=== PATIENT | female | born 1945 | race Caucasian/White ===

== ENCOUNTER → 2016-09-26 | Day surgery (SDC) | payer MEDICARE, OTHER ==
[~2016-09-26] VITALS: Ht 157.5 cm; Wt 80.7 kg
[~2016-09-26] MED LIST: AMIO200T2 PO; APIX5TAB PO; ATOR10TA66 PO; DILT180C54 PO; DILT180C67 PO; ENAL20TA PO; FLU TRIvalent (5 YOA+) 2016-17 (AFLURIA) 0.5 ML IM ONE; LEVO175T5 PO; LIDOCAINE 2% VISCOUS 15 ML UDC ONE; METO-270 PO; METO-272 PO; MIDAZOLAM 2 MG/2 ML (VERSED) VIAL ONE; NS IV 1000 ML 1,000 ML IV SCH; NS IV 1000 ML 1,000 ML ONE; OXYB5TAB PO; OXYB5TAB9 PO; SIMV40TA4 PO; VITA400C60 PO; proPOfol 200 MG/20 ML (DIPRIVAN) VIAL IV ONE
--- OUTSIDE RECORDS SUMMARY | 2016-09-26 08:05 | XMS REPORT | Continuity of Care Document ---
Author Author [facility] Organization [facility] Address Unknown Phone Unavailable Care Team Providers Care Research Coordinator Name Role Phone PCP Unavailable Source Comments Some departments are not documenting in the electronic medical record. If you do not see the information that you expected, contact Release of Information in the Health Information Management department at [phone] for further assistance in locating additional records.[facility] Active Allergies and Adverse Reactions Not on File Current Medications Not on file Active Problems Not on file Social History Tobacco Use Types Packs/Day Years Used Date Never Assessed Plan of Care Health Maintenance Due Date Last Done Comments Physical (Comprehensive) 1952 Exam Pertussis Vaccine 1956 Tetanus Vaccine 1962 Breast Cancer Screening 1985 Colorectal Cancer 1995 Screening Shingles Vaccine 2005 Osteoporosis Screening 2010 Prevnar/Pneumovax (#1) 2010 Influenza Vaccine 05/17/2016 Results from Last 3 Months Not on file
--- OUTSIDE RECORDS SUMMARY | 2016-09-26 08:05 | XMS REPORT | Continuity of Care Document ---
Author Author [facility] Organization [facility] Address Unknown Phone Unavailable Care Team Providers Care Package Dye Stand Loader Name Role Phone PCP Unavailable Source Comments Some departments are not documenting in the electronic medical record. If you do not see the information that you expected, contact Release of Information in the Health Information Management department at [phone] for further assistance in locating additional records.[facility] Active Allergies and Adverse Reactions Not on [...]
[2016-09-26 10:10] VITALS: BP 136/96
[2016-09-26 10:21] LABS: MEAN PLATELET VOLUME 10.2 FL (7.4-10.4); RED BLOOD COUNT 5.31 10^6/uL (4.35-5.85); RED CELL DISTRIBUTION WIDTH 15.4 % (10.0-14.5); WHITE BLOOD COUNT 11.9 10^3/uL (4.3-11.0)
[2016-09-26 10:27] LABS: INR 1.2 (0.8-1.4); PROTHROMBIN TIME PATIENT 15.1 SEC (12.2-14.7)
[2016-09-26 10:34] LABS: ALANINE AMINOTRANSFERASE 21 U/L (0-55); ALBUMIN 4.3 G/DL (3.2-4.5); ANION GAP 8 MMOL/L (5-14); ASPARTATE AMINO TRANSFERASE 26 U/L (5-34); BILIRUBIN,TOTAL 1.4 MG/DL (0.1-1.0); BLOOD UREA NITROGEN 12 MG/DL (7-18); BUN/CREATININE RATIO 14; CALCIUM 9.4 MG/DL (8.5-10.1); CARBON DIOXIDE 28 MMOL/L (21-32); CHLORIDE 102 MMOL/L (98-107); CHOLESTEROL 142 MG/DL (< 200); CREATININE SERUM 0.86 MG/DL (0.60-1.30); DIRECT LDL 78 MG/DL (1-129); GFR ESTIMATED > 60; GLUCOSE 107 MG/DL (70-105); POTASSIUM 4.4 MMOL/L (3.6-5.0); SODIUM 138 MMOL/L (135-145); TOTAL PROTEIN 7.9 G/DL (6.4-8.2); TRIGLYCERIDES 100 MG/DL (<150); VLDL CHOLESTEROL 20 MG/DL (5-40)
--- NOTE | 2016-09-26 10:46 | Diagnostic Imaging Report ---
EXAMINATION: Portable upright radiograph of the chest. INDICATION: Preoperative evaluation for cardioversion. FINDINGS: The heart is mildly enlarged. There is a ring like structure projecting over the lower right lung probably extrinsic. There are also cardioversion pads seen over the left chest. There is no significant consolidation. No effusion or pneumothorax. The mediastinum and melo appear unremarkable. IMPRESSION: Cardiomegaly. Dictated by: Dictated on workstation # [id number]
--- NOTE | 2016-09-26 10:47 | Cardiac Procedure Note-CS/ASA ---
Pre-Procedure Note Pre-Op Procedure Note H&P Reviewed The H&P was reviewed, patient examined and no changes noted. Date H&P Reviewed: Sep 26, 2016 Time H&P Reviewed: 10:47 Conscious Sedation Pre-Proced Time Reviewed: 10:47 ASA Class: 3 Airway Mallampati Classification: (kalisp[place] appropriate class) I. II. III, IV Lungs Heart ASA score ASA 1: a normal healthy patient ASA 2: a patient with a mild systemic disease (mid diabetes, controlled hypertension, obesity x ASA 3: a patient with a severe systemic disease that limits activity (angina , COPD, prior Myocardial infarction) ASA 4: a patient with an incapacitating disease that is a constant threat to life (CHF, renal failure) ASA 5: a moribund patient not expected to survive 24 hrs. (ruptured aneurysm) ASA 6: a declared brain patient whose organs are being harvested. For emergent operations, add the letter E after the classification Grade 3 Sedation Plan: Analgesia, Amnesia, Plan communicated to team members, Discussed options with patient/fam, Discussed risks with patient/fam Note The patient is an appropriate candidate to undergo the planned procedure, sedation, and anesthesia. The patient immediately re-assessed prior to indication. CARLOS FORBES MD Sep 26, 2016 10:47
[2016-09-26 10:55] VITALS: BP 121/69
[2016-09-26 10:55] LABS: THYROID STIMULATING HORMONE 0.16 UIU/ML (0.35-4.94)
--- NOTE | 2016-09-26 10:57 | Progress Note-Standard ---
Standard Progress Note Progress Notes/Assess & Plan Progress/Assessment & Plan Anesthesia Note (1616-1816) Called for sedation (MAC) for FAREED poss. cardioversion. Pt S/E. O2 via N.C. Versed 2 mg IV and Propofol 60 mg IV in divided doses for procedural sedation. Spontaneous ventilation and VSS throughout. Pt tolerated procedure well. Will be available if needed. SOLA FUENTES DO Sep 26, 2016 10:57
--- NOTE | 2016-09-26 11:29 | DISCHARGE SUMMARY ---
[facility] REPORT DATE OF PROCEDURE: 09/26/2016 REFERRING PHYSICIAN: Dr. Diaz. BRIEF HISTORY: Mrs. Miller is a 70-year-old lady with history of atrial fibrillation, left atrial thrombus was suggested by FAREED in July. She was treated with oral anticoagulation and scheduled for FAREED with electrical cardioversion. PROCEDURE NOTE: After explaining the procedure to the patient, all pros and cons were explained. All questions were answered. The patient signed a consent, then she was placed on the left lateral decubitus position. Oropharynx was anesthetized using lidocaine. Conscious sedation achieved with the assistance of anesthesia. Omniplane probe was introduced through the mouth to the esophagus and then into the stomach. Multiple views were obtained. At the end of the procedure Omniplane probe was removed. No complication noted. FINDINGS: 1. The left ventricle is normal in size with normal contractility. 2. The left atrium is dilated. Left atrial appendage is dilated with low velocity. Smoke in the left atrial appendage questionable thrombus was noted. 3. The right atrium is prominent. The right ventricle is normal in size. 4. Mitral valve is normal in morphology with mild mitral regurgitation. 5. Aortic valve is trileaflet with normal opening and closing pattern. 6. Tricuspid valve and pulmonic valve are normal. 7. No pericardial effusion. CONCLUSION: 1. Questionable thrombus in the left atrial appendage. Smoke in the left atrial appendage, dilated left atrium, dilated right atrium. 2. Normal left ventricular size and systolic function. Estimated ejection fraction 60%. 3. Mild mitral regurgitation. DISCUSSION AND RECOMMENDATION: Mrs. Miller will be treated with oral anticoagulation at this time. I will not proceed with electrical cardioversion. FINAL DIAGNOSES: 1. Paroxysmal atrial fibrillation. 2. Left atrial thrombus. 3. Hypertension. 4. Hyperlipidemia. Job ID: [id number] Dictated Date: 09/26/2016 10:48:43 Neon Sign Mechanic Date: 09/26/2016 11:26:29/timothy
[2016-09-26 11:38] VITALS: BP 155/88
== END ==
LOC: CATH 08:02
PROVIDERS: ATTEND Internal Medicine Cardiovascular Disease
DX: I48.0 Paroxysmal atrial fibrillation (principal); I51.3 Intracardiac thrombosis, not elsewhere classified; I10 Essential (primary) hypertension; E78.5 Hyperlipidemia, unspecified; Z79.01 Long term (current) use of anticoagulants; Z79.899 Other long term (current) drug therapy
CPT/HCPCS: 36415; 71010; 80053; 80061; 84443; 85027; 85610; 85730; 87081; 93005; 93312

== ENCOUNTER → 2016-11-20 | Outpatient (CLI) | payer MEDICARE, OTHER ==
[~2016-11-20] MED LIST changes: -FLU TRIvalent (5 YOA+) 2016-17 (AFLURIA) 0.5 ML IM ONE; -LIDOCAINE 2% VISCOUS 15 ML UDC ONE; -MIDAZOLAM 2 MG/2 ML (VERSED) VIAL ONE; -NS IV 1000 ML 1,000 ML IV SCH; -NS IV 1000 ML 1,000 ML ONE; -proPOfol 200 MG/20 ML (DIPRIVAN) VIAL IV ONE
--- OUTSIDE RECORDS SUMMARY | 2016-11-20 09:34 | XMS REPORT | Continuity of Care Document ---
Author Author [facility] Organization [facility] Address Unknown Phone Unavailable Care Team Providers Care Tamale Machine Feeder Name Role Phone PCP Unavailable Source Comments Some departments are not documenting in the electronic medical record. If you do not see the information that you expected, contact Release of Information in the Health Information Management department at [phone] for further assistance in locating additional records.[facility] Active Allergies and Adverse Reactions Not [...]
--- NOTE | 2016-11-20 19:53 | Diagnostic Imaging Report ---
EXAM: Digital mammogram, bilateral screening. The current study was also evaluated with a Computer Aided Detection (CAD) system. COMPARISON: 11/11/14, 10/09/13 and 08/01/12. At this time, there are no current complaints. FINDINGS: As noted on the previous study, the right breast is much smaller than the left breast. The coarse macrocalcifications scattered throughout the right breast seen previously are again evident and do not seem to have changed significantly. There are scattered fibroglandular densities in the left breast which could obscure a lesion. There are also a few benign-appearing calcifications scattered throughout the left breast. When compared to the previous study, there does not not appear to have been any significant change in either breast. There is no primary or secondary sign of malignancy noted. IMPRESSION: 1. There is no evidence of malignancy. 2. The patient should have her annual bilateral screening mammogram on schedule in October of 2017. ACR BI-RADS Category 1: Negative. Result letter will be mailed to the patient. Note: At least 10% of breast cancer is not imaged by mammography. Dictated by: Dictated on workstation # [id number]
== END ==
LOC: RAD 09:31
PROVIDERS: ATTEND Family Medicine
DX: Z12.31 Encounter for screening mammogram for malignant neoplasm of breast (principal)
CPT/HCPCS: 77067

== ENCOUNTER 2017-04-12 19:30 | Outpatient (CLI) | payer MEDICARE | END 2017-04-13 06:00 | disposition home or self-care (01) | LOC: SLEEP 19:30 | PROVIDERS: ATTEND Family Medicine | DX: G47.33 Obstructive sleep apnea (adult) (pediatric) (principal); R06.83 Snoring | CPT/HCPCS: 95811 ==

== ENCOUNTER → 2017-06-04 | Outpatient (CLI) | payer MEDICARE | LOC: CARD 11:52 | PROVIDERS: ATTEND Physician Assistant | DX: I48.2 Chronic atrial fibrillation (principal); I10 Essential (primary) hypertension; E78.2 Mixed hyperlipidemia; R06.02 Shortness of breath | CPT/HCPCS: 93306 ==

== ENCOUNTER → 2017-08-02 | Outpatient (CLI) | payer MEDICARE, OTHER ==
[~2017-08-02] MED LIST changes: -METO-270 PO; -METO-272 PO; +METO-370 PO; +METO-387 PO
--- NOTE | 2017-08-02 14:57 | Diagnostic Imaging Report ---
Two views of the right humerus. INDICATION: Fall. FINDINGS: No fracture or dislocation is seen. Surgical clips along the right breast are seen. Mild degenerative changes in the right acromioclavicular joint are noted. IMPRESSION: No acute process. Dictated by: Dictated on workstation # [id number]
== END ==
LOC: RAD 11:06
PROVIDERS: ATTEND Nurse Practitioner Family
DX: M79.621 Pain in right upper arm (principal)
CPT/HCPCS: 73060

== ENCOUNTER → 2017-12-24 | Outpatient (CLI) | payer MEDICARE ==
--- NOTE | 2017-12-24 13:10 | Diagnostic Imaging Report ---
INDICATION: Routine screening. COMPARISON: Comparison is made with prior studies from 11/20/2016 and 11/11/2014. The current study was also evaluated with a Computer Aided Detection (CAD) system. FINDINGS: Breast asymmetry, right breast being smaller, is again noted. Scattered fibroglandular densities in the left breast appear stable. Marked dystrophic calcifications through the right breast are again noted with scattered benign-appearing calcifications in the left breast. There is an emerging cluster of microcalcifications in the upper left breast anterior depth. Additional views including magnification and ML views are recommended. No spiculated mass is seen. The axillae are unremarkable. IMPRESSION: Left breast calcifications. Additional views are recommended, as described above. ACR BI-RADS Category 0: Incomplete. (Needs additional imaging evaluation). Result letter will be mailed to the patient. Note: At least 10% of breast cancer is not imaged by mammography. Dictated by: Dictated on workstation # [id number]
== END ==
LOC: RAD 08:55
PROVIDERS: ATTEND Family Medicine
DX: Z12.31 Encounter for screening mammogram for malignant neoplasm of breast (principal)
CPT/HCPCS: 77067

== ENCOUNTER → 2018-01-17 | Outpatient (CLI) | payer MEDICARE ==
--- NOTE | 2018-01-17 13:40 | Diagnostic Imaging Report ---
Indication: Left breast calcification. Patient presents for additional views. Correlation is made with the recent screening study from 12/24/2017. 2-D and 3-D unilateral left diagnostic mammography was performed. There are some calcifications in the superior left breast. These appear to be fairly benign. No associated soft tissue mass is seen. No significant pleomorphism is identified. Impression: BI-RADS 3 Probably benign calcification superior left breast anterior depth. Even so, followup left mammogram in 6 months is recommended to confirm stability. ACR BI-RADS Category 3: Probably benign findings. Result letter will be mailed to the patient. Note: At least 10% of breast cancer is not imaged by mammography. Dictated by: Dictated on workstation # [id number]
== END ==
LOC: RAD 12:39
PROVIDERS: ATTEND Nurse Practitioner Family
DX: R92.0 Mammographic microcalcification found on diagnostic imaging of breast (principal)

== ENCOUNTER → 2018-09-03 | Outpatient (CLI) | payer MEDICARE ==
[~2018-09-03] MED LIST changes: -AMIO200T2 PO; +AMIO200T4 PO
--- NOTE | 2018-09-03 10:06 | Diagnostic Imaging Report ---
Indication: Six-month followup left breast calcifications. Correlation is made with prior mammogram from 12/24/2017 and 01/17/2018. Unilateral left 2-D and 3-D diagnostic mammography was performed including CC, MLO and ML views. Calcifications in the upper and slightly outer left breast anterior depth appear to be stable. No soft tissue mass is seen. There are numerous benign calcifications throughout the left breast. Left axilla is unremarkable. Impression: BI-RADS 3 Stable left breast calcification. Followup mammogram in 6 months recommended to confirm stability. ACR BI-RADS Category 3: Probably benign findings. Result letter will be mailed to the patient. Note: At least 10% of breast cancer is not imaged by mammography. Dictated by: Dictated on workstation # [id number]
== END ==
LOC: RAD 08:08
PROVIDERS: ATTEND Family Medicine
DX: R92.0 Mammographic microcalcification found on diagnostic imaging of breast (principal); Z85.3 Personal history of malignant neoplasm of breast

== ENCOUNTER → 2018-09-17 | Outpatient (CLI) | payer MEDICARE | LOC: CARD 12:41 | PROVIDERS: ATTEND Internal Medicine Cardiovascular Disease | DX: I48.0 Paroxysmal atrial fibrillation (principal); R06.02 Shortness of breath; I10 Essential (primary) hypertension; E78.2 Mixed hyperlipidemia | CPT/HCPCS: 93306 ==

== ENCOUNTER → 2019-02-13 | Outpatient (CLI) | payer MEDICARE ==
--- NOTE | 2019-02-13 15:36 | Diagnostic Imaging Report ---
PROCEDURE: US Bilateral lower extremity arterial. TECHNIQUE: Multiple real-time grayscale images are obtained through both lower extremity arterial systems with color Doppler imaging and color Doppler spectral analysis. INDICATION: Bilateral cold feet. FINDINGS: There are primarily triphasic and biphasic waveforms throughout both lower extremity arterial systems. Velocities are symmetric bilaterally. No velocity elevation or stenosis is seen. No occlusion is identified. IMPRESSION: Unremarkable bilateral lower extremity arterial Doppler. Dictated by: Dictated on workstation # [id number]
== END ==
LOC: RAD 13:08
PROVIDERS: ATTEND Family Medicine
DX: R20.9 Unspecified disturbances of skin sensation (principal); E08.59 Diabetes mellitus due to underlying condition with other circulatory complications
CPT/HCPCS: 93925

== ENCOUNTER → 2019-05-21 | Outpatient (CLI) | payer MEDICARE ==
--- NOTE | 2019-05-21 13:44 | Diagnostic Imaging Report ---
Indication: Six-month followup of left breast calcifications. The patient also has right breast carcinoma. Correlation is made with prior mammograms from 09/03/2018 and 01/17/2018. 2-D and 3-D bilateral diagnostic mammography was performed with CAD. Scattered fibroglandular densities in the left breast are identified. There is marked dystrophic calcifications in the right breast, post therapeutic. Overall appearance is stable. Calcifications noted in the anterior aspect of the left breast upper aspect appear to be stable. Numerous benign calcifications throughout the left breast are also noted. No new mass is seen. Axillae are unremarkable. Impression: BI-RADS Category 3. Stable bilateral mammograms. Left breast calcifications now show 18 months of stability. One additional six-month followup is recommended to confirm stability. ACR BI-RADS Category 3: Probably benign findings. Result letter will be mailed to the patient. Note: At least 10% of breast cancer is not imaged by mammography. Dictated by: Dictated on workstation # [id number]
== END ==
LOC: RAD 08:13
PROVIDERS: ATTEND Family Medicine
DX: C50.911 Malignant neoplasm of unspecified site of right female breast (principal); R92.1 Mammographic calcification found on diagnostic imaging of breast
CPT/HCPCS: 77066

== ENCOUNTER → 2019-11-26 | Outpatient (CLI) | payer MEDICARE ==
[~2019-11-26] MED LIST changes: -METO-370 PO; -METO-387 PO; +METO50TA7 PO; +MTP25TSR PO; +OXYB-52 PO; -OXYB5TAB PO; +OXYB5TAB13 PO; -OXYB5TAB9 PO; +SIMV40TA25 PO; -SIMV40TA4 PO
--- NOTE | 2019-11-26 09:13 | Diagnostic Imaging Report ---
INDICATION: Six-month follow-up of left breast calcifications. Correlation is made with mammograms dating back to 2017. Unilateral left 2-D and 3-D diagnostic mammography was performed with CAD. Left breast calcifications are stable. In particular the calcifications in the retroareolar left breast appear to be stable. These now show 2 years of stability. No mass is seen. Left axilla are unremarkable. IMPRESSION: BI-RADS 2 No mammographic features suspicious for malignancy. In particular, left breast calcifications that have been followed now show 2 years of stability. Patient may return to routine annual screening mammography. ACR BI-RADS Category 2: Benign findings. Result letter will be mailed to the patient. Note: At least 10% of breast cancer is not imaged by mammography. Dictated by: Dictated on workstation # [id number]
== END ==
LOC: RAD 08:31
PROVIDERS: ATTEND Nurse Practitioner Family
DX: N63.20 Unspecified lump in the left breast, unspecified quadrant (principal); R92.1 Mammographic calcification found on diagnostic imaging of breast

== ENCOUNTER → 2020-07-11 | Outpatient (CLI) | payer MEDICARE ==
[~2020-07-11] MED LIST changes: -AMIO200T4 PO; +AMIO200T6 PO; -ENAL20TA PO; +ENAL20TA16 PO
== END ==
LOC: CARD 12:00
PROVIDERS: ATTEND Internal Medicine Cardiovascular Disease
DX: I48.91 Unspecified atrial fibrillation (principal); I11.9 Hypertensive heart disease without heart failure; E78.2 Mixed hyperlipidemia; R06.02 Shortness of breath; I08.3 Combined rheumatic disorders of mitral, aortic and tricuspid valves
CPT/HCPCS: 93306

== ENCOUNTER → 2020-12-13 | Outpatient (CLI) | payer MEDICARE ==
--- NOTE | 2020-12-14 07:34 | Diagnostic Imaging Report ---
EXAMINATION: Digital mammogram INDICATION: Bilateral screening This study was compared to the prior exams of 11/26/2019, 05/21/2019, 09/03/2018 and 12/24/2017. At this time there are no current complaints. By history the patient has had a prior lumpectomy on the right for carcinoma in 1997. As noted on the prior studies the right breast is considerably smaller than the left breast and there are diffuse dystrophic calcifications throughout the right breast. These findings are quite similar to the prior exam. However in the interval since this prior exam a small group of microcalcifications has developed in the inferomedial aspect of the right breast at middle depth. These calcifications lie approximately 5 cm from the nipple in the 5 o'clock position of the right breast. These calcifications are most likely benign. Even so, I would recommend that a compression/magnification of this area be obtained in the CC and ML projections to better characterize them. The previous study also noted a number of micro-calcifications scattered throughout the lateral aspect of the left breast. Those micro-calcifications are again evident and no different. The fibroglandular tissue in both breasts is heterogeneously dense. This does limit the sensitivity of this exam. There is no primary or secondary sign of malignancy noted. IMPRESSION: 1. Additional mammographic views of the microcalcifications in the right breast would be recommended for further study. 2. There is no evidence of malignancy involving the left breast. ACR BI-RADS Category 0: Incomplete. (Needs additional imaging evaluation). Result letter will be mailed to the patient. Note: At least 10% of breast cancer is not imaged by mammography. Dictated by: Dictated on workstation # [id number]
== END ==
LOC: RAD 13:16
PROVIDERS: ATTEND Nurse Practitioner
DX: Z12.31 Encounter for screening mammogram for malignant neoplasm of breast (principal)
CPT/HCPCS: 77063; 77067

== ENCOUNTER → 2020-12-30 | Outpatient (CLI) | payer MEDICARE ==
--- NOTE | 2020-12-30 15:06 | Diagnostic Imaging Report ---
INDICATION: Right breast calcifications. Patient presents for additional views. Correlation is made with screening study from 12/13/2020. Unilateral right 2-D and 3-D diagnostic mammography was performed with CAD. Included magnification CC and ML views as well as conventional 90 degree lateral views. Punctate cluster of microcalcifications in the lower inner right breast appear benign. No associated soft tissue mass is seen. There are numerous dystrophic calcifications throughout the right breast. IMPRESSION: BI-RADS Category 2. Benign-appearing calcifications in the lower inner right breast. The patient may return to routine annual screening mammography. Dictated by: Dictated on workstation # [id number]
== END ==
LOC: RAD 13:45
PROVIDERS: ATTEND Nurse Practitioner
DX: R92.1 Mammographic calcification found on diagnostic imaging of breast (principal); Z85.3 Personal history of malignant neoplasm of breast
CPT/HCPCS: 77065; G0279

== ENCOUNTER → 2021-11-20 | Outpatient (CLI) | payer MEDICARE ==
[~2021-11-20] VITALS: Ht 157 cm; Wt 87.0 kg
[~2021-11-20] MED LIST changes: -AMIO200T6 PO; +AMIO200T65 PO; +REGADENOSON 0.4 MG/5 ML SYR (LEXISCAN) IV ONE
[2021-11-20] MEDS: CATHETER FLUSH 10 ML SYR IVP PRN ×2 (08:28→09:58)
[2021-11-20 09:55] VITALS: BP 154/91
--- NOTE | 2021-11-20 12:37 | Cardiology Stress Test Report ---
Stress Test Report Date of Procedure/Referring: Date of Procedure: Nov 20, 2021 Emili Borges Admitting Physician No,Local Physician Indications: A Fib Baseline Heart Rate: 110 Baseline Blood Pressure: Blood Pressure Systolic: 154 Blood Pressure Diastolic: 91 Baseline Vitals Vital Signs Date Time Temp Pulse Resp B/P (MAP) Pulse Ox O2 Delivery O2 Flow Rate FiO2 11/20/21 09:55 110 20 154/91 (112) 98 Room Air Baseline EKG: Baseline EKG: atrial fibrillation Summary After explaining the procedure to the patient, she signed a consent and then brought to the stress nuclear laboratory. Patient received 0.4 mg Lexiscan for stress test, ECG, heart rate and blood pressure were monitored continuously. Resting and stress dose of radio tracer were injected, imaging was acquired and reviewed in short axis, horizontal long axis and vertical long axis views. TID: 0.82 SSS: 4 SDS: 3 EF: 79 1. Patient tolerated Lexiscan well 2. Baseline atrial fibrillation persisted during test 3. Vertical axis of the ventricle affecting the quality of the images with mild reversible ischemia involving the apex most probably due to to the vertical position of the left ventricle. Overall there is no significant ischemia or infarction on SPECT images 4. Normal left ventricular size, EF 79%, gated images are unreliable due to underlying atrial fibrillation CARLOS FORBES MD Nov 20, 2021 12:37
== END ==
LOC: CARD 08:30
PROVIDERS: ATTEND Physician Assistant
DX: I48.20 Chronic atrial fibrillation, unspecified (principal)
CPT/HCPCS: 78452; 93017; A9502

== ENCOUNTER → 2022-01-16 | Outpatient (CLI) | payer MEDICARE ==
[~2022-01-16] MED LIST changes: -REGADENOSON 0.4 MG/5 ML SYR (LEXISCAN) IV ONE
--- NOTE | 2022-01-16 14:45 | Diagnostic Imaging Report ---
INDICATION: Postmenopausal state. COMPARISON: 01/26/2003. FINDINGS: AP Spine L1-L4: [BMD (g/cm2): 1.243] [T-Score: 0.4] [Z-Score: 1.4] [BMD Previous: 1.440] [BMD % Change: -13.7] LT Hip Neck: [BMD (g/cm2): 0.922] [T-Score: -0.8] [Z-Score: 0.6] LT Hip Total: [BMD (g/cm2):0.945] [T-Score:-0.5] [Z-Score: 0.7] [BMD Previous: 1.027] [BMD % Change: -8.1] RT Hip Neck: [BMD (g/cm2):0.744] [T-Score:-2.1] [Z-Score:-0.6] RT Hip Total: [BMD (g/cm2):0.788] [T-score:-1.7] [Z-Score:-0.5] [BMD Previous:1.136] [BMD % Change:-30.6] *Indicates significant change from prior examination based on 95% confidence level. World Health Organization criteria for BMD interpretation classify patients as Normal (T-score at or above -1.0), Osteopenic (T-score between -1.0 and -2.5) or Osteoporotic (T-score at or below -2.5). LIMITATIONS AND MODIFICATION: None. FRACTURE RISK (FRAX SCORE): The ten year probability of (%): Major Osteoporotic Fracture: [13.3] Hip Fracture: [3.6] IMPRESSION: 1. Osteopenia (Low bone mass). 2. No significant change in bone mineral density since prior examination. 3. See below National Osteoporosis Foundation guidelines on when to potentially initiate pharmacologic therapy. Based on the National Osteoporosis Foundation Guidelines, pharmacologic treatment should be initiated in any of the following, unless clinical conditions suggest otherwise: * Any patient with prior fragility fracture of the hip or vertebrae. A spine fracture indicates 5X risk for subsequent spine fracture and 2X risk for subsequent hip fracture. * Osteoporosis (T-score <-2.5). * Postmenopausal women and men age 50 and older with low bone mass/osteopenia (T-score between -1.0 and -2.5) by DXA and 10-year major osteoporotic fracture greater than 20% or a 10-year probability of hip fracture greater than 3%. These fracture risks are supplied above in the FRAX score, if applicable. * Clinician judgement and/or patient preferences may indicate treatment for people with 10-year fracture probabilities above or below these levels. Dictated by: Dictated on workstation # [id number]
== END ==
LOC: RAD 14:00
PROVIDERS: ATTEND Nurse Practitioner
DX: M85.59 Aneurysmal bone cyst, multiple sites (principal); Z78.0 Asymptomatic menopausal state
CPT/HCPCS: 77080

== ENCOUNTER → 2022-03-02 | Outpatient (CLI) | payer MEDICARE ==
--- NOTE | 2022-03-02 16:13 | Diagnostic Imaging Report ---
INDICATION: Routine screening. Comparison is made with prior mammogram from 12/13/2020 and 05/21/2019. 2-D and 3-D bilateral screening mammography was performed with CAD. Posterior changes of the right breast are again noted. Right breast is considerably smaller than the left. There is significant dystrophic calcifications throughout the right breast. There are scattered benign calcification throughout the left breast. No mass is identified. No malignant-appearing microcalcifications are seen. Axillae are unremarkable. IMPRESSION: No mammographic features suspicious for malignancy are identified. ACR BI-RADS Category 2: Benign findings. Result letter will be mailed to the patient. Note: At least 10% of breast cancer is not imaged by mammography. BI-RADS Category 2 Dictated by: Dictated on workstation # [id number]
== END ==
LOC: RAD 11:30
PROVIDERS: ATTEND Nurse Practitioner
DX: Z12.31 Encounter for screening mammogram for malignant neoplasm of breast (principal)
CPT/HCPCS: 77063; 77067

== ENCOUNTER 2022-07-05 12:58 | Inpatient (IN) | payer MEDICARE ==
[~2022-07-05] VITALS: Ht 157.5 cm; Wt 84.5 kg
--- NOTE | 2022-07-05 13:07 | ED Fall/Injury ---
General Stated Complaint: RT KNEE PAIN Source: patient, EMS Exam Limitations: no limitations History of Present Illness Date Seen by Provider: Jul 05, 2022 Time Seen by Provider: 12:59 Initial Comments 76-year-old female with past medical history of persistent A. fib on blood thinners coming in via EMS from home after a fall. Around 12:00 she was walking outside, right foot got stuck, fell and landed on her right side. Has severe right hip pain which is constant, worse with movement, better with rest. EMS reports she was in A. fib with blood pressure in the 90s systolic. She denies hitting her head or passing out. She denies any headache, and states she remembers all events. Denies any other extremity pain other than her right hip. Also denies any neck or back pain. Allergies and Home Medications Allergies Coded Allergies: No Allergy Information Available (Unverified , 05/28/16) Patient Home Medication List Home Medication List Reviewed: Yes Amiodarone HCl (Amiodarone HCl) 200 Mg Tablet, 400 MG PO BID Prescribed by: RIVER MANLEY on 01/17/17 1418 Apixaban (Eliquis) 5 Mg Tablet, 5 MG PO BID, (Reported) Entered as Reported by: TIFFANY MUELLER on 07/18/16 1032 Atorvastatin Calcium (Atorvastatin Calcium) 10 Mg Tablet, 10 MG PO HS Prescribed by: RIVER MANLEY on 01/17/17 1431 Diltiazem HCl (Cartia Xt) 180 Mg Cap.er.24h, 180 MG PO DAILY, (Reported) Entered as Reported by: ITFFANY MUELLER on 09/26/16 1022 Enalapril Maleate (Enalapril Maleate) 20 Mg Tablet, 20 MG PO HS, (Reported) Entered as Reported by: TIFFANY MUELLER on 07/18/16 1032 Levothyroxine Sodium (Levothyroxine Sodium) 175 Mcg Tablet, 175 MCG PO DAILY, (Reported) Entered as Reported by: TIFFANY MUELLER on 07/18/16 1032 Metoprolol Succinate (Metoprolol Succinate) 50 Mg Tab.er.24h, 50 MG PO DAILY, (Reported) Entered as Reported by: TIFFANY MUELLER on 09/26/16 1023 Oxybutynin Chloride (Oxybutynin Chloride) 5 Mg Tablet, 5 MG PO HS, (Reported) Entered as Reported by: TIFFANY MUELLER on 07/18/16 1044 Vitamin E Acetate (Vitamin E) 400 Unit Capsule, 400 UNIT PO DAILY, (Reported) Entered as Reported by: TIFFANY MUELLER on 07/18/16 1032 Review of Systems Review of Systems Constitutional: No fever Eyes: No Symptoms Reported Ears, Nose, Mouth, Throat: no symptoms reported Respiratory: no symptoms reported Cardiovascular: no symptoms reported Gastrointestinal: no symptoms reported Genitourinary: no symptoms reported Musculoskeletal: see HPI Skin: no symptoms reported Psychiatric/Neurological: No Symptoms Reported All Other Systems Reviewed Negative Unless Noted: Yes Past Uzytevr-Djwvht-Jprfuz Hx Patient Social History Substance use?: No Alcohol Use?: No Past Medical History Surgeries: Yes (bladder sx) Breast Physical Exam Vital Signs Vital Signs - First Documented 07/05/22 12:59 Temp 36.3 Pulse 76 Resp 18 B/P (MAP) 100/53 (69) Pulse Ox 96 Capillary Refill : Height, Weight, BMI Height: 5'2.00" Weight: 189lbs. 8.5oz. [id number]; 35.29 BMI Method: General Appearance: WD/WN, no apparent distress HEENT: PERRL/EOMI, normal ENT inspection, pharynx normal Neck: non-tender, full range of motion, supple, normal inspection Cardiovascular: regular rate, rhythm, no edema, no murmur Respiratory: chest non-tender, lungs clear, normal breath sounds, no respiratory distress, no accessory muscle use Gastrointestinal: normal bowel sounds, non tender, soft; No distended, No guarding, No rebound Back: normal inspection, no CVA tenderness, no vertebral tenderness Extremities: no pedal edema, no calf tenderness, normal capillary refill, other (Right lower extremity externally rotated and shortened, neurovascularly intact distally, knee extension intact, tender along the proximal femur and hip) Neurologic/Psychiatric: no motor/sensory deficits, alert, normal mood/affect, oriented x 3 Skin: normal color, warm/dry Lymphatic: no adenopathy Malcolm Coma Score Best Eye Response: (4) Open Spontaneously Best Verbal Response: (5) Oriented Best Motor Response: (6) Obeys Commands Progress/Results/Core Measures Results/Orders Lab Results Laboratory Tests Test 07/05/22 13:15 Range/Units White Blood Count 11.4 H 4.3-11.0 10^3/uL Red Blood Count 4.53 3.80-5.11 10^6/uL Hemoglobin 14.2 11.5-16.0 g/dL Hematocrit 42 35-52 % Mean Corpuscular Volume 92 80-99 fL Mean Corpuscular Hemoglobin 31 25-34 pg Mean Corpuscular Hemoglobin Concent 34 32-36 g/dL Red Cell Distribution Width 15.9 H 10.0-14.5 % Platelet Count 270 130-400 10^3/uL Mean Platelet Volume 9.4 9.0-12.2 fL Immature Granulocyte % (Auto) 1 % Neutrophils (%) (Auto) 70 42-75 % Lymphocytes (%) (Auto) 21 12-44 % Monocytes (%) (Auto) 7 0-12 % Eosinophils (%) (Auto) 1 0-10 % Basophils (%) (Auto) 0 0-10 % Neutrophils # (Auto) 8.0 H 1.8-7.8 10^3/uL Lymphocytes # (Auto) 2.4 1.0-4.0 10^3/uL Monocytes # (Auto) 0.8 0.0-1.0 10^3/uL Eosinophils # (Auto) 0.1 0.0-0.3 10^3/uL Basophils # (Auto) 0.1 0.0-0.1 10^3/uL Immature Granulocyte # (Auto) 0.1 0.0-0.1 10^3/uL Prothrombin Time 23.3 H 12.2-14.7 SEC INR Comment 2.0 H 0.8-1.4 Activated Partial Thromboplast Time 44 H 24-35 SEC Sodium Level 126 L 135-145 MMOL/L Potassium Level 3.5 L 3.6-5.0 MMOL/L Chloride Level 90 L 98-107 MMOL/L Carbon Dioxide Level 25 21-32 MMOL/L Anion Gap 11 5-14 MMOL/L Blood Urea Nitrogen 15 7-18 MG/DL Creatinine 1.15 0.60-1.30 MG/DL Estimat Glomerular Filtration Rate 49 BUN/Creatinine Ratio 13 Glucose Level 163 H 70-105 MG/DL Calcium Level 8.9 8.5-10.1 MG/DL Corrected Calcium 9.1 8.5-10.1 MG/DL Total Bilirubin 1.7 H 0.1-1.0 MG/DL Aspartate Amino Transf (AST/SGOT) 29 5-34 U/L Alanine Aminotransferase (ALT/SGPT) 18 0-55 U/L Alkaline Phosphatase 58 40-136 U/L Total Protein 6.7 6.4-8.2 GM/DL Albumin 3.8 3.2-4.5 GM/DL My Orders Orders - CATALINA BOB MD Cbc With Automated Diff (07/05/22 13:04) Comprehensive Metabolic Panel (07/05/22 13:04) Protime With Inr (07/05/22 13:04) Partial Thromboplastin Time (07/05/22 13:04) Ct Head/Cervical Spine Wo (07/05/22 13:04) Femur, Right, 2 Views (07/05/22 13:04) Pelvis With Right Hip 2-3views (07/05/22 13:04) Fentanyl Inj (Sublimaze Injection) (07/05/22 13:15) Chest 1 View, Ap/Pa Only (07/05/22 13:50) Ed Admission (Communication) (07/05/22 14:42) Medications Given in ED Current Medications Medications Dose Ordered Sig/Donavon Route Start Time Stop Time Status Last Admin Dose Admin Fentanyl Citrate 50 mcg ONCE ONCE IVP 07/05/22 13:15 07/05/22 13:16 DC 07/05/22:22 50 MCG Vital Signs/I&O 07/05/22 12:59 Temp 36.3 Pulse 76 Resp 18 B/P (MAP) 100/53 (69) Pulse Ox 96 Progress Progress Note : Progress Note 76-year-old female with above history coming in after mechanical fall landing on her right side. ABCs were intact and vitals were stable on presentation with a GCS of 15. Physical exam with a externally rotated and shortened right hip. X- ray of the pelvis with a right-sided impacted mildly displaced intertrochanter fracture. I contacted Dr. MCCALL who recommends going to the OR tomorrow with her being n.p.o. at midnight. CT head and chest x-ray otherwise negative for any acute findings. Contacted Dr. Cazares who admit the patient for further evaluation and management. Also contacted Dr. Barr for consultation given her A. fib. Diagnostic Imaging Diagonstic Imaging: Xray (pelvis, right femur, chest), CT (head) Comments [facility], [place] NAME: CHAYO CALVERT [facility] REC#: [id number] PT STATUS: REG ER : 1945 PHYSICIAN: CATALINA BOB MD ADMIT DATE: 07/05/22/ER Draft Date of Exam:07/05/22 FEMUR, RIGHT, 2 VIEWS INDICATION: Post fall onto concrete, trauma, pain TECHNIQUE: Frontal and lateral views of the right femur CORRELATION STUDY: None FINDINGS: Comminuted, impacted and mildly angulated right intertrochanteric femur fracture. There is preservation of femoral head acetabular relationship. The remainder of the femur is otherwise intact. While limited assessment, there appears to be rather advanced degenerative changes at the right knee. IMPRESSION: 1. Comminuted, impacted right intertrochanteric proximal femur fracture. Dictated on workstation # [id number] Dict: 07/05/22 1416 Trans: 07/05/22 [facility] [id number] Interpreted by: TRENT BEAN DO Electronically signed by: Departure Impression Primary Impression: Intertrochanteric fracture Qualified Codes: S72.141A - Displaced intertrochanteric fracture of right femur, initial encounter for closed fracture Additional Impression: Afib Qualified Codes: I48.21 - Permanent atrial fibrillation Disposition: ADMITTED INPATIENT Condition: Stable Admissions Decision to Admit Reason: Admit from ER (General) Decision to Admit/Date: Jul 05, 2022 Time/Decision to Admit Time: 14:30 Departure-Patient Inst. Referrals: Kranthi POOL MD (PCP) Primary Care Physician CATALINA BOB MD Jul 05, 2022 13:07
[2022-07-05] MEDS ORDERED: fentaNYL INJ 100 MCG/2 ML AMP IVP ONE (13:15)
[2022-07-05 13:24] LABS: BASOPHILS # (AUTO) 0.1 10^3/uL (0.0-0.1); BASOPHILS % (AUTO) 0 % (0-10); EOSINOPHILS # (AUTO) 0.1 10^3/uL (0.0-0.3); EOSINOPHILS % (AUTO) 1 % (0-10); HEMATOCRIT 42 % (35-52); HEMOGLOBIN 14.2 g/dL (11.5-16.0); LYMPHOCYTES # (AUTO) 2.4 10^3/uL (1.0-4.0); LYMPHOCYTES % (AUTO) 21 % (12-44); MEAN CORPUSCULAR HEMOGLOBIN 31 pg (25-34); MEAN CORPUSCULAR HGB CONC 34 g/dL (32-36); MEAN CORPUSCULAR VOLUME 92 fL (80-99); MEAN PLATELET VOLUME 9.4 fL (9.0-12.2); MONOCYTES # (AUTO) 0.8 10^3/uL (0.0-1.0); MONOCYTES % (AUTO) 7 % (0-12); NEUTROPHILS % (AUTO) 70 % (42-75); PLATELET COUNT 270 10^3/uL (130-400); WHITE BLOOD COUNT 11.4 10^3/uL (4.3-11.0)
[2022-07-05 13:38] LABS: PROTHROMBIN TIME PATIENT 23.3 SEC (12.2-14.7)
[2022-07-05 13:40] LABS: ALBUMIN 3.8 GM/DL (3.2-4.5)
[2022-07-05 13:41] LABS: POTASSIUM 3.5 MMOL/L (3.6-5.0)
[2022-07-05 13:42] LABS: CALCIUM 8.9 MG/DL (8.5-10.1)
[2022-07-05 13:43] LABS: TOTAL PROTEIN 6.7 GM/DL (6.4-8.2)
[2022-07-05 13:45] LABS: BILIRUBIN,TOTAL 1.7 MG/DL (0.1-1.0)
[2022-07-05 13:47] LABS: CREATININE SERUM 1.15 MG/DL (0.60-1.30)
--- NOTE | 2022-07-05 14:07 | Diagnostic Imaging Report ---
PROCEDURE: CT head and CT cervical spine without contrast. TECHNIQUE: Multiple contiguous axial images were obtained through the brain and cervical spine without the use of intravenous contrast. Sagittal and coronal reformations through the cervical spine were then performed. Auto Exposure Controls were utilized during the CT exam to meet ALARA standards for radiation dose reduction. INDICATION: Fall and on blood thinners. Comparison is made with prior head CT from 05/28/2016. CT HEAD: Encephalomalacia in the right cerebellar hemisphere appears similar to prior exam. The ventricles and sulci appears stable. No sulcal effacement or midline shift is identified. No acute intra-axial or extra-axial hemorrhage is detected. Cisterns are patent. Visualized paranasal sinuses are clear. IMPRESSION: Stable chronic changes. No acute intracranial process is detected. CT CERVICAL SPINE: There is minimal anterolisthesis of C3 on C4 and C4 on C5. Multilevel degenerative disc disease is noted with variable disc space narrowing and marginal spurring. No fractures are seen. The prevertebral tissues are within normal limits. There is multilevel facet arthropathy. Odontoid is intact. IMPRESSION: Cervical spondylosis. No acute bony abnormality is detected. Dictated by: Dictated on workstation # [id number]
--- NOTE | 2022-07-05 14:12 | Diagnostic Imaging Report ---
EXAMINATION: Chest 1 view HISTORY: Chest pain after fall. COMPARISON: 01/16/2017. FINDINGS: Heart size and pulmonary vasculature are normal. The lungs are clear without consolidation, pleural effusion, or pneumothorax. Degenerative changes of the thoracic spine. Osseous structures are otherwise intact. IMPRESSION: 1. No acute radiographic abnormality in the chest. Dictated by: Dictated on workstation # [id number]
--- NOTE | 2022-07-05 14:19 | Diagnostic Imaging Report ---
INDICATION: Trauma, fall on concrete, pain. TECHNIQUE: AP pelvis along with 2 views right hip, 01:52 p.m. CORRELATION STUDY: None. FINDINGS: There is a markedly comminuted, impacted mildly angulated right intertrochanteric femur fracture. Mild coxa vara alignment. Large rounded calcification of the soft tissue superior and lateral to the hip, likely of no significance. The remainder of the pelvis is otherwise intact with the pectineal lines and obturator rings maintained. Left hip joint with moderate degenerative change but otherwise unremarkable. Findings compatible with prior right abdominal wall hernia repair. IMPRESSION: Comminuted, impacted mildly angulated right intertrochanteric femur fracture. Dictated by: Dictated on workstation # [id number]
--- NOTE | 2022-07-05 14:19 | Diagnostic Imaging Report ---
INDICATION: Post fall onto concrete, trauma, pain TECHNIQUE: Frontal and lateral views of the right femur CORRELATION STUDY: None FINDINGS: Comminuted, impacted and mildly angulated right intertrochanteric femur fracture. There is preservation of femoral head acetabular relationship. The remainder of the femur is otherwise intact. While limited assessment, there appears to be rather advanced degenerative changes at the right knee. IMPRESSION: 1. Comminuted, impacted right intertrochanteric proximal femur fracture. Dictated by: Dictated on workstation # [id number]
[2022-07-05] MEDS ORDERED: morphine INJ 10 MG/ML 1ML (SYR OR VIAL) IVP STA (16:00)
[2022-07-05] MEDS ORDERED: ONDANSETRON 4 MG/2 ML (SDV) Z0FRAN ONE (16:07)
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
[2022-07-05] MEDS ORDERED: diphenhydrAMINE 25 MG TAB (BENADRYL) PO PRN (17:00)
[2022-07-05] MEDS ORDERED: cloNIDine 0.1 MG (CATAPRES) TAB PO PRN (17:00)
[2022-07-05] MEDS ORDERED: LACTULOSE SYRUP 10GM/15ML (ENULOSE) 30ML UDC PO PRN (17:00)
[2022-07-05] MEDS ORDERED: polyethylene glycoL POWDER 17 GM (MIRALAX) PACK PO PRN (17:00)
[2022-07-05] MEDS ORDERED: ANTACID SUSP 30 ML UDC (MYLANTA) PO PRN (17:00)
[2022-07-05] MEDS ORDERED: ONDANSETRON 4 MG (ZOFRAN) ORAL DISSOLVE TAB PO PRN (17:00)
[2022-07-05] MEDS ORDERED: diphenhydrAMINE 50 MG/ML INJ (BENADRYL) IVP PRN (17:00)
[2022-07-05] MEDS ORDERED: MILK OF MAGNESIA 400 MG/5 ML 30 ML UDC PO PRN (17:00)
[2022-07-05] MEDS ORDERED: LORazepam 0.5 MG (ATIVAN) TABLET PO PRN (17:00)
[2022-07-05] MEDS ORDERED: morphine INJ 4 MG/ML 1 ML (VIAL/SYRINGE) IV PRN (17:00)
[2022-07-05] MEDS ORDERED: POTASSIUM CHLORIDE INJ 20 MEQ in NS IV 1000 ML 1,000 ML IV SCH (17:00)
[2022-07-05] MEDS ORDERED: BISACODYL 10 MG SUPP (DULCOLAX) PR PRN (17:00)
[2022-07-05] MEDS ORDERED: CALCIUM CARBONATE 500 MG (TUMS) TAB.CHEW PO PRN (17:00)
[2022-07-05] MEDS ORDERED: ONDANSETRON 4 MG/2 ML (SDV) Z0FRAN IV PRN (17:00)
[2022-07-05] MEDS ORDERED: MELATONIN 3 MG TABLET PO PRN (17:00)
[2022-07-05 17:18] VITALS: BP 146/70
--- NOTE | 2022-07-05 18:15 | CONSULTATION REPORT ---
DATE OF SERVICE: 07/05/2022 REASON FOR CONSULTATION: Right intertrochanteric femur fracture. HISTORY OF PRESENT ILLNESS: The patient is a 76-year-old female with a history of atrial fibrillation, who fell at home. She landed on her right side. She was found to have an intertrochanteric femur fracture for which I was consulted. She denies antecedent pain. She denies head injuries. The patient lives independently. ALLERGIES: NO KNOWN ALLERGIES. MEDICATIONS: Amiodarone, Eliquis, atorvastatin, diltiazem, enalapril, levothyroxine, metoprolol, oxybutynin, vitamin E. REVIEW OF SYSTEMS: No recent chest pain, shortness of breath, no dysuria. PAST SURGERY: Bladder and breast. PHYSICAL EXAMINATION: GENERAL: The patient is well-developed, well-nourished, in no acute distress. HEENT: Normocephalic, atraumatic. Pupils are equal, round, reactive to light. Oropharynx is clear. NECK: Supple, no lymphadenopathy. LUNGS: Clear to auscultation bilaterally. HEART: Regular rate and rhythm. ABDOMEN: Soft, nontender, nondistended. Her right lower extremity shortened and externally rotated. She has symmetric pulses. She has intact dorsiflexion and plantarflexion of toes. Radiographs reveal displaced right intertrochanteric femur fracture. IMPRESSION: Displaced right intertrochanteric femur fracture. PLAN: Right hip intramedullary nail. The risks, benefits, options, ramifications and recovery were discussed with the patient and her daughter. They understand and wished to proceed. Job ID: [id number] DocumentID: [id number] Dictated Date: 07/05/2022 15:30:45 Marketing Communications Manager Date: 07/05/2022 18:14:14 Dictated By: CALDERON MCCALL MD
[2022-07-05] MEDS: NS W/KCL 20 MEQ/L 1,000 ML IV SCH (18:52)
[2022-07-05 20:00] VITALS: BP 126/64
[2022-07-05 20:06] VITALS: BP 100/53
[2022-07-05] MEDS ORDERED: RT-ALBUTEROL SULF 2.5 MG/3 ML PRE-MIX VIAL INH PRN (20:30)
[2022-07-05] MEDS: DOCUSATE SODIUM 100 MG (COLACE) CAP PO SCH (21:00)
[2022-07-05] MEDS: SENNOSIDES 8.6 MG (SENOKOT) TAB PO SCH (23:43)
[2022-07-06] VITALS (11 sets, daily range): BP systolic 109–163; BP diastolic 58–97
[2022-07-06] MEDS: ACETAMINOPHEN 325 MG TABLET PO PRN ×2 (02:11→10:38)
[2022-07-06 06:25] LABS: BASOPHILS % (AUTO) 0 % (0-10); EOSINOPHILS # (AUTO) 0.1 10^3/uL (0.0-0.3); EOSINOPHILS % (AUTO) 1 % (0-10); HEMATOCRIT 38 % (35-52); HEMOGLOBIN 13.3 g/dL (11.5-16.0); LYMPHOCYTES # (AUTO) 2.3 10^3/uL (1.0-4.0); LYMPHOCYTES % (AUTO) 19 % (12-44); MEAN CORPUSCULAR HEMOGLOBIN 32 pg (25-34); MEAN CORPUSCULAR HGB CONC 35 g/dL (32-36); MEAN CORPUSCULAR VOLUME 92 fL (80-99); MEAN PLATELET VOLUME 9.6 fL (9.0-12.2); MONOCYTES # (AUTO) 1.3 10^3/uL (0.0-1.0); MONOCYTES % (AUTO) 11 % (0-12); NEUTROPHILS # (AUTO) 8.6 10^3/uL (1.8-7.8); NEUTROPHILS % (AUTO) 69 % (42-75); PLATELET COUNT 226 10^3/uL (130-400); WHITE BLOOD COUNT 12.4 10^3/uL (4.3-11.0)
[2022-07-06 06:44] LABS: ALBUMIN 3.4 GM/DL (3.2-4.5); POTASSIUM 3.5 MMOL/L (3.6-5.0)
[2022-07-06 06:45] LABS: CALCIUM 8.7 MG/DL (8.5-10.1)
[2022-07-06 06:48] LABS: BILIRUBIN,TOTAL 1.9 MG/DL (0.1-1.0)
[2022-07-06 06:50] LABS: CREATININE SERUM 0.74 MG/DL (0.60-1.30)
[2022-07-06] MEDS: NS W/KCL 20 MEQ/L 1,000 ML IV SCH ×2 (06:51→22:54)
[2022-07-06] MEDS: DOCUSATE SODIUM 100 MG (COLACE) CAP PO SCH ×2 (09:27→20:35)
[2022-07-06] MEDS: SENNOSIDES 8.6 MG (SENOKOT) TAB PO SCH ×2 (09:27→20:35)
--- NOTE | 2022-07-06 10:30 | Consultation-Cardiology ---
HPI-Cardiology Cardiology Consultation Date of Consultation 07/06/22 Date of Admission Time Seen by Provider: 10:27 Indication: Atrial fibrillation HPI 76-year-old lady with history of atrial fibrillation, valvular heart disease. Patient sustained a nonsyncopal fall resulted in hip fracture. She denied any syncope, no chest pain or shortness of breath. No palpitation, patient is maintained on Xarelto. I was called for preoperative cardiac evaluation Home Medications & Allergies Allergies: Coded Allergies: No Known Allergies (Verified Allergy, Unknown, 07/05/22) Home Medication List Reviewed: Yes BZY-Fozvns-Jurrtz Hx Patient Social History Marital Status: , Living Status: Lives at home by herself Employed/Student: retired Smoking Status: Former Smoker Have you traveled recently?: No Alcohol Use?: No Past Medical History Discussed below Family Medical History Significant Family History: Heart Disease (father, son ), Cancer (mother's side (colon, skin)), Other Conditions/Hx (degenerative disc - daughter) Review of Systems-General Review of Systems Constitutional: no symptoms reported EENTM: no symptoms reported Respiratory: no symptoms reported Cardiovascular: see HPI; No chest pain, No edema, No Hx of Intervention, No palpitations, No syncope, No vascular heart diseas, No other Gastrointestinal: no symptoms reported Genitourinary: no symptoms reported : No Musculoskeletal: joint pain (right hip pain) Skin: no symptoms reported Psychiatric/Neurological: No Symptoms Reported All Other Systems Reviewed Negative Unless Noted: Yes Reviewed Test Results Reviewed Test Results Lab Laboratory Tests Test 07/05/22 13:15 07/06/22 06:03 Range/Units White Blood Count 11.4 H 12.4 H 4.3-11.0 10^3/uL Red Blood Count 4.53 4.17 3.80-5.11 10^6/uL Hemoglobin 14.2 13.3 11.5-16.0 g/dL Hematocrit 42 38 35-52 % Mean Corpuscular Volume 92 92 80-99 fL Mean Corpuscular Hemoglobin 31 32 25-34 pg Mean Corpuscular Hemoglobin Concent 34 35 32-36 g/dL Red Cell Distribution Width 15.9 H 15.8 H 10.0-14.5 % Platelet Count 270 226 130-400 10^3/uL Mean Platelet Volume 9.4 9.6 9.0-12.2 fL Immature Granulocyte % (Auto) 1 0 % Neutrophils (%) (Auto) 70 69 42-75 % Lymphocytes (%) (Auto) 21 19 12-44 % Monocytes (%) (Auto) 7 11 0-12 % Eosinophils (%) (Auto) 1 1 0-10 % Basophils (%) (Auto) 0 0 0-10 % Neutrophils # (Auto) 8.0 H 8.6 H 1.8-7.8 10^3/uL Lymphocytes # (Auto) 2.4 2.3 1.0-4.0 10^3/uL Monocytes # (Auto) 0.8 1.3 H 0.0-1.0 10^3/uL Eosinophils # (Auto) 0.1 0.1 0.0-0.3 10^3/uL Basophils # (Auto) 0.1 0.0 0.0-0.1 10^3/uL Immature Granulocyte # (Auto) 0.1 0.0 0.0-0.1 10^3/uL Prothrombin Time 23.3 H 12.2-14.7 SEC INR Comment 2.0 H 0.8-1.4 Activated Partial Thromboplast Time 44 H 24-35 SEC Sodium Level 126 L 131 L 135-145 MMOL/L Potassium Level 3.5 L 3.5 L 3.6-5.0 MMOL/L Chloride Level 90 L 96 L 98-107 MMOL/L Carbon Dioxide Level 25 25 21-32 MMOL/L Anion Gap 11 10 5-14 MMOL/L Blood Urea Nitrogen 15 10 7-18 MG/DL Creatinine 1.15 0.74 0.60-1.30 MG/DL Estimat Glomerular Filtration Rate 49 84 BUN/Creatinine Ratio 13 14 Glucose Level 163 H 92 70-105 MG/DL Calcium Level 8.9 8.7 8.5-10.1 MG/DL Corrected Calcium 9.1 9.2 8.5-10.1 MG/DL Total Bilirubin 1.7 H 1.9 H 0.1-1.0 MG/DL Aspartate Amino Transf (AST/SGOT) 29 22 5-34 U/L Alanine Aminotransferase (ALT/SGPT) 18 15 0-55 U/L Alkaline Phosphatase 58 57 40-136 U/L Total Protein 6.7 6.0 L 6.4-8.2 GM/DL Albumin 3.8 3.4 3.2-4.5 GM/DL Physical Exam Physical Exam Vital Signs Vital Signs - First Documented 07/05/22 07/05/22 07/05/22 07/06/22 12:59 17:18 20:06 08:01 Temp 36.3 Pulse 76 Resp 18 B/P (MAP) 100/53 (69) Pulse Ox 96 O2 Delivery Room Air O2 Flow Rate 0.00 FiO2 21 Capillary Refill : Height, Weight, BMI Height: 5'2.00" Weight: 189lbs. 8.5oz. 85.537625zg; 34.02 BMI Method: General Appearance: No Apparent Distress, WD/WN, Obese HEENT: PERRL/EOMI, Normal ENT Inspection Neck: Full Range of Motion, Normal Inspection, Non Tender Respiratory: Chest Non Tender, Lungs Clear, Normal Breath Sounds, No Accessory Muscle Use, No Respiratory Distress Cardiovascular: No Edema, No Gallop, No JVD, Normal Peripheral Pulses, Systolic Murmur, Irregularly Irregular Gastrointestinal: Normal Bowel Sounds, No Organomegaly, No Pulsatile Mass, Non Tender, Soft Rectal: Deferred Extremity: Normal Capillary Refill, Normal Inspection, Non Tender, No Pedal Edema, Other (RLE range of motion limited by pain) Neurologic/Psychiatric: Alert, Oriented x3, No Motor/Sensory Deficits, Normal Mood/Affect Skin: Normal Color, Warm/Dry A/P-Cardiology Admission Diagnosis Hip fracture Permanent atrial fibrillation Severe mitral regurgitation Hypertension Hyperlipidemia Assessment/Plan Hip fracture, patient is scheduled for possible surgery today. Permanent atrial fibrillation Patient had multiple cardioversions in the past that has failed. She was seen by Dr. Burton, had multiple attempts to treat with antiarrhythmic medication without success. Decision was to accepted as a permanent atrial fibrillation maintained on oral anticoagulation. Patient has been stable and tolerating atrial fibrillation well [id number] score 3, maintained on Xarelto Severe mitral regurgitation with flow reversal in the pulmonic vein, moderate to severe tricuspid regurgitation, normal systolic function ejection fraction 60%. Had FAREED done in June 2020. Hypertension, controlled monitor blood pressure Hyperlipidemia, monitor lipids Mild bilateral carotid stenosis. Hypothyroidism, has history of thyroid nodule followed by Dr. Toledo History of breast cancer with lumpectomy 1997. Has been in remission Preoperative cardiac evaluation, patient is considered at intermediate risk for perioperative cardiovascular complications, decision regarding the surgery, risk versus benefit is deferred to the surgeon. Clinical Quality Measures DVT/VTE Risk/Contraindication: Contraindications-Pharm: Other *list below* Other: surgery CARLOS FORBES MD Jul 06, 2022 10:30
[2022-07-06] MEDS ORDERED: FURO40TA4 PO (12:04)
[2022-07-06] MEDS ORDERED: LEVO137T2 PO (12:04)
[2022-07-06] MEDS ORDERED: DILT240C91 PO (12:04)
[2022-07-06] MEDS ORDERED: POTA99TA18 PO (12:04)
[2022-07-06] MEDS ORDERED: FERR-84 PO (12:04)
[2022-07-06] MEDS ORDERED: HYDR25TA4 PO (12:04)
[2022-07-06] MEDS ORDERED: ATOR10TA66 PO (12:04)
[2022-07-06] MEDS ORDERED: VITA400C64 PO (12:04)
[2022-07-06] MEDS ORDERED: RIVA20TA PO (12:04)
[2022-07-06] MEDS ORDERED: LOSA50TA63 PO (12:04)
[2022-07-06] MEDS ORDERED: CHOL200059 PO (12:04)
[2022-07-06] MEDS ORDERED: BUPIVACAINE 0.25% 30 ML (SENSORCAINE) VIAL ONE (12:06)
--- NOTE | 2022-07-06 12:36 | Progress Note - Hospitalist ---
STEVIE STEWART 07/06/22 1236: Subjective HPI/CC On Admission Date Seen by Provider: Jul 06, 2022 Time Seen by Provider: 11:50 CC: mechanical fall at home onto right side/hip with severe pain immediately after HPI: The patient was walking out of her house today around noon, and noticed that her right leg locked up which caused her to trip and fall. She fell onto her right side on her hip and possibly on her shoulder. She denies hitting her head or losing consciousness. She states she had immediate right sided hip pain that is severe and worsened with any sort of movement. She states the pain gets better with rest. She denies any shoulder pain at this time. She states she takes blood thinners, Xarelto, which she last took last night (07/04). The patient is uncertain of the names of all her medications that she typically takes but told her daughter where she can find a list if she can run home. Additionally, the patient is worried about being mobile enough to use the bathroom and being limited by significant pain. She states her last bowel movement was this morning and that she last urinated around 11am. Otherwise she has no questions or concerns at this time. Subjective/Events-last exam Doing well Surgery planned for this afternoon Slept well No questions or concerns Review of Systems Musculoskeletal: leg pain (hip pain but controlled) Objective Exam Vital Signs Vital Signs Date Time Temp Pulse Resp B/P (MAP) Pulse Ox O2 Delivery O2 Flow Rate FiO2 07/06/22 12:07 37.1 83 18 137/88 (104) 93 Room Air 07/06/22 08:16 21 07/06/22 08:01 0.00 Capillary Refill : General Appearance: No Apparent Distress, WD/WN, Obese HEENT: PERRL/EOMI, Normal ENT Inspection Neck: Full Range of Motion, Normal Inspection, Non Tender, Supple Respiratory: Chest Non Tender, Lungs Clear, Normal Breath Sounds, No Accessory Muscle Use, No Respiratory Distress Cardiovascular: Regular Rate, Rhythm, No Edema, No Gallop, No JVD, No Murmur, Normal Peripheral Pulses Gastrointestinal: Normal Bowel Sounds, No Organomegaly, No Pulsatile Mass, Non Tender, Soft Rectal: Deferred Extremity: Normal Capillary Refill, Normal Inspection, No Pedal Edema Neurologic/Psychiatric: Alert, Oriented x3, No Motor/Sensory Deficits, Normal Mood/Affect Skin: Normal Color, Warm/Dry Results/Procedures Lab Laboratory Tests 07/05/22 13:15 07/06/22 06:03 Patient resulted labs reviewed. Imaging: Reviewed Imaging Films, Reviewed Imaging Report Assessment/Plan Assessment and Plan Assess & Plan/Chief Complaint Assessment: Ms. Eva Miller is a 76 y/o F with PMH of Afib on Xarelto, hypothyroidism, previous stroke in 2003, hx of breast cancer who presented to the ED on 07/05/22 after sustaining a mechanical fall at home on her right hip and found to have a R comminuted, impacted intertrochanteric proximal femur fracture. Plan: 1. R femur fracture - Hip Xray Prelim read: R comminuted, impacted intertrochanteric proximal femur fracture - Last took Xarelto on 07/04/22 PM - WBC 12.4, likely due to stress > General Surgery consulted and plan to take to the OR this afternoon, planning for cefazolin lance-operatively > NPO currently > Cont pain control > Cont mitchell placement due to immobility > Holding Xarelto 2. Afib on Xarelto - last took Xarelto 07/04/22 PM - uncertain home meds, but pt believes she takes Metoprolol but uncertain of dose - follow up with Dr. Barr. > Cardiology consulted > Hold Xarelto until post-op > Can plan to restart home meds post-op 3. Hyponatremia - Na on presentation at 126, now 131 - pt reports limited salt intake > Consider NaCl tablets 4. Hypochloremia - Cl on presentation at 90, now 96 > Consider NaCl tablets 5. Hypokalemia - K on presentation at 3.5, now 3.5 > Consider KCl 10mEq replacement 6. Hypothryoidism - pt follows with outside provider > Cont Levothyroxine Dispo: inpatient with plans for OR today Diet: NPO for surgery Code: Full code Clinical Quality Measures DVT/VTE Risk/Contraindication: Contraindications-Pharm: Other *list below* Other: surgery SORAYA CASTRO DO 07/07/22 0501: Assessment/Plan Assessment and Plan Assess & Plan/Chief Complaint Set for repair of hip fracture today Supervisory-Addendum Brief Verification & Attestation Participated in pt care: history, MDM, physical Personally performed: exam, history, MDM, supervision of care Care discussed with: Medical Student Procedures: n/a Results interpretation: Verified all documentation Verification and Attestation of Medical Student E/M Service A medical student performed and documented this service in my presence. I reviewed and verified all information documented by the medical student and made modifications to such information, when appropriate. I personally performed the physical exam and medical decision making. Soraya Castro, Jul 07, 2022,05:01 STEVIE STEWART Jul 06, 2022 12:36 SORAYA CASTRO DO Jul 07, 2022 05:01
[2022-07-06] MEDS ORDERED: LIDOCAINE PF 2% 5 ML (XYLOCAINE) VIAL ONE (13:29)
[2022-07-06] MEDS ORDERED: proPOfol 200 MG/20 ML (DIPRIVAN) VIAL IV ONE (13:29)
[2022-07-06] MEDS ORDERED: fentaNYL INJ 100 MCG/2 ML AMP ONE (13:29)
[2022-07-06] MEDS ORDERED: ONDANSETRON 4 MG/2 ML (SDV) Z0FRAN ONE (13:29)
[2022-07-06] MEDS: LACTATED RINGERS 1,000 ML IV ONE ×2 (13:40→14:44)
[2022-07-06] MEDS ORDERED: ONDANSETRON 4 MG/2 ML (SDV) Z0FRAN IVP PRN ×3 (13:45→15:30)
[2022-07-06] MEDS ORDERED: NS (IVPB) 100 ML ONE (13:59)
[2022-07-06] MEDS ORDERED: ceFAZolin INJECTION 2,000 MG ONE (13:59)
[2022-07-06] MEDS ORDERED: morphine INJ 10 MG/ML 1ML (SYR OR VIAL) IVP NR ×2 (14:00→15:30)
[2022-07-06] MEDS ORDERED: HYDROmorphone 2 MG/ML VIAL (DILAUDID) IV NR ×2 (14:00→15:30)
[2022-07-06] MEDS ORDERED: ceFAZolin INJECTION 2,000 MG in NS (IVPB) 50 ML IV NR (14:00)
--- NOTE | 2022-07-06 14:01 | Progress Note-Post Operative ---
Post-Operative Progess Note Surgeon (s)/Business Associate (s) Surgeon CALDERON MCCALL MD Business Associate: Hoang Quintero Pre-Operative Diagnosis right intertrochanteric femur fracture Post-Operative Diagnosis right intertrochanteric femur fracture Procedure & Operative Findings Date of Procedure 07/06/22 Procedure Performed/Findings right hip intramedullary nail Anesthesia Type GETA Estimated Blood Loss Estimated blood loss (mL): 200ml Specimens/Packing Specimens Removed none Packing: none CALDERON MCCALL MD Jul 06, 2022 14:01
--- NOTE | 2022-07-06 14:01 | Progress Note-Pre Operative ---
Pre-Operative Progress Note Date of Available H&P: Jul 06, 2022 Date H&P Reviewed: Jul 06, 2022 Time H&P Reviewed: 14:00 Changes from last HP none Pre-Operative Diagnosis: right intertrochanteric femur fracture CALDERON MCCALL MD Jul 06, 2022 14:00
[2022-07-06] MEDS ORDERED: ESMOLOL 100 MG/10 ML (BREVIBLOC) VIAL ONE (14:24)
[2022-07-06] MEDS ORDERED: LACTATED RINGERS 1,000 ML IV ONE (14:45)
[2022-07-06] MEDS ORDERED: morphine INJ 4 MG/ML 1 ML (VIAL/SYRINGE) IVP PRN (15:15)
--- NOTE | 2022-07-06 15:17 | Anesthesia-General Post-Op ---
General Patient Condition Mental Status/LOC: Same as Preop Cardiovascular: Satisfactory Nausea/Vomiting: Absent Respiratory: Satisfactory Pain: Controlled Complications: Absent Post Op Complications Complications None Follow Up Care/Instructions Patient Instructions None needed. Anesthesia/Patient Condition Patient Condition Patient is doing well, no complaints, stable vital signs, no apparent adverse anesthesia problems. No complications reported per nursing. CHRISS CRAIG CRNA Jul 06, 2022 15:17
[2022-07-06] MEDS ORDERED: PROMETHAZINE INJ 25 MG/ML (PHENERGAN) AMP IVP NR (15:30)
[2022-07-06] MEDS: oxyCODONE/APAP 5/325MG (PERCOCET 5) TABLET PO PRN ×2 (16:37→22:54)
--- NOTE | 2022-07-06 17:15 | Diagnostic Imaging Report ---
INDICATION: RT IM HIP PINNING COMPARISON: 07/05/2022. TECHNIQUE: Two intraoperative fluoroscopic images of the right hip. FLUOROSCOPIC TIME: 59.3 seconds FINDINGS/ IMPRESSION: Intraoperative fluoroscopic images were obtained during open reduction and internal fixation of the proximal right femur. Dictated by: Dictated on workstation # [id number]
[2022-07-06] MEDS ORDERED: OXYBUTYNIN (DITROPAN) 5 MG TAB PO PRN (17:30)
[2022-07-06] MEDS ORDERED: NON-FORMULARY MEDICATION 1 EA EA (Potassium Gluconate 99 MG) PO PRN (17:30)
[2022-07-06] MEDS: FERROUS SULF 325 MG (IRON) TAB PO SCH (18:33)
[2022-07-06] MEDS: meTOproloL SUCCINATE 50 MG (TOPROL XL) TAB PO SCH (20:35)
[2022-07-06] MEDS: VITAMIN D3 25 MCG (1,000 UNITS) TABLET PO SCH (20:35)
[2022-07-06] MEDS ORDERED: VITAMIN E ACETATE PO SCH (21:00)
[2022-07-07] VITALS (7 sets, daily range): BP systolic 99–137; BP diastolic 62–87
--- NOTE | 2022-07-07 00:40 | OPERATIVE REPORT ---
DATE OF SERVICE: 07/06/2022 PREOPERATIVE DIAGNOSIS: Closed displaced right intertrochanteric femur fracture. POSTOPERATIVE DIAGNOSIS: Closed displaced right intertrochanteric femur fracture. PROCEDURE: Right hip intramedullary nail. SURGEON: Patrick Mccall MD MATHEMATICIAN: Hoang Quintero, who assisted throughout the procedure and closed the incisions. ANESTHESIA: General endotracheal by Dr. Amezquita. ESTIMATED BLOOD LOSS: 200 mL. DRAINS: None. COMPLICATIONS: None. POSTOPERATIVE PLAN: Weightbearing as tolerated, right lower extremity. MATERIALS: Synthes short intramedullary nail, 11 mm in diameter with a 90 mm screw and a 38 mm distal locking screw. STATEMENT OF MEDICAL NECESSITY: The patient is a 76-year-old female who fell at home yesterday and was found to have a closed displaced right intertrochanteric femur fracture. The patient was counseled regarding treatment options and elected to proceed with surgical intervention. DESCRIPTION OF PROCEDURE: After risks and benefits of procedure were discussed and questions were answered, an informed consent was signed and placed on chart, the operative site was confirmed in the preoperative holding area initialed by the surgeon. The patient was then transferred to the operating room and after adequate levels of general endotracheal anesthetic were obtained, a timeout was called, confirming the operative site. The patient was carefully placed on the fracture table. Gentle longitudinal traction was applied. Fluoroscopy in AP and lateral planes revealed anatomic reduction of the fracture. The right hip was then prepped and draped in the usual sterile fashion. An incision was made from the greater trochanter extending proximally. The iliotibial band was incised. The underlying soft tissues were dissected. The guidewire was passed under fluoroscopic visualization in the AP and lateral planes within good position. This was then overreamed with the proximal reamer. An 11 mm nail was placed with excellent fill obtained. Fluoroscopy in AP and lateral planes revealed well-placed hardware through a percutaneous incision. The guidewire was passed into the femoral head. Fluoroscopy in AP and lateral planes revealed well-placed guidewire. This was then overreamed through the lateral cortex and a 90 mm blade was placed with excellent location noted in the AP and lateral planes. This was then locked proximally through the same percutaneous incision distally. A distal locking screw was placed, 38 mm in length with excellent purchase. Fluoroscopy in the AP and lateral planes revealed anatomic reduction of the fracture with well-placed hardware. The wounds were copiously irrigated. The iliotibial band was closed with #1 Vicryl in esigov-wn-rqnda interrupted fashion. The subcutaneous layer was closed with 2-0 Vicryl in simple interrupted fashion. [place] were used on the skin. Incision was infiltrated with plain Marcaine. A soft dressing was applied, and the patient was transferred to the recovery room awake and in stable condition. Job ID: [id number] DocumentID: [id number] Dictated Date: 07/06/2022 15:12:03 Field Marketing Director Date: 07/07/2022 00:39:47 Dictated By: PATRICK MCCALL MD
--- NOTE | 2022-07-07 05:43 | Progress Note - Hospitalist ---
Subjective HPI/CC On Admission Date Seen by Provider: Jul 07, 2022 Time Seen by Provider: 11:00 Chief complaint: Right hip fracture HPI: This is a 76-year-old female clinic patient of [facility] who presents with right hip fracture. She tripped at home. Dr. Bell will perform repair. Subjective/Events-last exam Patient doing really well Pain is controlled Hep locking IV fluid Discontinuing the catheter will be per Ortho Family at the bedside Review of Systems Musculoskeletal: leg pain Objective Exam Vital Signs Vital Signs Date Time Temp Pulse Resp B/P (MAP) Pulse Ox O2 Delivery O2 Flow Rate FiO2 07/07/22 16:33 94 Room Air 0.00 07/07/22 16:02 36.5 78 20 111/62 (78) 07/06/22 08:16 21 Capillary Refill : General Appearance: No Apparent Distress, WD/WN, Chronically ill Respiratory: Lungs Clear, Normal Breath Sounds Cardiovascular: Regular Rate, Rhythm Neurologic/Psychiatric: Alert, Oriented x3, No Motor/Sensory Deficits, Normal Mood/Affect Results/Procedures Lab Laboratory Tests 07/07/22 05:28 Patient resulted labs reviewed. Imaging: Reviewed Imaging Films, Reviewed Imaging Report Assessment/Plan Assessment and Plan Assess & Plan/Chief Complaint Assessment: Assessment: Ms. Eva Miller is a 76 y/o F with PMH of Afib on Xarelto, hypothyroidism, previous stroke in 2003, hx of breast cancer who presented to the ED on 07/05/22 after sustaining a mechanical fall at home on her right hip and found to have a R comminuted, impacted intertrochanteric proximal femur fracture. Plan: 1. R femur fracture 2. Afib on Xarelto 3. Hyponatremia 4. Hypochloremia 5. Hypokalemia 6. Hypothryoidism Plan: Hep-Lock IV fluid DC catheter tomorrow Monitor closely Diagnosis/Problems Diagnosis/Problems (1) Intertrochanteric fracture Status: Acute Qualifiers: Encounter type: initial encounter Fracture type: closed Fracture alignment: displaced Laterality: right Qualified Codes: S72.141A - Displaced intertrochanteric fracture of right femur, initial encounter for closed fracture (2) Afib Qualifiers: Atrial fibrillation type: permanent Qualified Codes: I48.21 - Permanent atrial fibrillation Clinical Quality Measures DVT/VTE Risk/Contraindication: Contraindications-Pharm: Other *list below* Other: surgery VIKRAM CASTRO DO Jul 07, 2022 05:43
[2022-07-07 05:44] LABS: BASOPHILS % (AUTO) 0 % (0-10); EOSINOPHILS % (AUTO) 0 % (0-10); HEMATOCRIT 33 % (35-52); HEMOGLOBIN 10.9 g/dL (11.5-16.0); LYMPHOCYTES # (AUTO) 1.1 10^3/uL (1.0-4.0); LYMPHOCYTES % (AUTO) 8 % (12-44); MEAN CORPUSCULAR HEMOGLOBIN 32 pg (25-34); MEAN CORPUSCULAR HGB CONC 33 g/dL (32-36); MEAN CORPUSCULAR VOLUME 95 fL (80-99); MEAN PLATELET VOLUME 9.8 fL (9.0-12.2); MONOCYTES # (AUTO) 0.5 10^3/uL (0.0-1.0); MONOCYTES % (AUTO) 4 % (0-12); NEUTROPHILS # (AUTO) 12.5 10^3/uL (1.8-7.8); NEUTROPHILS % (AUTO) 88 % (42-75); PLATELET COUNT 204 10^3/uL (130-400); WHITE BLOOD COUNT 14.1 10^3/uL (4.3-11.0)
[2022-07-07] MEDS: LEVOTHYROXINE 25 MCG (LEVOTHROID) TAB PO SCH (06:10)
[2022-07-07] MEDS: LEVOTHYROXINE 112 MCG (LEVOTHROID) TAB PO SCH (06:10)
[2022-07-07 06:23] LABS: POTASSIUM 4.3 MMOL/L (3.6-5.0)
[2022-07-07 06:24] LABS: CALCIUM 8.4 MG/DL (8.5-10.1)
[2022-07-07 06:25] LABS: TOTAL PROTEIN 5.9 GM/DL (6.4-8.2)
[2022-07-07 06:26] LABS: ANISOCYTOSIS SLIGHT; BAND NEUTROPHILS 3 %; ELLIPT/OVALOCYTES SLIGHT; LYMPHOCYTES % (MANUAL) 7 %; MONOCYTES % (MANUAL) 3 %; NEUTROPHILS % (MANUAL) 87 %; PLATELET ESTIMATE NORMAL; POIKILOCYTOSIS SLIGHT
[2022-07-07 06:27] LABS: BILIRUBIN,TOTAL 1.1 MG/DL (0.1-1.0)
[2022-07-07 06:29] LABS: CREATININE SERUM 0.75 MG/DL (0.60-1.30)
[2022-07-07] MEDS: oxyCODONE/APAP 5/325MG (PERCOCET 5) TABLET PO PRN ×2 (08:18→19:37)
[2022-07-07] MEDS: DOCUSATE SODIUM 100 MG (COLACE) CAP PO SCH ×2 (08:18→20:34)
[2022-07-07] MEDS: SENNOSIDES 8.6 MG (SENOKOT) TAB PO SCH ×2 (08:18→20:37)
[2022-07-07] MEDS: AtorvaSTATin TABLET 10 MG TABLET PO SCH (08:18)
[2022-07-07] MEDS: LOSARTAN 50 MG (COZAAR) TAB PO SCH (08:18)
[2022-07-07] MEDS: ENOXAPARIN 40 MG/0.4 ML (LOVENOX) SYR SC SCH (08:19)
--- NOTE | 2022-07-07 08:48 | Physical Therapy Evaluation ---
PT Evaluation-General Medical Diagnosis Admission Date Jul 05, 2022 at 14:43 Medical Diagnosis: Right femur fracture with ORIF Onset Date: Jul 05, 2022 Therapy Diagnosis Therapy Diagnosis: Gait deficit, strength deficit, right hip pain Height/Weight Height (Feet): 5 Height (Inches): 2.00 Weight (Pounds): 189 Weight (Ounces): 8.5 Precautions Precautions/Isolations: Fall Prevention, Standard Precautions Weight Bear Status Right Lower Extremity: Right Weight Bearing/Tolerated Left Lower Extremity: Left Full Weight Bearing Referral Physician: Dr. Bell Reason for Referral: Evaluation/Treatment Medical History Reviewed History: Yes Social History Home: [facility] Current Living Status: Alone Entry Into Home: Stairs With Railing PT Steps Into Home: 5 PT Steps Inside Home: 15 Prior Prior Level of Function SCALE: Activities may be completed with or without assistive devices. 1-Oohlizytoq-pquibbb completes the activity by him/herself with no assistance from a helper. 5-Set-up or Clean-up Assistance-helper sets up or cleans up; patient completes activity. [place] assists only prior to or following the activity. 4-Supervision or Touching Assistance-helper provides verbal cues and/or touching/steadying and/or contact guard assistance as patient completes activity. Assistance may be provided throughout the activity or intermittently. 3-Partial/Moderate Assistance-helper does LESS THAN HALF the effort. [place] lifts, holds or supports trunk or limbs, but provides less than half the effort. 2-Substantial/Maximal Assistance-helper does MORE THAN HALF the effort. [place] lifts or holds trunk or limbs and provides more than half the effort. 7-Qeznpfqhn-cuixfo does ALL the effort. Patient does none of the effort to complete the activity. Or, the assistance of 2 or more helpers is required for the patient to complete the activity. If activity was not attempted, code reason: 7-Patient Refused. 9-Not Applicable-not attempted and the patient did not perform the activity before the current illness, exacerbation or injury. 10-Not Attempted due to Environmental Limitations-(lack of equipment, weather restraints, etc.). 88-Not Attempted due to Medical Conditions or Safety Concerns. Bed Mobility: 6 Transfers (B,C,W/C): 6 Gait: 6 Stairs: 6 Indoor Mobility (Ambulation): Independent Stairs: Independent Prior Devices Use: None Has old FWW and cane at home. PT Evaluation-Current Subjective Patient lying supine in bed upon PT arrival, agreeable to treatment. Rates pain at 3/10 in right hip. Objective Patient Orientation: Person, Place, Time, Situation Attachments: Kim Catheter, IV ROM/Strength ROM Lower Extremities right hip limited all planes due to pain and recent surgery. Left LE all planes WFLs Strength Lower Extremities Right hip N/A, Right knee flexion and extension 3/5, Ankle 3+/5 all planes Left LE 4/5 all planes. Sensory Vision: Functional Hearing: Functional Sensation Right Lower Extremit: Intact Sensation Left Lower Extremity: Intact Transfers Roll Left to Right (QC): 3 Sit to Lying (QC): 3 Lying to Sitting/Side of Bed(Q: 3 Sit to Stand (QC): 3 Chair/She-dt-Lzhci Xfer(QC): 3 Mod A for all bed mobility and sit to stand. Gait Does the Patient Walk?: Yes Mode of Locomotion: Walk Anticipated Mode of Locomotion: Walk Walk 10 feet (QC): 88 Distance: 3 feet Gait Assistive Device: FWW Balance Sitting Static: Fair Sitting Dynamic: Fair Standing Static: Poor Standing Dynamic: Poor Assessment/Needs Patient tolerated treatment well. Requires mod A for all bed mobility and transfers. Patient is able to ambulate 3 feet with FWW, with min A and verbal cues for safety, progression of FWW and stepping. Patient in chair post treatment with all needs met, nursing notified, call light in hand and daughter in the room. Rehab Potential: Fair Equipment Needs FWW, W/C possibly PT Lumber Bearer Goals Lumber Bearer Goals PT Lumber Bearer Goals Time Frame: Jul 14, 2022 Roll Left & Right (QC): 4 Sit to Lying (QC): 4 Lying-Sitting on Side/Bed(QC): 4 Sit to Stand (QC): 4 Chair/Dvd-kx-Bpvtx Xfer(QC): 4 Toilet Transfer (QC): 4 Car Transfer (QC): 4 Does the Patient Walk: Yes Walk 10 feet (QC): 4 Walk 50ft with 2 Turns (QC): 3 Walk 150 ft (QC): 3 1 Step (curb) (QC): 3 4 Steps (QC): 3 12 Steps (QC): 3 PT Plan Problem List Problem List: Activity Tolerance, Functional Strength, Safety, Balance, Gait, Transfer, Bed Mobility, ROM Treatment/Plan Treatment Plan: Continue Plan of Care Treatment Plan: Bed Mobility, Education, Functional Activity Chriss, Functional Strength, Group Therapy, Gait, Safety, Therapeutic Exercise, Transfers Treatment Duration: Aug 11, 2022 Frequency: 11 times per week Estimated Hrs Per Day: .25 hour per day Patient and/or Family Agrees t: Yes Safety Risks/Education Patient Education: Gait Training, Transfer Techniques Teaching Recipient: Patient, Family Teaching Methods: Demonstration, Discussion Response to Teaching: Verbalize Understanding, Return Demonstration Time/GCodes Time In: 805 Time Out: 845 Total Billed Treatment Time: 40 Total Billed Treatment Visit, Vicenta GILBERT (2) RUBI AKERS PT Jul 07, 2022 08:48
--- NOTE | 2022-07-07 10:15 | Progress Note ---
Standard Progress Note Progress Notes/Assess & Plan Date Seen by a Provider: Jul 07, 2022 Time Seen by a Provider: 10:13 Progress/Assessment & Plan no complaints Vital Signs Date Time Temp Pulse Resp B/P (MAP) Pulse Ox O2 Delivery O2 Flow Rate FiO2 07/07/22 08:21 36.7 79 18 129/87 (101) 91 Room Air 07/07/22 07:00 94 07/07/22 03:53 36.0 67 16 115/63 (80) 95 Room Air 07/07/22 01:00 94 07/07/22 00:00 36.2 101 16 137/80 (99) 94 Room Air 07/06/22 20:30 36.9 99 18 133/60 (84) 97 Nasal Cannula 1.00 07/06/22 20:30 97 Nasal Cannula 1.00 07/06/22 19:00 121 07/06/22 15:54 Room Air 07/06/22 15:50 36.3 14 151/84 (106) 93 Room Air 07/06/22 15:40 OxyMask 2.00 07/06/22 15:40 14 163/95 (117) 92 Room Air 07/06/22 15:30 14 153/97 (115) 99 OxyMask 2.00 07/06/22 15:25 OxyMask 4.00 07/06/22 15:20 14 135/74 (94) 100 OxyMask 4.00 07/06/22 15:10 36.6 16 109/73 (85) 99 OxyMask 6.00 07/06/22 15:10 OxyMask 6.00 07/06/22 13:00 103 07/06/22 12:07 37.1 83 18 137/88 (104) 93 Room Air I & O 07/07/22 06:59 Intake Total 610 ml Output Total 1380 ml Balance -770 ml Laboratory Tests Test 07/07/22 05:28 Range/Units White Blood Count 14.1 H 4.3-11.0 10^3/uL Red Blood Count 3.45 L 3.80-5.11 10^6/uL Hemoglobin 10.9 L 11.5-16.0 g/dL Hematocrit 33 L 35-52 % Mean Corpuscular Volume 95 80-99 fL Mean Corpuscular Hemoglobin 32 25-34 pg Mean Corpuscular Hemoglobin Concent 33 32-36 g/dL Red Cell Distribution Width 15.9 H 10.0-14.5 % Platelet Count 204 130-400 10^3/uL Mean Platelet Volume 9.8 9.0-12.2 fL Immature Granulocyte % (Auto) 1 % Neutrophils (%) (Auto) 88 H 42-75 % Lymphocytes (%) (Auto) 8 L 12-44 % Monocytes (%) (Auto) 4 0-12 % Eosinophils (%) (Auto) 0 0-10 % Basophils (%) (Auto) 0 0-10 % Neutrophils # (Auto) 12.5 H 1.8-7.8 10^3/uL Lymphocytes # (Auto) 1.1 1.0-4.0 10^3/uL Monocytes # (Auto) 0.5 0.0-1.0 10^3/uL Eosinophils # (Auto) 0.0 0.0-0.3 10^3/uL Basophils # (Auto) 0.0 0.0-0.1 10^3/uL Immature Granulocyte # (Auto) 0.1 0.0-0.1 10^3/uL Neutrophils % (Manual) 87 % Lymphocytes % (Manual) 7 % Monocytes % (Manual) 3 % Band Neutrophils 3 % Platelet Estimate NORMAL Poikilocytosis SLIGHT Anisocytosis SLIGHT Macrocytosis SLIGHT Elliptocytes SLIGHT Sodium Level 131 L 135-145 MMOL/L Potassium Level 4.3 3.6-5.0 MMOL/L Chloride Level 100 98-107 MMOL/L Carbon Dioxide Level 24 21-32 MMOL/L Anion Gap 7 5-14 MMOL/L Blood Urea Nitrogen 11 7-18 MG/DL Creatinine 0.75 0.60-1.30 MG/DL Estimat Glomerular Filtration Rate 82 BUN/Creatinine Ratio 15 Glucose Level 162 H 70-105 MG/DL Calcium Level 8.4 L 8.5-10.1 MG/DL Corrected Calcium 9.2 8.5-10.1 MG/DL Total Bilirubin 1.1 H 0.1-1.0 MG/DL Aspartate Amino Transf (AST/SGOT) 22 5-34 U/L Alanine Aminotransferase (ALT/SGPT) 15 0-55 U/L Alkaline Phosphatase 43 40-136 U/L Total Protein 5.9 L 6.4-8.2 GM/DL Albumin 3.0 L 3.2-4.5 GM/DL RLE--dressing intact intact DF and PF of toes and ankle intact sensation to light touch throughout 2 plus DP pulse with brisk cap refill s/p R hip IM keyonna PT/OT CALDERON CALL MD Jul 07, 2022 10:15
[2022-07-07] MEDS: NS W/KCL 20 MEQ/L 1,000 ML IV SCH (11:17)
--- NOTE | 2022-07-07 13:10 | Progress Note - Cardiology ---
Cardiology SOAP Progress Note Objective: I&O/Vital Signs 07/07/22 07/07/22 07/07/22 07/07/22 03:53 07:00 08:00 08:21 Temp 36.0 36.7 Pulse 67 94 79 Resp 16 18 B/P (MAP) 115/63 (80) 129/87 (101) Pulse Ox 95 91 O2 Delivery Room Air Room Air Room Air 07/07/22 07/07/22 12:14 13:00 Temp 36.9 Pulse 80 91 Resp 18 B/P (MAP) 99/66 (77) Pulse Ox 92 O2 Delivery Room Air 07/07/22 00:00 Intake Total 460 ml Output Total 1030 ml Balance -570 ml Weight (Pounds): 189 Weight (Ounces): 8.5 Weight (Calculated Kilograms): 85.603036 Constitutional: AAO x 3, well-developed, well-nourished Respiratory: No accessory muscle use; other (good, bilateral air entry) Cardiovascular: irregularly irregular, S1 and S2, systolic murmur (2/6 MSM at card apex ) Gastrointestional: No tender; soft; No guarding, No rebound; audible bowel sounds Extremities: No clubbing, No cyanosis, No significant edema Neurologic/Psychiatric: other (moves all limbs equally) Skin: normal color, warm/dry; No rash on exposed areas, No ulcerations on exposed areas Results/Procedures: Labs Laboratory Tests 07/07/22 05:28: White Blood Count 14.1H, Red Blood Count 3.45L, Hemoglobin 10.9L, Hematocrit 33L , Mean Corpuscular Volume 95, Mean Corpuscular Hemoglobin 32, Mean Corpuscular Hemoglobin Concent 33, Red Cell Distribution Width 15.9H, Platelet Count 204, Mean Platelet Volume 9.8, Immature Granulocyte % (Auto) 1, Neutrophils (%) (Auto) 88H, Lymphocytes (%) (Auto) 8L, Monocytes (%) (Auto) 4, Eosinophils (%) (Auto) 0, Basophils (%) (Auto) 0, Neutrophils # (Auto) 12.5H, Lymphocytes # (Auto) 1.1, Monocytes # (Auto) 0.5, Eosinophils # (Auto) 0.0, Basophils # (Auto) 0.0, Immature Granulocyte # (Auto) 0.1, Neutrophils % (Manual) 87, Lymphocytes % (Manual) 7, Monocytes % (Manual) 3, Band Neutrophils 3, Platelet Estimate NORMAL, Poikilocytosis SLIGHT, Anisocytosis SLIGHT, Macrocytosis SLIGHT, Elliptocytes SLIGHT, Sodium Level 131L, Potassium Level 4.3, Chloride Level 100, Carbon Dioxide Level 24, Anion Gap 7, Blood Urea Nitrogen 11, Creatinine 0.75, Estimat Glomerular Filtration Rate 82, BUN/Creatinine Ratio 15, Glucose Level 162H, Calcium Level 8.4L, Corrected Calcium 9.2, Total Bilirubin 1.1H, Aspartate Amino Transf (AST/SGOT) 22, Alanine Aminotransferase (ALT/SGPT) 15, Alkaline Phosphatase 43, Total Protein 5.9L, Albumin 3.0L Microbiology 07/05/22 MRSA Screen - Final, Complete MRSA not isolated Laboratory Tests 07/05/22 13:15 07/06/22 06:03 07/07/22 05:28 A/P: Assessment: S/p R hip IM keyonna on 07/06/22 (for hip fracture) Permanent atrial fibrillation - Patient had multiple cardioversions in the past that has failed. She was seen by Dr. Burton, had multiple attempts to treat with antiarrhythmic medication without success. 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 Hypothyroidism, has history of thyroid nodule followed by Dr. Toledo History of breast cancer with lumpectomy 1997. Has been in remission Plan: * I interviewed and examined the patient and reviewed her records * We recommend resumption of full-dose Xarelto as soon as possible from a surgical standpoint. Currently on enoxaparin for DVT prophylaxis * Monitor labs CELINE OLVERA MD [facility] CCDS Jul 07, 2022 13:10
[2022-07-07] MEDS: VITAMIN D3 25 MCG (1,000 UNITS) TABLET PO SCH (20:34)
[2022-07-07] MEDS: meTOproloL SUCCINATE 50 MG (TOPROL XL) TAB PO SCH (20:34)
[2022-07-08 04:07] VITALS: BP 120/62
--- NOTE | 2022-07-08 05:32 | Progress Note - Hospitalist ---
Subjective HPI/CC On Admission Date Seen by Provider: Jul 08, 2022 Time Seen by Provider: 11:00 Chief complaint: Right hip fracture HPI: This is a 76-year-old female clinic patient of [facility] who presents with right hip fracture. She tripped at home. Dr. Bell will perform repair. Subjective/Events-last exam Patient doing very well Ambulated Kim catheter discontinued Lungs are clear Incentive spirometer counseled White count elevated at 18 but no source and no fever will check tomorrow Checked meds and labs Review of Systems Musculoskeletal: leg pain Objective Exam Vital Signs Vital Signs Date Time Temp Pulse Resp B/P (MAP) Pulse Ox O2 Delivery O2 Flow Rate FiO2 07/08/22 15:33 36.2 78 20 105/62 (76) 95 Room Air 07/07/22 16:33 0.00 07/06/22 08:16 21 Capillary Refill : General Appearance: No Apparent Distress, WD/WN, Chronically ill Respiratory: Lungs Clear, Normal Breath Sounds Cardiovascular: Regular Rate, Rhythm Neurologic/Psychiatric: Alert, Oriented x3 Results/Procedures Lab Laboratory Tests 07/08/22 05:41 Patient resulted labs reviewed. Imaging: Reviewed Imaging Films, Reviewed Imaging Report Assessment/Plan Assessment and Plan Assess & Plan/Chief Complaint Assessment: Assessment: Ms. Eva Miller is a 76 y/o F with PMH of Afib on Xarelto, hypothyroidism, previous stroke in 2003, hx of breast cancer who presented to the ED on 07/05/22 after sustaining a mechanical fall at home on her right hip and found to have a R comminuted, impacted intertrochanteric proximal femur fracture. Plan: 1. R femur fracture 2. Afib on Xarelto 3. Hyponatremia-stable 4. Hypochloremia 5. Hypokalemia replaced 6. Hypothryoidism 7. Leukocytosis of uncertain source will monitor only Plan: Hep-Lock IV fluid DC catheter today Monitor closely Diagnosis/Problems Diagnosis/Problems (1) Intertrochanteric fracture Status: Acute Qualifiers: Encounter type: initial encounter Fracture type: closed Fracture alignment: displaced Laterality: right Qualified Codes: S72.141A - Displaced intertrochanteric fracture of right femur, initial encounter for closed fracture (2) Afib Qualifiers: Atrial fibrillation type: permanent Qualified Codes: I48.21 - Permanent atrial fibrillation Clinical Quality Measures DVT/VTE Risk/Contraindication: Contraindications-Pharm: Other *list below* Other: surgery VIKRAM CASTRO DO Jul 08, 2022 05:32
[2022-07-08] MEDS: LEVOTHYROXINE 25 MCG (LEVOTHROID) TAB PO SCH (05:45)
[2022-07-08] MEDS: LEVOTHYROXINE 112 MCG (LEVOTHROID) TAB PO SCH (05:45)
[2022-07-08 05:51] LABS: BASOPHILS % (AUTO) 0 % (0-10); EOSINOPHILS % (AUTO) 0 % (0-10); HEMATOCRIT 30 % (35-52); HEMOGLOBIN 9.9 g/dL (11.5-16.0); LYMPHOCYTES % (AUTO) 11 % (12-44); MEAN CORPUSCULAR HEMOGLOBIN 31 pg (25-34); MEAN CORPUSCULAR HGB CONC 33 g/dL (32-36); MEAN CORPUSCULAR VOLUME 94 fL (80-99); MEAN PLATELET VOLUME 9.8 fL (9.0-12.2); MONOCYTES # (AUTO) 1.2 10^3/uL (0.0-1.0); MONOCYTES % (AUTO) 7 % (0-12); NEUTROPHILS # (AUTO) 15.2 10^3/uL (1.8-7.8); NEUTROPHILS % (AUTO) 82 % (42-75); PLATELET COUNT 215 10^3/uL (130-400); WHITE BLOOD COUNT 18.5 10^3/uL (4.3-11.0)
[2022-07-08 06:01] LABS: ALBUMIN 3.1 GM/DL (3.2-4.5)
[2022-07-08 06:02] LABS: POTASSIUM 4.4 MMOL/L (3.6-5.0)
[2022-07-08 06:03] LABS: CALCIUM 8.8 MG/DL (8.5-10.1)
[2022-07-08 06:04] LABS: TOTAL PROTEIN 5.6 GM/DL (6.4-8.2)
[2022-07-08 06:06] LABS: BILIRUBIN,TOTAL 0.9 MG/DL (0.1-1.0)
[2022-07-08 06:08] LABS: CREATININE SERUM 0.71 MG/DL (0.60-1.30)
--- NOTE | 2022-07-08 07:45 | Progress Note ---
Standard Progress Note Progress Notes/Assess & Plan Date Seen by a Provider: Jul 08, 2022 Time Seen by a Provider: 07:44 Progress/Assessment & Plan no complaints Vital Signs Date Time Temp Pulse Resp B/P (MAP) Pulse Ox O2 Delivery O2 Flow Rate FiO2 07/07/22 08:21 36.7 79 18 129/87 (101) 91 Room Air 07/07/22 07:00 94 07/07/22 03:53 36.0 67 16 115/63 (80) 95 Room Air 07/07/22 01:00 94 07/07/22 00:00 36.2 101 16 137/80 (99) 94 Room Air 07/06/22 20:30 36.9 99 18 133/60 (84) 97 Nasal Cannula 1.00 07/06/22 20:30 97 Nasal Cannula 1.00 07/06/22 19:00 121 07/06/22 15:54 Room Air 07/06/22 15:50 36.3 14 151/84 (106) 93 Room Air 07/06/22 15:40 OxyMask 2.00 07/06/22 15:40 14 163/95 (117) 92 Room Air 07/06/22 15:30 14 153/97 (115) 99 OxyMask 2.00 07/06/22 15:25 OxyMask 4.00 07/06/22 15:20 14 135/74 (94) 100 OxyMask 4.00 07/06/22 15:10 36.6 16 109/73 (85) 99 OxyMask 6.00 07/06/22 15:10 OxyMask 6.00 07/06/22 13:00 103 07/06/22 12:07 37.1 83 18 137/88 (104) 93 Room Air I & O 07/07/22 06:59 Intake Total 610 ml Output Total 1380 ml Balance -770 ml Laboratory Tests Test 07/07/22 05:28 Range/Units White Blood Count 14.1 H 4.3-11.0 10^3/uL Red Blood Count 3.45 L 3.80-5.11 10^6/uL Hemoglobin 10.9 L 11.5-16.0 g/dL Hematocrit 33 L 35-52 % Mean Corpuscular Volume 95 80-99 fL Mean Corpuscular Hemoglobin 32 25-34 pg Mean Corpuscular Hemoglobin Concent 33 32-36 g/dL Red Cell Distribution Width 15.9 H 10.0-14.5 % Platelet Count 204 130-400 10^3/uL Mean Platelet Volume 9.8 9.0-12.2 fL Immature Granulocyte % (Auto) 1 % Neutrophils (%) (Auto) 88 H 42-75 % Lymphocytes (%) (Auto) 8 L 12-44 % Monocytes (%) (Auto) 4 0-12 % Eosinophils (%) (Auto) 0 0-10 % Basophils (%) (Auto) 0 0-10 % Neutrophils # (Auto) 12.5 H 1.8-7.8 10^3/uL Lymphocytes # (Auto) 1.1 1.0-4.0 10^3/uL Monocytes # (Auto) 0.5 0.0-1.0 10^3/uL Eosinophils # (Auto) 0.0 0.0-0.3 10^3/uL Basophils # (Auto) 0.0 0.0-0.1 10^3/uL Immature Granulocyte # (Auto) 0.1 0.0-0.1 10^3/uL Neutrophils % (Manual) 87 % Lymphocytes % (Manual) 7 % Monocytes % (Manual) 3 % Band Neutrophils 3 % Platelet Estimate NORMAL Poikilocytosis SLIGHT Anisocytosis SLIGHT Macrocytosis SLIGHT Elliptocytes SLIGHT Sodium Level 131 L 135-145 MMOL/L Potassium Level 4.3 3.6-5.0 MMOL/L Chloride Level 100 98-107 MMOL/L Carbon Dioxide Level 24 21-32 MMOL/L Anion Gap 7 5-14 MMOL/L Blood Urea Nitrogen 11 7-18 MG/DL Creatinine 0.75 0.60-1.30 MG/DL Estimat Glomerular Filtration Rate 82 BUN/Creatinine Ratio 15 Glucose Level 162 H 70-105 MG/DL Calcium Level 8.4 L 8.5-10.1 MG/DL Corrected Calcium 9.2 8.5-10.1 MG/DL Total Bilirubin 1.1 H 0.1-1.0 MG/DL Aspartate Amino Transf (AST/SGOT) 22 5-34 U/L Alanine Aminotransferase (ALT/SGPT) 15 0-55 U/L Alkaline Phosphatase 43 40-136 U/L Total Protein 5.9 L 6.4-8.2 GM/DL Albumin 3.0 L 3.2-4.5 GM/DL RLE--dressing intact intact DF and PF of toes and ankle intact sensation to light touch throughout 2 plus DP pulse with brisk cap refill s/p R hip IM keyonna PT/OT IRU Final Diagnosis no complaints mitchell in denies SOB, cough Laboratory Tests Test 07/08/22 05:41 Range/Units White Blood Count 18.5 H 4.3-11.0 10^3/uL Red Blood Count 3.15 L 3.80-5.11 10^6/uL Hemoglobin 9.9 L 11.5-16.0 g/dL Hematocrit 30 L 35-52 % Mean Corpuscular Volume 94 80-99 fL Mean Corpuscular Hemoglobin 31 25-34 pg Mean Corpuscular Hemoglobin Concent 33 32-36 g/dL Red Cell Distribution Width 16.6 H 10.0-14.5 % Platelet Count 215 130-400 10^3/uL Mean Platelet Volume 9.8 9.0-12.2 fL Immature Granulocyte % (Auto) 1 % Neutrophils (%) (Auto) 82 H 42-75 % Lymphocytes (%) (Auto) 11 L 12-44 % Monocytes (%) (Auto) 7 0-12 % Eosinophils (%) (Auto) 0 0-10 % Basophils (%) (Auto) 0 0-10 % Neutrophils # (Auto) 15.2 H 1.8-7.8 10^3/uL Lymphocytes # (Auto) 2.0 1.0-4.0 10^3/uL Monocytes # (Auto) 1.2 H 0.0-1.0 10^3/uL Eosinophils # (Auto) 0.0 0.0-0.3 10^3/uL Basophils # (Auto) 0.0 0.0-0.1 10^3/uL Immature Granulocyte # (Auto) 0.1 0.0-0.1 10^3/uL Sodium Level 132 L 135-145 MMOL/L Potassium Level 4.4 3.6-5.0 MMOL/L Chloride Level 99 98-107 MMOL/L Carbon Dioxide Level 25 21-32 MMOL/L Anion Gap 8 5-14 MMOL/L Blood Urea Nitrogen 11 7-18 MG/DL Creatinine 0.71 0.60-1.30 MG/DL Estimat Glomerular Filtration Rate 88 BUN/Creatinine Ratio 15 Glucose Level 99 70-105 MG/DL Calcium Level 8.8 8.5-10.1 MG/DL Corrected Calcium 9.5 8.5-10.1 MG/DL Total Bilirubin 0.9 0.1-1.0 MG/DL Aspartate Amino Transf (AST/SGOT) 23 5-34 U/L Alanine Aminotransferase (ALT/SGPT) 14 0-55 U/L Alkaline Phosphatase 40 40-136 U/L Total Protein 5.6 L 6.4-8.2 GM/DL Albumin 3.1 L 3.2-4.5 GM/DL Vital Signs Date Time Temp Pulse Resp B/P (MAP) Pulse Ox O2 Delivery O2 Flow Rate FiO2 07/08/22 04:07 36.5 94 18 120/62 (81) 97 Room Air 07/08/22 01:00 73 07/07/22 23:46 36.4 84 20 100/62 (75) 96 Room Air 07/07/22 20:03 36.9 96 20 108/62 (77) 95 Room Air 07/07/22 20:00 Room Air 07/07/22 19:00 105 07/07/22 16:33 94 Room Air 0.00 07/07/22 16:02 36.5 78 20 111/62 (78) 97 Room Air 07/07/22 13:00 91 07/07/22 12:14 36.9 80 18 99/66 (77) 92 Room Air 07/07/22 08:21 36.7 79 18 129/87 (101) 91 Room Air 07/07/22 08:00 Room Air I & O 07/08/22 07:00 Intake Total 2860 ml Output Total 800 ml Balance 2060 ml R hip with sl bloody DC no erythema or warmth no calf tenderness s/p R hip IM nail PT/OT DC Mitchell check UA CALDERON MCCALL MD Jul 08, 2022 07:45
[2022-07-08 07:46] VITALS: BP 129/75
[2022-07-08] MEDS: LOSARTAN 50 MG (COZAAR) TAB PO SCH (09:18)
[2022-07-08] MEDS: AtorvaSTATin TABLET 10 MG TABLET PO SCH (09:18)
[2022-07-08] MEDS: DOCUSATE SODIUM 100 MG (COLACE) CAP PO SCH ×2 (09:18→20:00)
[2022-07-08] MEDS: SENNOSIDES 8.6 MG (SENOKOT) TAB PO SCH ×2 (09:19→20:00)
[2022-07-08] MEDS: ENOXAPARIN 40 MG/0.4 ML (LOVENOX) SYR SC SCH (09:19)
[2022-07-08 09:32] LABS: BILIRUBIN,URINE NEGATIVE (NEGATIVE); CLARITY,URINE CLEAR; COLOR,URINE YELLOW; GLUCOSE, URINE (UA) NEGATIVE (NEGATIVE); KETONES,URINE NEGATIVE (NEGATIVE); LEUKOCYTE ESTERASE ,URINE NEGATIVE (NEGATIVE); NITRITE,URINE NEGATIVE (NEGATIVE); PROTEIN,URINE NEGATIVE (NEGATIVE)
[2022-07-08 09:40] LABS: BACTERIA,URINE NEGATIVE /HPF; SQUAMOUS EPITHELIAL CELL,UR RARE /HPF
--- NOTE | 2022-07-08 10:36 | Physical Therapy Daily Note ---
PT Daily Note-Current Subjective Patient sitting on edge of bed finishing breakfast upon PT arrival, agreeable to treatment. Patient rates pain in right hip at 5/10. Pain Section J - Health Conditions 1. Rarely or not at all 2. Occasionally 3. Frequently 4. Almost constantly 8. Unable to answer Pain Effect on Sleep: 3 Pain Interference with Therapy: 3 Pain Interference w/Day-to-Day: 3 Mental Status Patient Orientation: Person, Place, Time, Situation Transfers SCALE: Activities may be completed with or without assistive devices. 9-Gjefpddgrw-igovvyg completes the activity by him/herself with no assistance from a helper. 5-Set-up or Clean-up Assistance-helper sets up or cleans up; patient completes activity. [place] assists only prior to or following the activity. 4-Supervision or Touching Assistance-helper provides verbal cues and/or touching/steadying and/or contact guard assistance as patient completes activity. Assistance may be provided throughout the activity or intermittently. 3-Partial/Moderate Assistance-helper does LESS THAN HALF the effort. [place] lifts, holds or supports trunk or limbs, but provides less than half the effort. 2-Substantial/Maximal Assistance-helper does MORE THAN HALF the effort. [place] lifts or holds trunk or limbs and provides more than half the effort. 8-Gegtdtlwy-hecizy does ALL the effort. Patient does none of the effort to complete the activity. Or, the assistance of 2 or more helpers is required for the patient to complete the activity. If activity was not attempted, code reason: 7-Patient Refused. 9-Not Applicable-not attempted and the patient did not perform the activity before the current illness, exacerbation or injury. 10-Not Attempted due to Environmental Limitations-(lack of equipment, weather restraints, etc.). 88-Not Attempted due to Medical Conditions or Safety Concerns. Roll Left & Right (QC): 3 Sit to Lying (QC): 3 Lying to Sitting/Side of Bed(Q: 3 Sit to Stand (QC): 3 Chair/Ecs-ix-Wirqj Xfer(QC): 3 Toilet Transfer (QC): 3 Weight Bearing Right Lower Extremity: Right Weight Bearing/Tolerated Left Lower Extremity: Left Full Weight Bearing Gait Training Does the Patient Walk?: Yes Distance: 15 feet x 2 Walk 10 feet (QC): 3 Gait Persons Needed: 1 Gait Assistive Device: FWW Assessment Current Status: Good Progress Patient tolerates treatment well. Demonstrates min a with all observed transfers. She trasnfers to the [facility] with min A. Requires assistance x 1 for standing and x 1 for hygiene. Patient ambulates 15 feet with FWW, with min A and verbal cues for safety, posture, control of FWW. Patient requires sitting rest break then ambulates 15 feet to the recliner. Patient in recliner post treatment with all needs met, nursing notified, call light in reach and daughter in the room. PT Prison Goals Prison Goals PT Aquatic Performer Goals Time Frame: Jul 14, 2022 Roll Left & Right (QC): 4 Sit to Lying (QC): 4 Lying-Sitting on Side/Bed(QC): 4 Sit to Stand (QC): 4 Chair/Hnl-wf-Khtre Xfer(QC): 4 Toilet Transfer (QC): 4 Car Transfer (QC): 4 Does the Patient Walk: Yes Walk 10 feet (QC): 4 Walk 50ft with 2 Turns (QC): 3 Walk 150 ft (QC): 3 1 Step (curb) (QC): 3 4 Steps (QC): 3 12 Steps (QC): 3 PT Plan Treatment/Plan Treatment Plan: Continue Plan of Care Treatment Plan: Bed Mobility, Education, Functional Activity Chriss, Functional Strength, Group Therapy, Gait, Safety, Therapeutic Exercise, Transfers Treatment Duration: Aug 11, 2022 Frequency: 11 times per week Estimated Hrs Per Day: .25 hour per day Patient and/or Family Agrees t: Yes Safety Risks/Education Patient Education: Gait Training, Transfer Techniques Teaching Recipient: Patient Teaching Methods: Demonstration, Discussion Response to Teaching: Verbalize Understanding, Return Demonstration Time/GCodes Time In: 939 Time Out: 1020 Total Billed Treatment Time: 41 Total Billed Treatment Visit, OFELIA Dai (2) RUBI AKERS PT Jul 08, 2022 10:36
[2022-07-08 11:50] VITALS: BP 93/54
--- NOTE | 2022-07-08 15:29 | Progress Note - Cardiology ---
Cardiology SOAP Progress Note Subjective: No cp or palp or syncope No shortness of breath at rest Gen weakness and malaise are improving No n/v/d Objective: I&O/Vital Signs 07/08/22 07/08/22 07/08/22 07/08/22 04:07 07:00 07:46 08:00 Temp 36.5 36.8 Pulse 94 108 108 Resp 18 18 B/P (MAP) 120/62 (81) 129/75 (93) Pulse Ox 97 96 O2 Delivery Room Air Room Air Room Air 07/08/22 07/08/22 11:50 13:00 Temp 36.8 Pulse 88 92 Resp 20 B/P (MAP) 93/54 (67) Pulse Ox 94 O2 Delivery Room Air 07/08/22 00:00 Intake Total 1210 ml Output Total 450 ml Balance 760 ml Weight (Pounds): 189 Weight (Ounces): 8.5 Weight (Calculated Kilograms): 85.158659 Constitutional: AAO x 3, well-developed, well-nourished Respiratory: No accessory muscle use; other (good, bilateral air entry) Cardiovascular: irregularly irregular, S1 and S2, systolic murmur (2/6 MSM at card apex ) Gastrointestional: No tender; soft; No guarding, No rebound; audible bowel sounds Extremities: No clubbing, No cyanosis, No significant edema Neurologic/Psychiatric: other (moves all limbs equally) Skin: normal color, warm/dry; No rash on exposed areas, No ulcerations on expos ed areas Results/Procedures: Labs Laboratory Tests 07/08/22 05:41: White Blood Count 18.5H, Red Blood Count 3.15L, Hemoglobin 9.9L, Hematocrit 30L, Mean Corpuscular Volume 94, Mean Corpuscular Hemoglobin 31, Mean Corpuscular Hemoglobin Concent 33, Red Cell Distribution Width 16.6H, Platelet Count 215, Mean Platelet Volume 9.8, Immature Granulocyte % (Auto) 1, Neutrophils (%) (Auto) 82H, Lymphocytes (%) (Auto) 11L, Monocytes (%) (Auto) 7, Eosinophils (%) (Auto) 0, Basophils (%) (Auto) 0, Neutrophils # (Auto) 15.2H, Lymphocytes # (Auto) 2.0, Monocytes # (Auto) 1.2H, Eosinophils # (Auto) 0.0, Basophils # (Auto) 0.0, Immature Granulocyte # (Auto) 0.1, Sodium Level 132L, Potassium Level 4.4, Chloride Level 99, Carbon Dioxide Level 25, Anion Gap 8, Blood Urea Nitrogen 11, Creatinine 0.71, Estimat Glomerular Filtration Rate 88, BUN/Creatinine Ratio 15, Glucose Level 99, Calcium Level 8.8, Corrected Calcium 9.5, Total Bilirubin 0.9, Aspartate Amino Transf (AST/SGOT) 23, Alanine Aminotransferase (ALT/SGPT) 14, Alkaline Phosphatase 40, Total Protein 5.6L, Albumin 3.1L 07/08/22 08:00: Urine Color YELLOW, Urine Clarity CLEAR, Urine pH 7.0, Urine Specific [place] 1.010L, Urine Protein NEGATIVE, Urine Glucose (UA) NEGATIVE, Urine Ketones NEGATIVE, Urine Nitrite NEGATIVE, Urine Bilirubin NEGATIVE, Urine Urobilinogen 1.0, Urine Leukocyte Esterase NEGATIVE, Urine RBC (Auto) TRACE-IH, Urine RBC 2- 5H, Urine WBC NONE, Urine Squamous Epithelial Cells RARE, Urine Crystals NONE, Urine Bacteria NEGATIVE, Urine Casts NONE, Urine Mucus NEGATIVE, Urine Culture Indicated NO Microbiology 07/05/22 MRSA Screen - Final, Complete MRSA not isolated Laboratory Tests 07/07/22 05:28 07/08/22 05:41 A/P: Assessment: S/p R hip IM keyonna on 07/06/22 (for hip fracture) Leucocytosis, managed by Dr Cazares Permanent atrial fibrillation - Patient had multiple cardioversions in the past that has failed. She was seen by Dr. Burton, had multiple attempts to treat with antiarrhythmic medication without success. - [id number] score 3, maintained on Xarelto - FAREED in Jun 2020: severe MR, mod to severe TR, LVEF 60% Hypertension, controlled monitor blood pressure Hyperlipidemia Mild bilateral carotid stenosis. Hypothyroidism, has history of thyroid nodule followed by Dr. Toledo History of breast cancer with lumpectomy 1997. Has been in remission Plan: * We recommend resumption of full-dose Xarelto as soon as possible from a surgical standpoint. Currently on enoxaparin for DVT prophylaxis * Monitor labs CELINE OLVERA MD [facility] CCDS Jul 08, 2022 15:29
[2022-07-08 15:33] VITALS: BP 105/62
[2022-07-08] MEDS: FERROUS SULF 325 MG (IRON) TAB PO SCH (17:09)
[2022-07-08 19:37] VITALS: BP 109/58
[2022-07-08] MEDS: VITAMIN D3 25 MCG (1,000 UNITS) TABLET PO SCH (20:00)
[2022-07-08] MEDS: oxyCODONE/APAP 5/325MG (PERCOCET 5) TABLET PO PRN (20:00)
[2022-07-08] MEDS: meTOproloL SUCCINATE 50 MG (TOPROL XL) TAB PO SCH (20:00)
[2022-07-09] VITALS (8 sets, daily range): BP systolic 89–133; BP diastolic 50–71
[2022-07-09 05:40] LABS: BASOPHILS % (AUTO) 0 % (0-10); EOSINOPHILS # (AUTO) 0.2 10^3/uL (0.0-0.3); EOSINOPHILS % (AUTO) 1 % (0-10); HEMATOCRIT 31 % (35-52); HEMOGLOBIN 10.3 g/dL (11.5-16.0); LYMPHOCYTES # (AUTO) 2.6 10^3/uL (1.0-4.0); LYMPHOCYTES % (AUTO) 19 % (12-44); MEAN CORPUSCULAR HEMOGLOBIN 32 pg (25-34); MEAN CORPUSCULAR HGB CONC 34 g/dL (32-36); MEAN CORPUSCULAR VOLUME 95 fL (80-99); MEAN PLATELET VOLUME 9.7 fL (9.0-12.2); MONOCYTES # (AUTO) 1.2 10^3/uL (0.0-1.0); MONOCYTES % (AUTO) 9 % (0-12); NEUTROPHILS # (AUTO) 9.6 10^3/uL (1.8-7.8); NEUTROPHILS % (AUTO) 71 % (42-75); PLATELET COUNT 251 10^3/uL (130-400); WHITE BLOOD COUNT 13.6 10^3/uL (4.3-11.0)
[2022-07-09] MEDS: LEVOTHYROXINE 112 MCG (LEVOTHROID) TAB PO SCH (05:49)
[2022-07-09] MEDS: LEVOTHYROXINE 25 MCG (LEVOTHROID) TAB PO SCH (05:49)
[2022-07-09 05:56] LABS: ALBUMIN 3.2 GM/DL (3.2-4.5)
[2022-07-09 05:57] LABS: CALCIUM 8.6 MG/DL (8.5-10.1)
[2022-07-09 05:58] LABS: TOTAL PROTEIN 5.7 GM/DL (6.4-8.2)
[2022-07-09 06:00] LABS: BILIRUBIN,TOTAL 0.9 MG/DL (0.1-1.0)
[2022-07-09 06:02] LABS: CREATININE SERUM 0.78 MG/DL (0.60-1.30)
--- NOTE | 2022-07-09 07:52 | Progress Note ---
Standard Progress Note Progress Notes/Assess & Plan Date Seen by a Provider: Jul 09, 2022 Time Seen by a Provider: 07:51 Progress/Assessment & Plan no complaints Vital Signs Date Time Temp Pulse Resp B/P (MAP) Pulse Ox O2 Delivery O2 Flow Rate FiO2 07/07/22 08:21 36.7 79 18 129/87 (101) 91 Room Air 07/07/22 07:00 94 07/07/22 03:53 36.0 67 16 115/63 (80) 95 Room Air 07/07/22 01:00 94 07/07/22 00:00 36.2 101 16 137/80 (99) 94 Room Air 07/06/22 20:30 36.9 99 18 133/60 (84) 97 Nasal Cannula 1.00 07/06/22 20:30 97 Nasal Cannula 1.00 07/06/22 19:00 121 07/06/22 15:54 Room Air 07/06/22 15:50 36.3 14 151/84 (106) 93 Room Air 07/06/22 15:40 OxyMask 2.00 07/06/22 15:40 14 163/95 (117) 92 Room Air 07/06/22 15:30 14 153/97 (115) 99 OxyMask 2.00 07/06/22 15:25 OxyMask 4.00 07/06/22 15:20 14 135/74 (94) 100 OxyMask 4.00 07/06/22 15:10 36.6 16 109/73 (85) 99 OxyMask 6.00 07/06/22 15:10 OxyMask 6.00 07/06/22 13:00 103 07/06/22 12:07 37.1 83 18 137/88 (104) 93 Room Air I & O 07/07/22 06:59 Intake Total 610 ml Output Total 1380 ml Balance -770 ml Laboratory Tests Test 07/07/22 05:28 Range/Units White Blood Count 14.1 H 4.3-11.0 10^3/uL Red Blood Count 3.45 L 3.80-5.11 10^6/uL Hemoglobin 10.9 L 11.5-16.0 g/dL Hematocrit 33 L 35-52 % Mean Corpuscular Volume 95 80-99 fL Mean Corpuscular Hemoglobin 32 25-34 pg Mean Corpuscular Hemoglobin Concent 33 32-36 g/dL Red Cell Distribution Width 15.9 H 10.0-14.5 % Platelet Count 204 130-400 10^3/uL Mean Platelet Volume 9.8 9.0-12.2 fL Immature Granulocyte % (Auto) 1 % Neutrophils (%) (Auto) 88 H 42-75 % Lymphocytes (%) (Auto) 8 L 12-44 % Monocytes (%) (Auto) 4 0-12 % Eosinophils (%) (Auto) 0 0-10 % Basophils (%) (Auto) 0 0-10 % Neutrophils # (Auto) 12.5 H 1.8-7.8 10^3/uL Lymphocytes # (Auto) 1.1 1.0-4.0 10^3/uL Monocytes # (Auto) 0.5 0.0-1.0 10^3/uL Eosinophils # (Auto) 0.0 0.0-0.3 10^3/uL Basophils # (Auto) 0.0 0.0-0.1 10^3/uL Immature Granulocyte # (Auto) 0.1 0.0-0.1 10^3/uL Neutrophils % (Manual) 87 % Lymphocytes % (Manual) 7 % Monocytes % (Manual) 3 % Band Neutrophils 3 % Platelet Estimate NORMAL Poikilocytosis SLIGHT Anisocytosis SLIGHT Macrocytosis SLIGHT Elliptocytes SLIGHT Sodium Level 131 L 135-145 MMOL/L Potassium Level 4.3 3.6-5.0 MMOL/L Chloride Level 100 98-107 MMOL/L Carbon Dioxide Level 24 21-32 MMOL/L Anion Gap 7 5-14 MMOL/L Blood Urea Nitrogen 11 7-18 MG/DL Creatinine 0.75 0.60-1.30 MG/DL Estimat Glomerular Filtration Rate 82 BUN/Creatinine Ratio 15 Glucose Level 162 H 70-105 MG/DL Calcium Level 8.4 L 8.5-10.1 MG/DL Corrected Calcium 9.2 8.5-10.1 MG/DL Total Bilirubin 1.1 H 0.1-1.0 MG/DL Aspartate Amino Transf (AST/SGOT) 22 5-34 U/L Alanine Aminotransferase (ALT/SGPT) 15 0-55 U/L Alkaline Phosphatase 43 40-136 U/L Total Protein 5.9 L 6.4-8.2 GM/DL Albumin 3.0 L 3.2-4.5 GM/DL RLE--dressing intact intact DF and PF of toes and ankle intact sensation to light touch throughout 2 plus DP pulse with brisk cap refill s/p R hip IM keyonna PT/OT IRU Final Diagnosis no complaints Vital Signs Date Time Temp Pulse Resp B/P (MAP) Pulse Ox O2 Delivery O2 Flow Rate FiO2 07/09/22 04:00 36.9 83 16 133/63 (86) 96 Room Air 07/09/22 03:34 37.0 94 95 21 07/09/22 01:00 69 07/09/22 00:30 83 18 107/59 (75) 94 Room Air 07/09/22 00:00 36.7 66 16 89/50 (63) 96 Room Air 07/08/22 21:02 126 07/08/22 20:00 Room Air 07/08/22 19:37 36.5 91 20 109/58 (75) 94 Room Air 07/08/22 19:00 85 07/08/22 15:33 36.2 78 20 105/62 (76) 95 Room Air 07/08/22 13:00 92 07/08/22 11:50 36.8 88 20 93/54 (67) 94 Room Air 07/08/22 08:00 Room Air I & O 07/09/22 07:00 Intake Total 1240 ml Output Total 750 ml Balance 490 ml Laboratory Tests Test 07/08/22 08:00 07/09/22 05:36 Range/Units Urine Color YELLOW Urine Clarity CLEAR Urine pH 7.0 5-9 Urine Specific [place] 1.010 L 1.016-1.022 Urine Protein NEGATIVE NEGATIVE Urine Glucose (UA) NEGATIVE NEGATIVE Urine Ketones NEGATIVE NEGATIVE Urine Nitrite NEGATIVE NEGATIVE Urine Bilirubin NEGATIVE NEGATIVE Urine Urobilinogen 1.0 < = 1.0 MG/DL Urine Leukocyte Esterase NEGATIVE NEGATIVE Urine RBC (Auto) TRACE-I H NEGATIVE Urine RBC 2-5 H /HPF Urine WBC NONE /HPF Urine Squamous Epithelial Cells RARE /HPF Urine Crystals NONE /LPF Urine Bacteria NEGATIVE /HPF Urine Casts NONE /LPF Urine Mucus NEGATIVE /LPF Urine Culture Indicated NO White Blood Count 13.6 H 4.3-11.0 10^3/uL Red Blood Count 3.22 L 3.80-5.11 10^6/uL Hemoglobin 10.3 L 11.5-16.0 g/dL Hematocrit 31 L 35-52 % Mean Corpuscular Volume 95 80-99 fL Mean Corpuscular Hemoglobin 32 25-34 pg Mean Corpuscular Hemoglobin Concent 34 32-36 g/dL Red Cell Distribution Width 16.8 H 10.0-14.5 % Platelet Count 251 130-400 10^3/uL Mean Platelet Volume 9.7 9.0-12.2 fL Immature Granulocyte % (Auto) 1 % Neutrophils (%) (Auto) 71 42-75 % Lymphocytes (%) (Auto) 19 12-44 % Monocytes (%) (Auto) 9 0-12 % Eosinophils (%) (Auto) 1 0-10 % Basophils (%) (Auto) 0 0-10 % Neutrophils # (Auto) 9.6 H 1.8-7.8 10^3/uL Lymphocytes # (Auto) 2.6 1.0-4.0 10^3/uL Monocytes # (Auto) 1.2 H 0.0-1.0 10^3/uL Eosinophils # (Auto) 0.2 0.0-0.3 10^3/uL Basophils # (Auto) 0.0 0.0-0.1 10^3/uL Immature Granulocyte # (Auto) 0.1 0.0-0.1 10^3/uL Sodium Level 131 L 135-145 MMOL/L Potassium Level 4.0 3.6-5.0 MMOL/L Chloride Level 100 98-107 MMOL/L Carbon Dioxide Level 25 21-32 MMOL/L Anion Gap 6 5-14 MMOL/L Blood Urea Nitrogen 14 7-18 MG/DL Creatinine 0.78 0.60-1.30 MG/DL Estimat Glomerular Filtration Rate 79 BUN/Creatinine Ratio 18 Glucose Level 89 70-105 MG/DL Calcium Level 8.6 8.5-10.1 MG/DL Corrected Calcium 9.2 8.5-10.1 MG/DL Total Bilirubin 0.9 0.1-1.0 MG/DL Aspartate Amino Transf (AST/SGOT) 24 5-34 U/L Alanine Aminotransferase (ALT/SGPT) 16 0-55 U/L Alkaline Phosphatase 43 40-136 U/L Total Protein 5.7 L 6.4-8.2 GM/DL Albumin 3.2 3.2-4.5 GM/DL RLE--dressing intact has had some bleeding as explected neg Wood's s/p R hip IM keyonna to IRU? CALDERON MCCALL MD Jul 09, 2022 07:52
--- NOTE | 2022-07-09 09:20 | Cardiology Progress Note ---
Subjective Date Seen by Provider: Jul 09, 2022 Time Seen by Provider: 08:50 Subjective/Events-last exam Patient is in bed, reports some mild dyspnea. Denies any chest pain. Objective-Cardiology Exam Last Set of Vital Signs Vital Signs 07/07/22 07/09/22 07/09/22 16:33 03:34 08:23 Temp 36.6 Pulse 60 Resp 18 B/P (MAP) 114/66 (82) Pulse Ox 96 O2 Delivery Room Air O2 Flow Rate 0.00 FiO2 21 I&O Intake and Output 07/09/22 00:00 Intake Total 1290 ml Output Total 600 ml Balance 690 ml Intake Oral 1290 ml Output Urine Total 500 ml Post Void Residual 100 ml # Voids 2 # Bowel Movements 1 General: Alert, Oriented X3 HEENT: Atraumatic Lungs: Clear to Auscultation Heart: Normal S1, Normal S2, Other (Atrial fibrillation, systolic murmur at the left sternal border) Abdomen: Normal Bowel Sounds, Soft Extremities: Other (trace edema) Skin: No Rashes, No Significant Lesion Neuro: Normal Speech, Cranial Nerves 3-12 NL Psych/Mental Status: Mental Status NL, Mood NL Results Lab Laboratory Tests 07/09/22 05:36 A/P-Cardiology Admission Diagnosis Hip fracture Permanent atrial fibrillation Severe mitral regurgitation Hypertension Hyperlipidemia Assessment/Plan Hip fracture, s/p surgical repair with Dr. Bell on 07/06/22 Permanent atrial fibrillation Patient had multiple cardioversions in the past that has failed. She was seen by Dr. Burton, had multiple attempts to treat with antiarrhythmic medication without success. Decision was to accepted as a permanent atrial fibrillation maintained on oral anticoagulation. Patient has been stable and tolerating atrial fibrillation well. Will restart Xarelto when ok with surgeon [id number] score 3, maintained on Xarelto Severe mitral regurgitation with flow reversal in the pulmonic vein, moderate to severe tricuspid regurgitation, normal systolic function ejection fraction 60%. Had FAREED done in June 2020. Hypertension, controlled, monitor blood pressure Hyperlipidemia, monitor lipids Mild bilateral carotid stenosis. Hypothyroidism, has history of thyroid nodule followed by Dr. Toledo History of breast cancer with lumpectomy 1997. Has been in remission Preoperative cardiac evaluation, patient is considered at intermediate risk for perioperative cardiovascular complications, decision regarding the surgery, risk versus benefit is deferred to the surgeon. Supervisory-Addendum Brief Supervisory Addendum Participated in pt care: history, MDM, physical Personally performed: exam, history, MDM Care discussed with: GARRETT Results interpretation: Verified all documentation Notes: Patient was seen and evaluated with Emili, examination performed, management plan was discussed, agree with the current scribed note, I made few changes to the note using Italic font Patient was seen at bedside sitting comfortably, having mild dyspnea Still in atrial fibrillation Will restart Xarelto and discontinue Lovenox I will give her 1 dose of Lasix 20 mg IV Monitor electrolyte and evaluate BNP EMILI HARPER Jul 09, 2022 09:20 CARLOS FORBES MD Jul 09, 2022 10:20
[2022-07-09] MEDS: oxyCODONE/APAP 5/325MG (PERCOCET 5) TABLET PO PRN (09:29)
[2022-07-09] MEDS: LOSARTAN 50 MG (COZAAR) TAB PO SCH (09:29)
[2022-07-09] MEDS: AtorvaSTATin TABLET 10 MG TABLET PO SCH (09:29)
[2022-07-09] MEDS: ENOXAPARIN 40 MG/0.4 ML (LOVENOX) SYR SC SCH (09:30)
[2022-07-09] MEDS: SENNOSIDES 8.6 MG (SENOKOT) TAB PO SCH ×2 (09:30→19:49)
[2022-07-09] MEDS: DOCUSATE SODIUM 100 MG (COLACE) CAP PO SCH ×2 (09:30→19:48)
--- NOTE | 2022-07-09 10:03 | Physical Therapy Daily Note ---
PT Daily Note-Current Subjective Patient agrees to PT. Pain Numeric Pain Scale: 5-Moderate Pain Location: Right Location Body Site: Hip Pain Description: Acute Section J - Health Conditions 1. Rarely or not at all 2. Occasionally 3. Frequently 4. Almost constantly 8. Unable to answer Pain Effect on Sleep: 3 Pain Interference with Therapy: 3 Pain Interference w/Day-to-Day: 3 Mental Status Patient Orientation: Normal For Age Transfers SCALE: Activities may be completed with or without assistive devices. 4-Kkefrnhcvw-fliulea completes the activity by him/herself with no assistance from a helper. 5-Set-up or Clean-up Assistance-helper sets up or cleans up; patient completes activity. [place] assists only prior to or following the activity. 4-Supervision or Touching Assistance-helper provides verbal cues and/or touching/steadying and/or contact guard assistance as patient completes activity. Assistance may be provided throughout the activity or intermittently. 3-Partial/Moderate Assistance-helper does LESS THAN HALF the effort. [place] lifts, holds or supports trunk or limbs, but provides less than half the effort. 2-Substantial/Maximal Assistance-helper does MORE THAN HALF the effort. [place] lifts or holds trunk or limbs and provides more than half the effort. 4-Jevtthdzp-cxiezp does ALL the effort. Patient does none of the effort to complete the activity. Or, the assistance of 2 or more helpers is required for the patient to complete the activity. If activity was not attempted, code reason: 7-Patient Refused. 9-Not Applicable-not attempted and the patient did not perform the activity before the current illness, exacerbation or injury. 10-Not Attempted due to Environmental Limitations-(lack of equipment, weather restraints, etc.). 88-Not Attempted due to Medical Conditions or Safety Concerns. Lying to Sitting/Side of Bed(Q: 3 Sit to Stand (QC): 4 Chair/Mnh-qx-Klpst Xfer(QC): 4 Toilet Transfer (QC): 4 Weight Bearing Right Lower Extremity: Right Weight Bearing/Tolerated Left Lower Extremity: Left Full Weight Bearing Gait Training Distance: 20' x 2 Walk 10 feet (QC): 4 Gait Assistive Device: FWW very slow, step to gait sequence Exercises Supine Ex: Ankle pumps, Quad Set, Heel Slides Supine Reps: 10 Seated Therapy Exercises: Ankle pumps, Long arc quads Seated Reps: 15 Assessment Patient requires time to complete all functional tasks. Patient requires encouragement to actively move right LE due to pain. PT Assisted Goals Assisted Goals PT Nurse Substance Abuse Goals Time Frame: Jul 14, 2022 Roll Left & Right (QC): 4 Sit to Lying (QC): 4 Lying-Sitting on Side/Bed(QC): 4 Sit to Stand (QC): 4 Chair/Kov-ws-Vdxdu Xfer(QC): 4 Toilet Transfer (QC): 4 Car Transfer (QC): 4 Does the Patient Walk: Yes Walk 10 feet (QC): 4 Walk 50ft with 2 Turns (QC): 3 Walk 150 ft (QC): 3 1 Step (curb) (QC): 3 4 Steps (QC): 3 12 Steps (QC): 3 PT Plan Treatment/Plan Treatment Plan: Continue Plan of Care Treatment Plan: Bed Mobility, Education, Functional Activity Chriss, Functional Strength, Group Therapy, Gait, Safety, Therapeutic Exercise, Transfers Treatment Duration: Aug 11, 2022 Frequency: 11 times per week Estimated Hrs Per Day: .25 hour per day Patient and/or Family Agrees t: Yes Time/GCodes Time In: 901 Time Out: 924 Total Billed Treatment Time: 23 Total Billed Treatment 1 visit EX 9 min GT 14 min ROMA BARBOSA PT Jul 09, 2022 10:03
[2022-07-09] MEDS ORDERED: FUROSEMIDE 40 MG/4 ML INJ (LASIX) IVP NR (11:00)
--- NOTE | 2022-07-09 13:10 | Occupational Therapy Eval ---
OT Evaluation-General/PLF Medical Diagnosis Admission Date Jul 05, 2022 at 14:43 Medical Diagnosis: Right femur fracture with ORIF Onset Date: Jul 05, 2022 Therapy Diagnosis Therapy Diagnosis: Reduced ADL status Height/Weight Height (Feet): 5 Height (Inches): 2.00 Weight (Pounds): 189 Weight (Ounces): 8.5 Precautions Precautions/Isolations: Fall Prevention, Standard Precautions Weight Bear Status Weight Bearing Restriction: Weight Bearing/Tolerated Location Restriction: R LE Referral Physician: Dr. Bell Referral Reason: Evaluation/Treatment Medical History Pertinent Medical History: Atrial Fib Current History Pt came into ER after falling onto hip and shoulder. She was found to have a R femur fracture and required surgery. She lives alone in a multi-level home, but is able to perform all tasks on main level. She used a cane prior to hospitaliz ation. She was independent with all ADLs, IADLs and was driving. Reviewed History: Yes Social History Home: Multilevel Current Living Status: Alone Entry Into Home: Stairs With Railing Steps Into Home: 4 Steps Inside Home: 15 (does not have to go to basement) ADL-Prior Level of Function SCALE: Activities may be completed with or without assistive devices. 8-Hzfjonvtxk-kjgdzkq completes the activity by him/herself with no assistance from a helper. 5-Set-up or Clean-up Assistance-helper sets up or cleans up; patient completes activity. [place] assists only prior to or following the activity. 4-Supervision or Touching Assistance-helper provides verbal cues and/or touching/steadying and/or contact guard assistance as patient completes activity. Assistance may be provided throughout the activity or intermittently. 3-Partial/Moderate Assistance-helper does LESS THAN HALF the effort. [place] lifts, holds or supports trunk or limbs, but provides less than half the effort. 2-Substantial/Maximal Assistance-helper does MORE THAN HALF the effort. [place] lifts or holds trunk or limbs and provides more than half the effort. 2-Gktqkueel-knoyhh does ALL the effort. Patient does none of the effort to complete the activity. Or, the assistance of 2 or more helpers is required for the patient to complete the activity. If activity was not attempted, code reason: 7-Patient Refused. 9-Not Applicable-not attempted and the patient did not perform the activity before the current illness, exacerbation or injury. 10-Not Attempted due to Environmental Limitations-(lack of equipment, weather restraints, etc.). 88-Not Attempted due to Medical Conditions or Safety Concerns. Self Care: Independent Functional Cognition: Independent DME/Equipment: Tub/Shower DME/Equipment Comments Retrieve bath bench/chair from basement and put into bathroom Drive Self: Yes OT Current Status Subjective Pt sitting in recliner with daughter present. She agreed to therapy eval. Appearance Pt left sitting in recliner with all needs within reach. Mental Status/Objective Patient Orientation: Person, Place, Time, Situation Attachments: IV Current Glasses/Contacts: Yes Hearing Aids: No Dentures/Partials: No Hand Dominance: Right Upper Extremity ROM WNL Upper Extremity Strength 4-5/5 at shoulders minimally impaired electronic components assembler strength ADL-Treatment Oral Hygiene (QC): 4 (per clinical judgment) Upper Body Dressing (QC): 5 (per clinical judgment) Lower Body Dressing (QC): 3 (post intruction on AE, pt is SBA) On/Off Footwear (QC): 3 (post intruction on AE, pt is SBA) Toileting Hygiene (QC): 4 (for safety) Pt able to doff/don L sock, but unable to reach R foot due to hip pain. Post demonstration for sock aide, is technician and dressing stick, pt was able to use AE with SBA to doff/don R sock and underwear. Sit<>stand transfer: CGA. Pt able to manage brief over hips with steadiness only. Pt requires extra time to complete tasks due to pain. Pt follows directions well. Pt ambulated into bathroom to perform toileting and toileting hygiene with CGA for safety. Pt takes appropriate rest breaks as needed throughout activity. Heavy reliance on UE support with walker when advancing L foot. Pt may benefit from short term OT to address AE, safety, compensatory strategies, and mobility with transfers. Education OT Patient Education: Correct positioning, Energy conservation, Modified ADL techniques, Progress toward Goal/Update tx plan, Purpose of tx/functional activities, Reviewed precautions, Rehab process, Safety issues, Transfer techniques, Use of adapted equipment Teaching Recipient: Patient, Family Teaching Methods: Demonstration, Discussion Response to Teaching: Verbalize Understanding, Return Demonstration OT Frame Pulley Mortising Machine Operator Goals Frame Pulley Mortising Machine Operator Goals Time Frame: Jul 20, 2022 Eating (QC): 6 Oral Hygiene (QC): 6 Toileting Hygiene (QC): 6 Shower/Bathe Self (QC): 5 Upper Body Dressing (QC): 6 Lower Body Dressing (QC): 6 On/Off Footwear (QC): 6 Additional Goals: 1-Demonstrate ADL Tasks, 2-Verbalize Understanding, 3- ImproveStrength/Chriss 1=Demonstrate adherence to instructed precautions during ADL tasks. 2=Patient will verbalize/demonstrate understanding of assistive devices/modifications for ADL. 3=Patient will improve strength/tolerance for activity to enable patient to perform ADL's. OT Education/Plan Problem List/Assessment Assessment: Decreased Activ Tolerance, Decreased Safety Aware, Decreased UE Strength, Impaired Funct Balance, Impaired I ADL's, Impaired Self-Care Skills Discharge Recommendations Plan/Recommendations: Continue POC Therapy Discharge Recommendati: Post Acute OT Equpiment Recommendations-D/C: Bath Chair, Hip Kit Treatment Plan/Plan of Care Treatment,Training & Education: Yes Patient would benefit from OT for education, treatment and training to promote independence in ADL's, mobility, safety and/or upper extremity function for ADL's. Plan of Care: ADL Retraining, Caregiver Training, Functional Mobility, Group Exercise/Act as Ind, UE Funct Exercise/Act Treatment Duration: Jul 20, 2022 Frequency: 3 times per week (3-5x/week) Estimated Hrs Per Day: .25 hour per day Agreement: Yes Rehab Potential: Fair Time/GCodes Start Time: 11:45 Stop Time: 12:23 Total Time Billed (hr/min): 38 Billed Treatment Time 1 visit EVM (10 min) ADL x2 (28 min) Sarah Conti OT Jul 09, 2022 13:10
--- NOTE | 2022-07-09 13:22 | Physical Therapy Daily Note ---
PT Daily Note-Current Subjective Patient agrees to PT. Pain Numeric Pain Scale: 5-Moderate Pain Location: Right Location Body Site: Hip Pain Description: Acute Section J - Health Conditions 1. Rarely or not at all 2. Occasionally 3. Frequently 4. Almost constantly 8. Unable to answer Pain Effect on Sleep: 3 Pain Interference with Therapy: 3 Pain Interference w/Day-to-Day: 3 Mental Status Patient Orientation: Normal For Age Transfers SCALE: Activities may be completed with or without assistive devices. 8-Jtrfvqxvmy-zjgmexw completes the activity by him/herself with no assistance from a helper. 5-Set-up or Clean-up Assistance-helper sets up or cleans up; patient completes activity. [place] assists only prior to or following the activity. 4-Supervision or Touching Assistance-helper provides verbal cues and/or touching/steadying and/or contact guard assistance as patient completes activity. Assistance may be provided throughout the activity or intermittently. 3-Partial/Moderate Assistance-helper does LESS THAN HALF the effort. [place] lifts, holds or supports trunk or limbs, but provides less than half the effort. 2-Substantial/Maximal Assistance-helper does MORE THAN HALF the effort. [place] lifts or holds trunk or limbs and provides more than half the effort. 4-Oufgjdsmb-ncizkr does ALL the effort. Patient does none of the effort to complete the activity. Or, the assistance of 2 or more helpers is required for the patient to complete the activity. If activity was not attempted, code reason: 7-Patient Refused. 9-Not Applicable-not attempted and the patient did not perform the activity before the current illness, exacerbation or injury. 10-Not Attempted due to Environmental Limitations-(lack of equipment, weather restraints, etc.). 88-Not Attempted due to Medical Conditions or Safety Concerns. Sit to Stand (QC): 4 Weight Bearing Right Lower Extremity: Right Weight Bearing/Tolerated Left Lower Extremity: Left Full Weight Bearing Gait Training Distance: 50' Walk 10 feet (QC): 4 Walk 50 ft with 2 Turns(QC): 4 Gait Assistive Device: FWW very slow antalgic gait sequence Exercises Seated Therapy Exercises: Ankle pumps, Long arc quads, Hip flexion Seated Reps: 12 (x 2 sets) Assessment Patient requires time to complete all functional tasks. Patient remains up in recliner with needs met. Noted increase SOA with SAO2 >90% RA. PT Nursing Home Goals Software Project Engineer Goals PT Software Project Engineer Goals Time Frame: Jul 14, 2022 Roll Left & Right (QC): 4 Sit to Lying (QC): 4 Lying-Sitting on Side/Bed(QC): 4 Sit to Stand (QC): 4 Chair/Rxt-ta-Ofals Xfer(QC): 4 Toilet Transfer (QC): 4 Car Transfer (QC): 4 Does the Patient Walk: Yes Walk 10 feet (QC): 4 Walk 50ft with 2 Turns (QC): 3 Walk 150 ft (QC): 3 1 Step (curb) (QC): 3 4 Steps (QC): 3 12 Steps (QC): 3 PT Plan Treatment/Plan Treatment Plan: Continue Plan of Care Treatment Plan: Bed Mobility, Education, Functional Activity Chriss, Functional Strength, Group Therapy, Gait, Safety, Therapeutic Exercise, Transfers Treatment Duration: Aug 11, 2022 Frequency: 11 times per week Estimated Hrs Per Day: .25 hour per day Patient and/or Family Agrees t: Yes Time/GCodes Time In: 1245 Time Out: 1309 Total Billed Treatment Time: 24 Total Billed Treatment 1 visit EX 9 min GT 15 min ROMA BARBOSA PT Jul 09, 2022 13:22
--- NOTE | 2022-07-09 15:44 | Progress Note ---
Subjective Subjective/Events-last exam Patient feeling good today. States that pain is well controlled. She has been up to the bathroom and to the chair this AM. BM this AM and last night. Tolerating PO diet. Review of Systems Pulmonary: No Dyspnea Cardiovascular: No: Chest Pain, Palpitations, Edema Gastrointestinal: No: Nausea, Vomiting, Abdominal Pain, Diarrhea, Constipation Neurological: Weakness, Incoordination; No: Confusion Objective Exam Last Set of Vital Signs Vital Signs Date Time Temp Pulse Resp B/P (MAP) Pulse Ox O2 Delivery O2 Flow Rate FiO2 07/09/22 13:10 90 07/09/22 12:35 36.6 18 117/71 (86) 97 Room Air 07/09/22 03:34 21 07/07/22 16:33 0.00 Capillary Refill : I&O Intake and Output 07/09/22 00:00 Intake Total 1290 ml Output Total 600 ml Balance 690 ml Intake Oral 1290 ml Output Urine Total 500 ml Post Void Residual 100 ml # Voids 2 # Bowel Movements 1 General: Alert, Oriented X3, No Acute Distress Lungs: Clear to Auscultation, Normal Air Movement Heart: Regular Rate, No Murmurs Abdomen: Normal Bowel Sounds, Soft, No Tenderness, No Masses Extremities: Other (mild swelling, compression stockings in place) Neuro: Normal Speech, Cranial Nerves 3-12 NL Psych/Mental Status: Mental Status NL, Mood NL Results/Procedures Lab Laboratory Tests 07/09/22 05:36: White Blood Count 13.6H, Red Blood Count 3.22L, Hemoglobin 10.3L, Hematocrit 31L , Mean Corpuscular Volume 95, Mean Corpuscular Hemoglobin 32, Mean Corpuscular Hemoglobin Concent 34, Red Cell Distribution Width 16.8H, Platelet Count 251, Mean Platelet Volume 9.7, Immature Granulocyte % (Auto) 1, Neutrophils (%) (Auto ) 71, Lymphocytes (%) (Auto) 19, Monocytes (%) (Auto) 9, Eosinophils (%) (Auto) 1, Basophils (%) (Auto) 0, Neutrophils # (Auto) 9.6H, Lymphocytes # (Auto) 2.6, Monocytes # (Auto) 1.2H, Eosinophils # (Auto) 0.2, Basophils # (Auto) 0.0, Immature Granulocyte # (Auto) 0.1, Sodium Level 131L, Potassium Level 4.0, Chloride Level 100, Carbon Dioxide Level 25, Anion Gap 6, Blood Urea Nitrogen 14, Creatinine 0.78, Estimat Glomerular Filtration Rate 79, BUN/Creatinine Ratio 18, Glucose Level 89, Calcium Level 8.6, Corrected Calcium 9.2, Total Bilirubin 0.9, Aspartate Amino Transf (AST/SGOT) 24, Alanine Aminotransferase (ALT/SGPT) 16, Alkaline Phosphatase 43, Total Protein 5.7L, Albumin 3.2 Microbiology 07/05/22 MRSA Screen - Final, Complete MRSA not isolated Assessment/Plan Assessment/Plan (1) Intertrochanteric fracture Status: Acute Assessment & Plan: 07/09: Managed by Ortho, OT ordered today, evaluation for inpt rehab ongoing Qualifiers: Qualified Codes: S72.141A - Displaced intertrochanteric fracture of right femur, initial encounter for closed fracture (2) Afib Status: Chronic Assessment & Plan: 07/09: Rate controlled, on OAC Qualifiers: Qualified Codes: I48.21 - Permanent atrial fibrillation (3) Hypothyroidism Status: Chronic Assessment & Plan: 07/09: continue home meds Qualifiers: Qualified Codes: E03.9 - Hypothyroidism, unspecified (4) HTN (hypertension) Status: Chronic Assessment & Plan: 07/09: Controlled, continue home meds Qualifiers: Qualified Codes: I10 - Essential (primary) hypertension (5) HLD (hyperlipidemia) Status: Chronic Assessment & Plan: - Continue home meds, statin Qualifiers: Qualified Codes: E78.2 - Mixed hyperlipidemia Clinical Quality Measures DVT/VTE Risk/Contraindication: Contraindications-Pharm: Other *list below* Other: surgery JANNET WATTS MD Jul 09, 2022 15:44
[2022-07-09] MEDS: RIVAROXABAN 20 MG TABLET (XARELTO) PO SCH (16:34)
[2022-07-09] MEDS: VITAMIN D3 25 MCG (1,000 UNITS) TABLET PO SCH (19:49)
[2022-07-09] MEDS: meTOproloL SUCCINATE 50 MG (TOPROL XL) TAB PO SCH (22:38)
[2022-07-10 00:09] VITALS: BP 118/70
[2022-07-10 04:11] VITALS: BP 113/59
[2022-07-10] MEDS: LEVOTHYROXINE 25 MCG (LEVOTHROID) TAB PO SCH (05:30)
[2022-07-10] MEDS: LEVOTHYROXINE 112 MCG (LEVOTHROID) TAB PO SCH (05:30)
[2022-07-10 05:55] LABS: BASOPHILS % (AUTO) 0 % (0-10); EOSINOPHILS # (AUTO) 0.2 10^3/uL (0.0-0.3); EOSINOPHILS % (AUTO) 2 % (0-10); HEMATOCRIT 30 % (35-52); HEMOGLOBIN 9.8 g/dL (11.5-16.0); LYMPHOCYTES # (AUTO) 2.5 10^3/uL (1.0-4.0); LYMPHOCYTES % (AUTO) 19 % (12-44); MEAN CORPUSCULAR HEMOGLOBIN 32 pg (25-34); MEAN CORPUSCULAR HGB CONC 33 g/dL (32-36); MEAN CORPUSCULAR VOLUME 97 fL (80-99); MEAN PLATELET VOLUME 9.6 fL (9.0-12.2); MONOCYTES # (AUTO) 1.3 10^3/uL (0.0-1.0); MONOCYTES % (AUTO) 10 % (0-12); NEUTROPHILS # (AUTO) 8.6 10^3/uL (1.8-7.8); NEUTROPHILS % (AUTO) 68 % (42-75); PLATELET COUNT 265 10^3/uL (130-400); WHITE BLOOD COUNT 12.7 10^3/uL (4.3-11.0)
[2022-07-10 06:16] LABS: ALBUMIN 3.1 GM/DL (3.2-4.5); BILIRUBIN,TOTAL 0.9 MG/DL (0.1-1.0); CALCIUM 8.7 MG/DL (8.5-10.1); CREATININE SERUM 0.75 MG/DL (0.60-1.30); POTASSIUM 4.2 MMOL/L (3.6-5.0); TOTAL PROTEIN 5.8 GM/DL (6.4-8.2)
[2022-07-10 08:37] VITALS: BP 131/60
--- NOTE | 2022-07-10 08:46 | Cardiology Progress Note ---
Subjective Date Seen by Provider: Jul 10, 2022 Time Seen by Provider: 08:45 Subjective/Events-last exam Patient was seen at bedside, laying down comfortably, feeling better. Review of Systems General: No Chills, No Night Sweats, No Fatigue, No Malaise, No Appetite, No Other HEENT: No Head Aches, No Visual Changes, No Eye Pain, No Ear Pain, No Dysphasia, No Sinus Congestion, No Post Nasal Drip, No Sore Throat, No Other Pulmonary: No Dyspnea, No Cough, No Pleuritic Chest Pain, No Other Cardiovascular: No: Chest Pain, Palpitations, Orthopnea, Paroxysmal Noc. Dyspnea, Edema, Lt Headedness, Other Objective-Cardiology Exam Last Set of Vital Signs Vital Signs 07/09/22 07/09/22 07/10/22 03:34 19:42 08:37 Temp 36.5 Pulse 86 Resp 18 B/P (MAP) 131/60 (83) Pulse Ox 93 O2 Delivery Room Air O2 Flow Rate 0.00 0.00 FiO2 21 I&O Intake and Output 07/10/22 00:00 Intake Total 2240 ml Output Total 1100 ml Balance 1140 ml Intake Oral 2240 ml Output Urine Total 1100 ml # Voids 3 # Bowel Movements 1 General: Alert, Oriented X3, No Acute Distress HEENT: Atraumatic Lungs: Clear to Auscultation, Normal Air Movement Heart: Normal S1, Normal S2, No Murmurs, Other (Atrial fibrillation) Abdomen: Normal Bowel Sounds, Soft, No Tenderness, No Masses Extremities: Other (mild swelling, compression stockings in place) Skin: No Rashes, No Significant Lesion Neuro: Normal Speech, Cranial Nerves 3-12 NL Psych/Mental Status: Mental Status NL, Mood NL Results Lab Laboratory Tests 07/10/22 05:51 A/P-Cardiology Admission Diagnosis Hip fracture Permanent atrial fibrillation Severe mitral regurgitation Hypertension Hyperlipidemia Assessment/Plan Hip fracture, s/p surgical repair with Dr. Bell on 07/06/22 Permanent atrial fibrillation Patient had multiple cardioversions in the past that has failed. She was seen by Dr. Burton, had multiple attempts to treat with antiarrhythmic medication without success. Decision was to accepted as a permanent atrial fibrillation maintained on oral anticoagulation. Patient has been stable and tolerating atrial fibrillation well. Started back on Xarelto on July 09, 2020 [id number] score 3, maintained on Xarelto Severe mitral regurgitation with flow reversal in the pulmonic vein, moderate to severe tricuspid regurgitation, normal systolic function ejection fraction 60%. Had FAREED done in June 2020. Hypertension, controlled, monitor blood pressure Hyperlipidemia, monitor lipids Mild bilateral carotid stenosis. Hypothyroidism, has history of thyroid nodule followed by Dr. Toledo History of breast cancer with lumpectomy 1997. Has been in remission Preoperative cardiac evaluation, patient is considered at intermediate risk for perioperative cardiovascular complications, decision regarding the surgery, risk versus benefit is deferred to the surgeon. CARLOS FORBES MD Jul 10, 2022 08:46
[2022-07-10] MEDS: DOCUSATE SODIUM 100 MG (COLACE) CAP PO SCH ×2 (08:49→19:44)
[2022-07-10] MEDS: LOSARTAN 50 MG (COZAAR) TAB PO SCH (08:49)
[2022-07-10] MEDS: AtorvaSTATin TABLET 10 MG TABLET PO SCH (08:49)
[2022-07-10] MEDS: SENNOSIDES 8.6 MG (SENOKOT) TAB PO SCH ×2 (08:50→19:44)
--- NOTE | 2022-07-10 09:42 | Occupational Ther Daily Note ---
OT Current Status-Daily Note Subjective Pt sitting in recliner, alert. Pt agrees to therapy. Pt c/o no pain. Mental Status/Objective Patient Orientation: Person, Place, Time, Situation ADL-Treatment Therapy Code Descriptions/Definitions Functional [place] Measure: 0=Not Assessed/NA 4=Minimal Assistance 1=Total Assistance 5=Supervision or Setup 2=Maximal Assistance 6=Modified [place] 3=Moderate Assistance 7=Complete IndependenceSCALE: Activities may be completed with or without assistive devices. 3-Apwflflomv-lxpyxra completes the activity by him/herself with no assistance from a helper. 5-Set-up or Clean-up Assistance-helper sets up or cleans up; patient completes activity. [place] assists only prior to or following the activity. 4-Supervision or Touching Assistance-helper provides verbal cues and/or touching/steadying and/or contact guard assistance as patient completes activity. Assistance may be provided throughout the activity or intermittently. 3-Partial/Moderate Assistance-helper does LESS THAN HALF the effort. [place] lifts, holds or supports trunk or limbs, but provides less than half the effort. 2-Substantial/Maximal Assistance-helper does MORE THAN HALF the effort. [place] lifts or holds trunk or limbs and provides more than half the effort. 8-Qwhqstrhr-rycquq does ALL the effort. Patient does none of the effort to complete the activity. Or, the assistance of 2 or more helpers is required for the patient to complete the activity. If activity was not attempted, code reason: 7-Patient Refused. 9-Not Applicable-not attempted and the patient did not perform the activity before the current illness, exacerbation or injury. 10-Not Attempted due to Environmental Limitations-(lack of equipment, weather restraints, etc.). 88-Not Attempted due to Medical Conditions or Safety Concerns. Other Treatment Pt completed 5 different arm exercises with theraband 10 reps each L and R UE. Pt required no breaks for rest between reps. Pt able to complete exercises after skilled education and visual demonstration. Pt in recliner at end of session. Call light/phone in reach. All needs met in room. Education OT Patient Education: Home exercise program Teaching Recipient: Patient Teaching Methods: Demonstration Response to Teaching: Return Demonstration OT Fpc Goals Fpc Goals Time Frame: Jul 20, 2022 Eating (QC): 6 Oral Hygiene (QC): 6 Toileting Hygiene (QC): 6 Shower/Bathe Self (QC): 5 Upper Body Dressing (QC): 6 Lower Body Dressing (QC): 6 On/Off Footwear (QC): 6 Additional Goals: 1-Demonstrate ADL Tasks, 2-Verbalize Understanding, 3- ImproveStrength/Chriss 1=Demonstrate adherence to instructed precautions during ADL tasks. 2=Patient will verbalize/demonstrate understanding of assistive devices/modifications for ADL. 3=Patient will improve strength/tolerance for activity to enable patient to perform ADL's. OT Education/Plan Problem List/Assessment Assessment: Decreased Activ Tolerance, Decreased UE Strength, Impaired Funct Balance Discharge Recommendations Plan/Recommendations: Continue POC Treatment Plan/Plan of Care Patient would benefit from OT for education, treatment and training to promote independence in ADL's, mobility, safety and/or upper extremity function for ADL's. Plan of Care: ADL Retraining, Caregiver Training, Functional Mobility, Group Exercise/Act as Ind, UE Funct Exercise/Act Treatment Duration: Jul 20, 2022 Frequency: 3 times per week (3-5x/week) Estimated Hrs Per Day: .25 hour per day Agreement: Yes Rehab Potential: Fair Time/GCodes Start Time: 09:15 Stop Time: 09:33 Total Time Billed (hr/min): 18 Billed Treatment Time 1 visit EX 1 (18 min) JULES CHIRINOS Jul 10, 2022 09:42
--- NOTE | 2022-07-10 10:11 | Physical Therapy Daily Note ---
PT Daily Note-Current Subjective Patient and family agree to PT. Pain Numeric Pain Scale: 5-Moderate Pain Location: Right Location Body Site: Hip Pain Description: Acute Section J - Health Conditions 1. Rarely or not at all 2. Occasionally 3. Frequently 4. Almost constantly 8. Unable to answer Pain Effect on Sleep: 2 Pain Interference with Therapy: 2 Pain Interference w/Day-to-Day: 2 Mental Status Patient Orientation: Normal For Age Transfers SCALE: Activities may be completed with or without assistive devices. 5-Qbuzsaxutn-bhguwya completes the activity by him/herself with no assistance from a helper. 5-Set-up or Clean-up Assistance-helper sets up or cleans up; patient completes activity. [place] assists only prior to or following the activity. 4-Supervision or Touching Assistance-helper provides verbal cues and/or touching/steadying and/or contact guard assistance as patient completes activity. Assistance may be provided throughout the activity or intermittently. 3-Partial/Moderate Assistance-helper does LESS THAN HALF the effort. [place] lifts, holds or supports trunk or limbs, but provides less than half the effort. 2-Substantial/Maximal Assistance-helper does MORE THAN HALF the effort. [place] lifts or holds trunk or limbs and provides more than half the effort. 2-Htgjnbhsc-cgtjjv does ALL the effort. Patient does none of the effort to c omplete the activity. Or, the assistance of 2 or more helpers is required for the patient to complete the activity. If activity was not attempted, code reason: 7-Patient Refused. 9-Not Applicable-not attempted and the patient did not perform the activity before the current illness, exacerbation or injury. 10-Not Attempted due to Environmental Limitations-(lack of equipment, weather restraints, etc.). 88-Not Attempted due to Medical Conditions or Safety Concerns. Chair/Wbh-nr-Iowsb Xfer(QC): 4 Weight Bearing Right Lower Extremity: Right Weight Bearing/Tolerated Left Lower Extremity: Left Full Weight Bearing Gait Training Distance: 175' Walk 10 feet (QC): 4 Walk 50 ft with 2 Turns(QC): 4 Walk 150 ft (QC): 4 Gait Assistive Device: FWW slow, steady, slightly antalgic, reciprocal pattern Exercises Supine Ex: Ankle pumps, Quad Set, Heel Slides Supine Reps: 15 (in recliner with bilateral LE elevated) Seated Therapy Exercises: Ankle pumps, Long arc quads Seated Reps: 15 (x 2 sets) Assessment Patient tolerated treatment well and remains up in recliner with needs met. PT to increase activity as tolerated by patient. PT [facility] Goals Blade Worker Goals PT [facility] Goals Time Frame: Jul 14, 2022 Roll Left & Right (QC): 4 Sit to Lying (QC): 4 Lying-Sitting on Side/Bed(QC): 4 Sit to Stand (QC): 4 Chair/Qdi-lk-Iokmw Xfer(QC): 4 Toilet Transfer (QC): 4 Car Transfer (QC): 4 Does the Patient Walk: Yes Walk 10 feet (QC): 4 Walk 50ft with 2 Turns (QC): 3 Walk 150 ft (QC): 3 1 Step (curb) (QC): 3 4 Steps (QC): 3 12 Steps (QC): 3 PT Plan Treatment/Plan Treatment Plan: Continue Plan of Care Treatment Plan: Bed Mobility, Education, Functional Activity Chriss, Functional Strength, Group Therapy, Gait, Safety, Therapeutic Exercise, Transfers Treatment Duration: Aug 11, 2022 Frequency: 11 times per week Estimated Hrs Per Day: .25 hour per day Patient and/or Family Agrees t: Yes Time Time In: 845 Time Out: 910 Total Billed Treatment Time: 25 Total Billed Treatment 1 visit EX 10 min GT 15 min ROMA BARBOSA PT Jul 10, 2022 10:11
[2022-07-10 11:49] VITALS: BP 114/59
--- NOTE | 2022-07-10 13:35 | Physical Therapy Daily Note ---
PT Daily Note-Current Subjective Patient in recliner pre-tx with family in room, reports no pain just a little soreness in R hip, agrees to PT. Pain Section J - Health Conditions 1. Rarely or not at all 2. Occasionally 3. Frequently 4. Almost constantly 8. Unable to answer Pain Effect on Sleep: 2 Pain Interference with Therapy: 2 Pain Interference w/Day-to-Day: 2 Appearance Patient taken to the bathroom with daughter post-tx and instructed to pull nurse call cord when done. Mental Status Patient Orientation: Person, Place, Situation Transfers SCALE: Activities may be completed with or without assistive devices. 8-Rmfpobpzhs-xegdugl completes the activity by him/herself with no assistance from a helper. 5-Set-up or Clean-up Assistance-helper sets up or cleans up; patient completes activity. [place] assists only prior to or following the activity. 4-Supervision or Touching Assistance-helper provides verbal cues and/or touchi ng/steadying and/or contact guard assistance as patient completes activity. Assistance may be provided throughout the activity or intermittently. 3-Partial/Moderate Assistance-helper does LESS THAN HALF the effort. [place] lifts, holds or supports trunk or limbs, but provides less than half the effort. 2-Substantial/Maximal Assistance-helper does MORE THAN HALF the effort. [place] lifts or holds trunk or limbs and provides more than half the effort. 9-Rirosjzbm-kzouth does ALL the effort. Patient does none of the effort to complete the activity. Or, the assistance of 2 or more helpers is required for the patient to complete the activity. If activity was not attempted, code reason: 7-Patient Refused. 9-Not Applicable-not attempted and the patient did not perform the activity before the current illness, exacerbation or injury. 10-Not Attempted due to Environmental Limitations-(lack of equipment, weather restraints, etc.). 88-Not Attempted due to Medical Conditions or Safety Concerns. Sit to Stand (QC): 4 CGA Weight Bearing Right Lower Extremity: Right Weight Bearing/Tolerated Left Lower Extremity: Left Full Weight Bearing Gait Training Does the Patient Walk?: Yes Distance: 100ft Walk 10 feet (QC): 4 Walk 50 ft with 2 Turns(QC): 4 Gait Persons Needed: 1 Gait Assistive Device: FWW Patient walks extremely slow due to SOB and reported being in A-fib for several years. Patient has decreased foot clearance/sometimes sliding foot forward, step through gait on R leg but step-to gait on L leg. Patient needed a standing break every 3-5 steps due to SOB and fatigue. Treatments Ambulation Assessment Current Status: Fair Progress Patient has severely decreased endurance due to SOB from reported of being in A- fib for several years. PT Advertising Supervisor Goals [facility] Goals PT [facility] Goals Time Frame: Jul 14, 2022 Roll Left & Right (QC): 4 Sit to Lying (QC): 4 Lying-Sitting on Side/Bed(QC): 4 Sit to Stand (QC): 4 Chair/Ois-gs-Qzqqg Xfer(QC): 4 Toilet Transfer (QC): 4 Car Transfer (QC): 4 Does the Patient Walk: Yes Walk 10 feet (QC): 4 Walk 50ft with 2 Turns (QC): 3 Walk 150 ft (QC): 3 1 Step (curb) (QC): 3 4 Steps (QC): 3 12 Steps (QC): 3 PT Plan Problem List Problem List: Activity Tolerance, Functional Strength, Safety, Balance, Gait, Transfer, Bed Mobility, ROM Treatment/Plan Treatment Plan: Continue Plan of Care Treatment Plan: Bed Mobility, Education, Functional Activity Chriss, Functional Strength, Group Therapy, Gait, Safety, Therapeutic Exercise, Transfers Treatment Duration: Aug 11, 2022 Frequency: 11 times per week Estimated Hrs Per Day: .25 hour per day Patient and/or Family Agrees t: Yes Safety Risks/Education Patient Education: Gait Training, Transfer Techniques, Correct Positioning, Safety Issues Teaching Recipient: Patient Teaching Methods: Demonstration, Discussion Response to Teaching: Reinforcement Needed Time Time In: 1305 Time Out: 1325 Total Billed Treatment Time: 20 Total Billed Treatment 1 visit FA 20 min PORFIRIO ROCKWELL PT Jul 10, 2022 13:35
[2022-07-10 15:21] VITALS: BP 113/53
[2022-07-10] MEDS: RIVAROXABAN 20 MG TABLET (XARELTO) PO SCH (17:06)
[2022-07-10] MEDS: FERROUS SULF 325 MG (IRON) TAB PO SCH (17:06)
--- NOTE | 2022-07-10 18:21 | Progress Note ---
Subjective Subjective/Events-last exam Patient doing well this AM. States that her pain is well controlled. Tolerating PO diet. States that she walked with PT to the meeting room. Review of Systems General: Fatigue Pulmonary: No Dyspnea, No Cough Cardiovascular: No: Chest Pain, Palpitations, Edema Gastrointestinal: No: Nausea, Vomiting, Abdominal Pain, Diarrhea, Constipation Neurological: Weakness, Incoordination; No: Confusion Objective Exam Last Set of Vital Signs Vital Signs Date Time Temp Pulse Resp B/P (MAP) Pulse Ox O2 Delivery O2 Flow Rate FiO2 07/10/22 15:21 37.2 76 20 113/53 (73) 94 Room Air 07/09/22 19:42 0.00 0.00 07/09/22 03:34 21 Capillary Refill : I&O Intake and Output 07/10/22 00:00 Intake Total 2240 ml Output Total 1100 ml Balance 1140 ml Intake Oral 2240 ml Output Urine Total 1100 ml # Voids 3 # Bowel Movements 1 General: Alert, Oriented X3 Lungs: Clear to Auscultation, Normal Air Movement Heart: Other (controlled rate, permenant Afib) Abdomen: Normal Bowel Sounds, Soft, No Tenderness, No Masses Extremities: Other (trace swelling bilaterally) Skin: No Rashes Neuro: Normal Speech, Strength at 5/5 X4 Ext, Sensation Intact, Cranial Nerves 3-12 NL Psych/Mental Status: Mental Status NL, Mood NL Results/Procedures Lab Laboratory Tests 07/10/22 05:50: B-Type Natriuretic Peptide 174.6H 07/10/22 05:51: White Blood Count 12.7H, Red Blood Count 3.09L, Hemoglobin 9.8L, Hematocrit 30L, Mean Corpuscular Volume 97, Mean Corpuscular Hemoglobin 32, Mean Corpuscular Hemoglobin Concent 33, Red Cell Distribution Width 17.2H, Platelet Count 265, Mean Platelet Volume 9.6, Immature Granulocyte % (Auto) 1, Neutrophils (%) (Auto) 68, Lymphocytes (%) (Auto) 19, Monocytes (%) (Auto) 10, Eosinophils (%) (Auto) 2, Basophils (%) (Auto) 0, Neutrophils # (Auto) 8.6H, Lymphocytes # (Auto) 2.5, Monocytes # (Auto) 1.3H, Eosinophils # (Auto) 0.2, Basophils # (Auto) 0.0, Immature Granulocyte # (Auto) 0.1, Sodium Level 135, Potassium Level 4.2, Chloride Level 100, Carbon Dioxide Level 25, Anion Gap 10, Blood Urea Nitrogen 17, Creatinine 0.75, Estimat Glomerular Filtration Rate 82, BUN/Creatinine Ratio 23, Glucose Level 94, Calcium Level 8.7, Corrected Calcium 9.4, Total Bilirubin 0.9, Aspartate Amino Transf (AST/SGOT) 20, Alanine Aminotransferase (ALT/SGPT) 19, Alkaline Phosphatase 51, Total Protein 5.8L, Albumin 3.1L Microbiology 07/05/22 MRSA Screen - Final, Complete MRSA not isolated Assessment/Plan Assessment/Plan (1) Intertrochanteric fracture Status: Acute Assessment & Plan: 07/09: Managed by Ortho, OT ordered today, evaluation for inpt rehab ongoing 07/10: Waiting for IRF determination, Discussed SNF vs HH Qualifiers: Qualified Codes: S72.141A - Displaced intertrochanteric fracture of right femur, initial encounter for closed fracture (2) Afib Status: Chronic Assessment & Plan: 07/09: Rate controlled, on OAC Qualifiers: Qualified Codes: I48.21 - Permanent atrial fibrillation (3) Hypothyroidism Status: Chronic Assessment & Plan: 07/09: continue home meds Qualifiers: Qualified Codes: E03.9 - Hypothyroidism, unspecified (4) HTN (hypertension) Status: Chronic Assessment & Plan: 07/09: Controlled, continue home meds Qualifiers: Qualified Codes: I10 - Essential (primary) hypertension (5) HLD (hyperlipidemia) Status: Chronic Assessment & Plan: - Continue home meds, statin Qualifiers: Qualified Codes: E78.2 - Mixed hyperlipidemia Clinical Quality Measures DVT/VTE Risk/Contraindication: Contraindications-Pharm: Other *list below* Other: surgery JANNET WATTS MD Jul 10, 2022 18:21
[2022-07-10 19:42] VITALS: BP 130/76
[2022-07-10] MEDS: VITAMIN D3 25 MCG (1,000 UNITS) TABLET PO SCH (19:45)
[2022-07-10] MEDS: meTOproloL SUCCINATE 50 MG (TOPROL XL) TAB PO SCH (19:46)
[2022-07-10] MEDS: oxyCODONE/APAP 5/325MG (PERCOCET 5) TABLET PO PRN (19:51)
[2022-07-11 00:09] VITALS: BP 99/51
[2022-07-11 03:50] VITALS: BP 100/57
[2022-07-11 05:50] LABS: BASOPHILS % (AUTO) 0 % (0-10); EOSINOPHILS # (AUTO) 0.3 10^3/uL (0.0-0.3); EOSINOPHILS % (AUTO) 2 % (0-10); HEMATOCRIT 30 % (35-52); HEMOGLOBIN 9.8 g/dL (11.5-16.0); LYMPHOCYTES % (AUTO) 16 % (12-44); MEAN CORPUSCULAR HEMOGLOBIN 31 pg (25-34); MEAN CORPUSCULAR HGB CONC 33 g/dL (32-36); MEAN CORPUSCULAR VOLUME 97 fL (80-99); MEAN PLATELET VOLUME 9.6 fL (9.0-12.2); MONOCYTES # (AUTO) 1.2 10^3/uL (0.0-1.0); MONOCYTES % (AUTO) 10 % (0-12); NEUTROPHILS # (AUTO) 8.8 10^3/uL (1.8-7.8); NEUTROPHILS % (AUTO) 72 % (42-75); PLATELET COUNT 250 10^3/uL (130-400); WHITE BLOOD COUNT 12.3 10^3/uL (4.3-11.0)
[2022-07-11 06:14] LABS: BILIRUBIN,TOTAL 1.2 MG/DL (0.1-1.0); CALCIUM 8.7 MG/DL (8.5-10.1); CREATININE SERUM 0.72 MG/DL (0.60-1.30); POTASSIUM 4.1 MMOL/L (3.6-5.0); TOTAL PROTEIN 5.6 GM/DL (6.4-8.2)
[2022-07-11] MEDS: LEVOTHYROXINE 112 MCG (LEVOTHROID) TAB PO SCH (06:17)
[2022-07-11] MEDS: LEVOTHYROXINE 25 MCG (LEVOTHROID) TAB PO SCH (06:17)
[2022-07-11] MEDS: oxyCODONE/APAP 5/325MG (PERCOCET 5) TABLET PO PRN ×2 (06:54→17:23)
[2022-07-11 08:00] VITALS: BP 109/62
[2022-07-11] MEDS: LOSARTAN 50 MG (COZAAR) TAB PO SCH (08:25)
[2022-07-11] MEDS: AtorvaSTATin TABLET 10 MG TABLET PO SCH (08:25)
[2022-07-11] MEDS: DOCUSATE SODIUM 100 MG (COLACE) CAP PO SCH ×2 (08:35→19:28)
[2022-07-11] MEDS: SENNOSIDES 8.6 MG (SENOKOT) TAB PO SCH ×2 (08:35→19:28)
--- NOTE | 2022-07-11 09:11 | Cardiology Progress Note ---
Subjective Date Seen by Provider: Jul 11, 2022 Time Seen by Provider: 08:30 Subjective/Events-last exam Patient is sitting up in chair, denies any chest pain Objective-Cardiology Exam Last Set of Vital Signs Vital Signs 07/09/22 07/10/22 07/11/22 03:34 19:42 08:00 Temp 35.8 Pulse 86 Resp 18 B/P (MAP) 109/62 (78) Pulse Ox 93 O2 Delivery Room Air O2 Flow Rate 0.00 0.00 FiO2 21 I&O Intake and Output 07/11/22 00:00 Intake Total 1630 ml Output Total 800 ml Balance 830 ml Intake Oral 1630 ml Output Urine Total 800 ml # Voids 2 # Bowel Movements 2 General: Alert, Oriented X3 HEENT: Atraumatic Lungs: Clear to Auscultation, Normal Air Movement Heart: Other (controlled rate, permenant Afib) Abdomen: Normal Bowel Sounds, Soft, No Tenderness, No Masses Extremities: Other (trace swelling bilaterally) Skin: No Rashes Neuro: Normal Speech, Strength at 5/5 X4 Ext, Sensation Intact, Cranial Nerves 3-12 NL Psych/Mental Status: Mental Status NL, Mood NL Results Lab Laboratory Tests 07/11/22 05:45 A/P-Cardiology Admission Diagnosis Hip fracture Permanent atrial fibrillation Severe mitral regurgitation Hypertension Hyperlipidemia Assessment/Plan Hip fracture, s/p surgical repair with Dr. Bell on 07/06/22 Permanent atrial fibrillation Patient had multiple cardioversions in the past that has failed. She was seen by Dr. Burton, had multiple attempts to treat with antiarrhythmic medication without success. Decision was to accepted as a permanent atrial fibrillation maintained on oral anticoagulation. Patient has been stable and tolerating atrial fibrillation well. Started back on Xarelto on July 09, 2022 [id number] score 3, maintained on Xarelto Severe mitral regurgitation with flow reversal in the pulmonic vein, moderate to severe tricuspid regurgitation, normal systolic function ejection fraction 60%. Had FAREED done in June 2020. Hypertension, controlled, monitor blood pressure Hyperlipidemia, monitor lipids Mild bilateral carotid stenosis. Hypothyroidism, has history of thyroid nodule followed by Dr. Toledo History of breast cancer with lumpectomy 1997. Has been in remission Supervisory-Addendum Brief Supervisory Addendum Participated in pt care: history, MDM, physical Personally performed: exam, history, MDM Care discussed with: GARRETT Results interpretation: Verified all documentation Notes: Patient was seen and evaluated with Emili, examination performed, management plan was discussed, agree with the current scribed note, I made few changes to the note using Italic font Patient was seen at bedside, sitting comfortably, feeling better Borderline blood pressure today, continue on current medication Continue to monitor heart rate and blood pressure EMILI HARPER Jul 11, 2022 09:11 CARLOS FORBES MD Jul 11, 2022 11:35
--- NOTE | 2022-07-11 10:37 | Physical Therapy Daily Note ---
PT Daily Note-Current Subjective Patient in recliner pre tx, agrees to PT, has 3/10 pain in right hip. Pain Section J - Health Conditions 1. Rarely or not at all 2. Occasionally 3. Frequently 4. Almost constantly 8. Unable to answer Pain Effect on Sleep: 2 Pain Interference with Therapy: 2 Pain Interference w/Day-to-Day: 2 Appearance Patient in recliner post tx with nurse call, phone, tray, all needs met. Mental Status Patient Orientation: Person, Place, Situation Transfers SCALE: Activities may be completed with or without assistive devices. 9-Gqktnoyrby-xgrpklw completes the activity by him/herself with no assistance from a helper. 5-Set-up or Clean-up Assistance-helper sets up or cleans up; patient completes activity. [place] assists only prior to or following the activity. 4-Supervision or Touching Assistance-helper provides verbal cues and/or touching/steadying and/or contact guard assistance as patient completes acti vity. Assistance may be provided throughout the activity or intermittently. 3-Partial/Moderate Assistance-helper does LESS THAN HALF the effort. [place] lifts, holds or supports trunk or limbs, but provides less than half the effort. 2-Substantial/Maximal Assistance-helper does MORE THAN HALF the effort. [place] lifts or holds trunk or limbs and provides more than half the effort. 9-Oayzolujy-cioiiu does ALL the effort. Patient does none of the effort to complete the activity. Or, the assistance of 2 or more helpers is required for the patient to complete the activity. If activity was not attempted, code reason: 7-Patient Refused. 9-Not Applicable-not attempted and the patient did not perform the activity before the current illness, exacerbation or injury. 10-Not Attempted due to Environmental Limitations-(lack of equipment, weather restraints, etc.). 88-Not Attempted due to Medical Conditions or Safety Concerns. Sit to Stand (QC): 4 Chair/Kgr-ie-Blkab Xfer(QC): 4 SBA, occasional cues for hand placement Weight Bearing Right Lower Extremity: Right Weight Bearing/Tolerated Left Lower Extremity: Left Full Weight Bearing Gait Training Distance: 100' Walk 10 feet (QC): 4 Walk 50 ft with 2 Turns(QC): 4 Gait Persons Needed: 1 Gait Assistive Device: FWW SBA, very slow ambulation, antalgic, decreased step through on the right side Exercises Supine Ex: Ankle pumps, Quad Set, Glut sets, Heel Slides Supine Reps: 15 (done in recliner with legs elevated) Treatments transfers, ambulation, LE ROM Assessment Current Status: Fair Progress Patient gets SOB with ambulation, needs occasional standing rest breaks, however, her O2 was 96% during these times PT [facility] Goals [facility] Goals PT [facility] Goals Time Frame: Jul 14, 2022 Roll Left & Right (QC): 4 Sit to Lying (QC): 4 Lying-Sitting on Side/Bed(QC): 4 Sit to Stand (QC): 4 Chair/Bxf-ed-Dzugi Xfer(QC): 4 Toilet Transfer (QC): 4 Car Transfer (QC): 4 Does the Patient Walk: Yes Walk 10 feet (QC): 4 Walk 50ft with 2 Turns (QC): 3 Walk 150 ft (QC): 3 1 Step (curb) (QC): 3 4 Steps (QC): 3 12 Steps (QC): 3 PT Plan Problem List Problem List: Activity Tolerance, Functional Strength, Safety, Balance, Gait, Transfer, Bed Mobility, ROM Treatment/Plan Treatment Plan: Continue Plan of Care Treatment Plan: Bed Mobility, Education, Functional Activity Chriss, Functional Strength, Group Therapy, Gait, Safety, Therapeutic Exercise, Transfers Treatment Duration: Aug 11, 2022 Frequency: 11 times per week Estimated Hrs Per Day: .25 hour per day Patient and/or Family Agrees t: Yes Safety Risks/Education Patient Education: Gait Training, Transfer Techniques, Safety Issues Teaching Recipient: Patient Teaching Methods: Demonstration, Discussion Response to Teaching: Reinforcement Needed Time Time In: 1000 Time Out: 1023 Total Billed Treatment Time: 23 Total Billed Treatment 1 visit EX 10' GT 13' PORFIRIO ROCKWELL PT Jul 11, 2022 10:37
--- NOTE | 2022-07-11 12:03 | Progress Note ---
STEPHANIE BARNETT A MED STUDENT 07/11/22 1203: Subjective Date Seen by a Provider: Jul 11, 2022 Time Seen by a Provider: 08:45 Subjective/Events-last exam Pt being seen in f/u for intertrochanteric fracture. Pt reports feeling well today. She is having exertional dyspnea when working with PT and has concerns of need for oxygen. Daughter is concerned about this as well. Discussed that oxygen saturations have been normal and we will continue to monitor them for supplemental oxygen need. Review of Systems General: No Chills, No Fatigue HEENT: No Head Aches, No Visual Changes Pulmonary: Dyspnea (on exertion); No Cough Cardiovascular: No: Chest Pain, Palpitations Gastrointestinal: No: Nausea, Vomiting Genitourinary: No Dysuria, No Frequency Musculoskeletal: leg pain Neurological: No: Weakness, Numbness Objective Exam Last Set of Vital Signs Vital Signs Date Time Temp Pulse Resp B/P (MAP) Pulse Ox O2 Delivery O2 Flow Rate FiO2 07/11/22 10:51 Room Air 07/11/22 08:00 35.8 86 18 109/62 (78) 93 07/10/22 19:42 0.00 0.00 07/09/22 03:34 21 Capillary Refill : I&O Intake and Output 07/10/22 23:59 Intake Total 1630 ml Output Total 800 ml Balance 830 ml Intake Oral 1630 ml Output Urine Total 800 ml # Voids 2 # Bowel Movements 2 General: Alert, Oriented X3 HEENT: Atraumatic, PERRLA Neck: Supple, No JVD Lungs: Clear to Auscultation Heart: Other (irregularly irregular rhythm) Abdomen: Normal Bowel Sounds, Soft Extremities: No Clubbing Skin: No Rashes, No Breakdown Neuro: Normal Speech, Normal Tone Psych/Mental Status: Mental Status NL, Mood NL Results Lab Laboratory Tests 07/11/22 05:45: White Blood Count 12.3H, Red Blood Count 3.12L, Hemoglobin 9.8L, Hematocrit 30L, Mean Corpuscular Volume 97, Mean Corpuscular Hemoglobin 31, Mean Corpuscular Hemoglobin Concent 33, Red Cell Distribution Width 17.2H, Platelet Count 250, Mean Platelet Volume 9.6, Immature Granulocyte % (Auto) 1, Neutrophils (%) (Auto) 72, Lymphocytes (%) (Auto) 16, Monocytes (%) (Auto) 10, Eosinophils (%) (Auto) 2, Basophils (%) (Auto) 0, Neutrophils # (Auto) 8.8H, Lymphocytes # (Auto) 2.0, Monocytes # (Auto) 1.2H, Eosinophils # (Auto) 0.3, Basophils # (Auto) 0.0, Immature Granulocyte # (Auto) 0.1, Sodium Level 135, Potassium Level 4.1, Chloride Level 101, Carbon Dioxide Level 25, Anion Gap 9, Blood Urea Nitrogen 17, Creatinine 0.72, Estimat Glomerular Filtration Rate 87, BUN/Creat inine Ratio 24, Glucose Level 88, Calcium Level 8.7, Corrected Calcium 9.5, Total Bilirubin 1.2H, Aspartate Amino Transf (AST/SGOT) 19, Alanine Aminotransferase (ALT/SGPT) 18, Alkaline Phosphatase 46, Total Protein 5.6L, Albumin 3.0L Microbiology 07/05/22 MRSA Screen - Final, Complete MRSA not isolated Assessment/Plan Assessment/Plan Assess & Plan/Chief Complaint Intertrochanteric fracture Afib Hypothyroidism HTN HLD Intertrochanteric fracture -Managed by surgeon -PT/OT -SS consult for placement in inpatient rehab-insurance still pending Afib -Currently in Afib, asymptomatic -Xarelto -Metoprolol Hypothyroidism -Synthroid HTN -Diltiazem HLD -Lipitor Disposition: Continue PT/OT on 4th floor until approved for IRF or SNF. Clinical Quality Measures DVT/VTE Risk/Contraindication: Contraindications-Pharm: Other *list below* Other: surgery JANNET MCMLILAN MD 07/11/222043: Supervisory-Addendum Brief Verification & Attestation Participated in pt care: history, physical Personally performed: exam, history Care discussed with: Medical Student Procedures: n/a Verification and Attestation of Medical Student E/M Service A medical student performed and documented this service in my presence. I reviewed and verified all information documented by the medical student and made modifications to such information, when appropriate. I personally performed the physical exam and medical decision making. Jannet Mcmillan, Jul 11, 2022,20:42 Awaiting Insurance approval for IRF STEPHANIE BARNETT MED STUDENT Jul 11, 2022 12:03 JANNET MCMILLAN MD Jul 11, 2022 20:44
[2022-07-11 12:17] VITALS: BP 111/65
--- NOTE | 2022-07-11 12:43 | Progress Note ---
Standard Progress Note Progress Notes/Assess & Plan Date Seen by a Provider: Jul 11, 2022 Time Seen by a Provider: 11:00 Progress/Assessment & Plan no complaints Vital Signs Date Time Temp Pulse Resp B/P (MAP) Pulse Ox O2 Delivery O2 Flow Rate FiO2 07/07/22 08:21 36.7 79 18 129/87 (101) 91 Room Air 07/07/22 07:00 94 07/07/22 03:53 36.0 67 16 115/63 (80) 95 Room Air 07/07/22 01:00 94 07/07/22 00:00 36.2 101 16 137/80 (99) 94 Room Air 07/06/22 20:30 36.9 99 18 133/60 (84) 97 Nasal Cannula 1.00 07/06/22 20:30 97 Nasal Cannula 1.00 07/06/22 19:00 121 07/06/22 15:54 Room Air 07/06/22 15:50 36.3 14 151/84 (106) 93 Room Air 07/06/22 15:40 OxyMask 2.00 07/06/22 15:40 14 163/95 (117) 92 Room Air 07/06/22 15:30 14 153/97 (115) 99 OxyMask 2.00 07/06/22 15:25 OxyMask 4.00 07/06/22 15:20 14 135/74 (94) 100 OxyMask 4.00 07/06/22 15:10 36.6 16 109/73 (85) 99 OxyMask 6.00 07/06/22 15:10 OxyMask 6.00 07/06/22 13:00 103 07/06/22 12:07 37.1 83 18 137/88 (104) 93 Room Air I & O 07/07/22 06:59 Intake Total 610 ml Output Total 1380 ml Balance -770 ml Laboratory Tests Test 07/07/22 05:28 Range/Units White Blood Count 14.1 H 4.3-11.0 10^3/uL Red Blood Count 3.45 L 3.80-5.11 10^6/uL Hemoglobin 10.9 L 11.5-16.0 g/dL Hematocrit 33 L 35-52 % Mean Corpuscular Volume 95 80-99 fL Mean Corpuscular Hemoglobin 32 25-34 pg Mean Corpuscular Hemoglobin Concent 33 32-36 g/dL Red Cell Distribution Width 15.9 H 10.0-14.5 % Platelet Count 204 130-400 10^3/uL Mean Platelet Volume 9.8 9.0-12.2 fL Immature Granulocyte % (Auto) 1 % Neutrophils (%) (Auto) 88 H 42-75 % Lymphocytes (%) (Auto) 8 L 12-44 % Monocytes (%) (Auto) 4 0-12 % Eosinophils (%) (Auto) 0 0-10 % Basophils (%) (Auto) 0 0-10 % Neutrophils # (Auto) 12.5 H 1.8-7.8 10^3/uL Lymphocytes # (Auto) 1.1 1.0-4.0 10^3/uL Monocytes # (Auto) 0.5 0.0-1.0 10^3/uL Eosinophils # (Auto) 0.0 0.0-0.3 10^3/uL Basophils # (Auto) 0.0 0.0-0.1 10^3/uL Immature Granulocyte # (Auto) 0.1 0.0-0.1 10^3/uL Neutrophils % (Manual) 87 % Lymphocytes % (Manual) 7 % Monocytes % (Manual) 3 % Band Neutrophils 3 % Platelet Estimate NORMAL Poikilocytosis SLIGHT Anisocytosis SLIGHT Macrocytosis SLIGHT Elliptocytes SLIGHT Sodium Level 131 L 135-145 MMOL/L Potassium Level 4.3 3.6-5.0 MMOL/L Chloride Level 100 98-107 MMOL/L Carbon Dioxide Level 24 21-32 MMOL/L Anion Gap 7 5-14 MMOL/L Blood Urea Nitrogen 11 7-18 MG/DL Creatinine 0.75 0.60-1.30 MG/DL Estimat Glomerular Filtration Rate 82 BUN/Creatinine Ratio 15 Glucose Level 162 H 70-105 MG/DL Calcium Level 8.4 L 8.5-10.1 MG/DL Corrected Calcium 9.2 8.5-10.1 MG/DL Total Bilirubin 1.1 H 0.1-1.0 MG/DL Aspartate Amino Transf (AST/SGOT) 22 5-34 U/L Alanine Aminotransferase (ALT/SGPT) 15 0-55 U/L Alkaline Phosphatase 43 40-136 U/L Total Protein 5.9 L 6.4-8.2 GM/DL Albumin 3.0 L 3.2-4.5 GM/DL RLE--dressing intact intact DF and PF of toes and ankle intact sensation to light touch throughout 2 plus DP pulse with brisk cap refill s/p R hip IM keyonna PT/OT IRU Final Diagnosis no complaints Vital Signs Date Time Temp Pulse Resp B/P (MAP) Pulse Ox O2 Delivery O2 Flow Rate FiO2 07/11/22 12:17 36.9 82 18 111/65 (80) 93 Room Air 07/11/22 10:51 Room Air 07/11/22 08:00 Room Air 07/11/22 08:00 35.8 86 18 109/62 (78) 93 Room Air 07/11/22 07:04 101 07/11/22 03:50 36.7 85 20 100/57 (71) 95 Room Air 07/11/22 01:00 86 07/11/22 00:09 36.9 83 18 99/51 (67) 94 Room Air 07/10/22 19:45 Room Air 07/10/22 19:42 37.1 104 18 130/76 (94) 96 Room Air 0.00 0.00 07/10/22 19:00 97 07/10/22 15:21 37.2 76 20 113/53 (73) 94 Room Air 07/10/22 13:30 114 I & O 07/11/22 06:59 Intake Total 1430 ml Output Total 500 ml Balance 930 ml Laboratory Tests Test 07/11/22 05:45 Range/Units White Blood Count 12.3 H 4.3-11.0 10^3/uL Red Blood Count 3.12 L 3.80-5.11 10^6/uL Hemoglobin 9.8 L 11.5-16.0 g/dL Hematocrit 30 L 35-52 % Mean Corpuscular Volume 97 80-99 fL Mean Corpuscular Hemoglobin 31 25-34 pg Mean Corpuscular Hemoglobin Concent 33 32-36 g/dL Red Cell Distribution Width 17.2 H 10.0-14.5 % Platelet Count 250 130-400 10^3/uL Mean Platelet Volume 9.6 9.0-12.2 fL Immature Granulocyte % (Auto) 1 % Neutrophils (%) (Auto) 72 42-75 % Lymphocytes (%) (Auto) 16 12-44 % Monocytes (%) (Auto) 10 0-12 % Eosinophils (%) (Auto) 2 0-10 % Basophils (%) (Auto) 0 0-10 % Neutrophils # (Auto) 8.8 H 1.8-7.8 10^3/uL Lymphocytes # (Auto) 2.0 1.0-4.0 10^3/uL Monocytes # (Auto) 1.2 H 0.0-1.0 10^3/uL Eosinophils # (Auto) 0.3 0.0-0.3 10^3/uL Basophils # (Auto) 0.0 0.0-0.1 10^3/uL Immature Granulocyte # (Auto) 0.1 0.0-0.1 10^3/uL Sodium Level 135 135-145 MMOL/L Potassium Level 4.1 3.6-5.0 MMOL/L Chloride Level 101 98-107 MMOL/L Carbon Dioxide Level 25 21-32 MMOL/L Anion Gap 9 5-14 MMOL/L Blood Urea Nitrogen 17 7-18 MG/DL Creatinine 0.72 0.60-1.30 MG/DL Estimat Glomerular Filtration Rate 87 BUN/Creatinine Ratio 24 Glucose Level 88 70-105 MG/DL Calcium Level 8.7 8.5-10.1 MG/DL Corrected Calcium 9.5 8.5-10.1 MG/DL Total Bilirubin 1.2 H 0.1-1.0 MG/DL Aspartate Amino Transf (AST/SGOT) 19 5-34 U/L Alanine Aminotransferase (ALT/SGPT) 18 0-55 U/L Alkaline Phosphatase 46 40-136 U/L Total Protein 5.6 L 6.4-8.2 GM/DL Albumin 3.0 L 3.2-4.5 GM/DL r hip incision echymotic without erythyma no calf tenderness s/p R hip IM keyonna PT/OT CALDERON MCCALL MD Jul 11, 2022 12:43
--- NOTE | 2022-07-11 14:03 | Physical Therapy Daily Note ---
PT Daily Note-Current Subjective Pt. up in recliner, family present. Pt. agrees to rx, comments that she feels better. Pain Location: No Pain Reported Section J - Health Conditions 1. Rarely or not at all 2. Occasionally 3. Frequently 4. Almost constantly 8. Unable to answer Pain Effect on Sleep: 1 Pain Interference with Therapy: 1 Pain Interference w/Day-to-Day: 1 Mental Status Patient Orientation: Normal For Age Transfers SCALE: Activities may be completed with or without assistive devices. 3-Yligpvtgad-hyjtxpk completes the activity by him/herself with no assistance from a helper. 5-Set-up or Clean-up Assistance-helper sets up or cleans up; patient completes activity. [place] assists only prior to or following the activity. 4-Supervision or Touching Assistance-helper provides verbal cues and/or touching/steadying and/or contact guard assistance as patient completes activity. Assistance may be provided throughout the activity or intermittently. 3-Partial/Moderate Assistance-helper does LESS THAN HALF the effort. [place] lifts, holds or supports trunk or limbs, but provides less than half the effort. 2-Substantial/Maximal Assistance-helper does MORE THAN HALF the effort. [place] lifts or holds trunk or limbs and provides more than half the effort. 4-Qmvddqctx-lkumgt does ALL the effort. Patient does none of the effort to complete the activity. Or, the assistance of 2 or more helpers is required for the patient to complete the activity. If activity was not attempted, code reason: 7-Patient Refused. 9-Not Applicable-not attempted and the patient did not perform the activity before the current illness, exacerbation or injury. 10-Not Attempted due to Environmental Limitations-(lack of equipment, weather restraints, etc.). 88-Not Attempted due to Medical Conditions or Safety Concerns. Sit to Stand (QC): 6 Chair/Wpv-rr-Jlsyy Xfer(QC): 6 Toilet Transfer (QC): 6 Weight Bearing Right Lower Extremity: Right Weight Bearing/Tolerated Left Lower Extremity: Left Full Weight Bearing Gait Training Does the Patient Walk?: Yes Walk 10 feet (QC): 4 Walk 50 ft with 2 Turns(QC): 4 Walk 150 ft (QC): 4 Gait Persons Needed: 1 Gait Assistive Device: FWW slow, no LOB, careful, looks down , needs directed to gaze ahead occas Exercises Supine Ex: Ankle pumps, Quad Set, Glut sets, Heel Slides, Short Arc Quads, Hip abd/add Supine Reps: 15 Treatments therex in reclined recliner, gait, toileting managing pants and clean up SBA, washed hands at sink after, back up in recliner, making progress Assessment Current Status: Good Progress PT [facility] Goals [facility] Goals PT [facility] Goals Time Frame: Jul 14, 2022 Roll Left & Right (QC): 4 Sit to Lying (QC): 4 Lying-Sitting on Side/Bed(QC): 4 Sit to Stand (QC): 4 Chair/Ffu-mj-Hsszi Xfer(QC): 4 Toilet Transfer (QC): 4 Car Transfer (QC): 4 Does the Patient Walk: Yes Walk 10 feet (QC): 4 Walk 50ft with 2 Turns (QC): 3 Walk 150 ft (QC): 3 1 Step (curb) (QC): 3 4 Steps (QC): 3 12 Steps (QC): 3 PT Plan Treatment/Plan Treatment Plan: Continue Plan of Care Treatment Plan: Bed Mobility, Education, Functional Activity Chriss, Functional Strength, Group Therapy, Gait, Safety, Therapeutic Exercise, Transfers Treatment Duration: Aug 11, 2022 Frequency: 11 times per week Estimated Hrs Per Day: .25 hour per day Patient and/or Family Agrees t: Yes Safety Risks/Education Patient Education: Gait Training, Transfer Techniques, Correct Positioning, Disease Process, Safety Issues Teaching Recipient: Patient Teaching Methods: Demonstration, Discussion Response to Teaching: Verbalize Understanding, Return Demonstration, Reinforcement Needed Time Time In: 1325 Time Out: 1355 Total Billed Treatment Time: 30 Total Billed Treatment 1,GT20m,EX10m RICK [facility] [employer] CELL TUBER Jul 11, 2022 14:03
[2022-07-11 16:02] VITALS: BP 115/71
[2022-07-11] MEDS: RIVAROXABAN 20 MG TABLET (XARELTO) PO SCH (17:19)
[2022-07-11 20:38] VITALS: BP 100/64
[2022-07-11] MEDS: meTOproloL SUCCINATE 50 MG (TOPROL XL) TAB PO SCH (21:17)
[2022-07-11] MEDS: VITAMIN D3 25 MCG (1,000 UNITS) TABLET PO SCH (21:17)
[2022-07-12] VITALS (8 sets, daily range): BP systolic 98–129; BP diastolic 58–74
[2022-07-12 05:41] LABS: BASOPHILS # (AUTO) 0.1 10^3/uL (0.0-0.1); BASOPHILS % (AUTO) 0 % (0-10); EOSINOPHILS # (AUTO) 0.2 10^3/uL (0.0-0.3); EOSINOPHILS % (AUTO) 2 % (0-10); HEMATOCRIT 28 % (35-52); HEMOGLOBIN 9.3 g/dL (11.5-16.0); LYMPHOCYTES % (AUTO) 16 % (12-44); MEAN CORPUSCULAR HEMOGLOBIN 32 pg (25-34); MEAN CORPUSCULAR HGB CONC 33 g/dL (32-36); MEAN CORPUSCULAR VOLUME 97 fL (80-99); MEAN PLATELET VOLUME 9.7 fL (9.0-12.2); MONOCYTES # (AUTO) 1.2 10^3/uL (0.0-1.0); MONOCYTES % (AUTO) 10 % (0-12); NEUTROPHILS % (AUTO) 71 % (42-75); PLATELET COUNT 269 10^3/uL (130-400); WHITE BLOOD COUNT 12.7 10^3/uL (4.3-11.0)
[2022-07-12 05:53] LABS: ALBUMIN 2.8 GM/DL (3.2-4.5)
[2022-07-12 05:54] LABS: CALCIUM 8.3 MG/DL (8.5-10.1)
[2022-07-12 05:56] LABS: TOTAL PROTEIN 5.2 GM/DL (6.4-8.2)
[2022-07-12 05:57] LABS: BILIRUBIN,TOTAL 1.6 MG/DL (0.1-1.0)
[2022-07-12 05:59] LABS: CREATININE SERUM 0.7 MG/DL (0.60-1.30)
[2022-07-12] MEDS: oxyCODONE/APAP 5/325MG (PERCOCET 5) TABLET PO PRN ×3 (06:20→20:36)
[2022-07-12] MEDS: LEVOTHYROXINE 112 MCG (LEVOTHROID) TAB PO SCH (06:20)
[2022-07-12] MEDS: LEVOTHYROXINE 25 MCG (LEVOTHROID) TAB PO SCH (06:20)
--- NOTE | 2022-07-12 07:59 | Progress Note ---
Standard Progress Note Progress Notes/Assess & Plan Date Seen by a Provider: Jul 12, 2022 Time Seen by a Provider: 07:57 Progress/Assessment & Plan no complaints Vital Signs Date Time Temp Pulse Resp B/P (MAP) Pulse Ox O2 Delivery O2 Flow Rate FiO2 07/07/22 08:21 36.7 79 18 129/87 (101) 91 Room Air 07/07/22 07:00 94 07/07/22 03:53 36.0 67 16 115/63 (80) 95 Room Air 07/07/22 01:00 94 07/07/22 00:00 36.2 101 16 137/80 (99) 94 Room Air 07/06/22 20:30 36.9 99 18 133/60 (84) 97 Nasal Cannula 1.00 07/06/22 20:30 97 Nasal Cannula 1.00 07/06/22 19:00 121 07/06/22 15:54 Room Air 07/06/22 15:50 36.3 14 151/84 (106) 93 Room Air 07/06/22 15:40 OxyMask 2.00 07/06/22 15:40 14 163/95 (117) 92 Room Air 07/06/22 15:30 14 153/97 (115) 99 OxyMask 2.00 07/06/22 15:25 OxyMask 4.00 07/06/22 15:20 14 135/74 (94) 100 OxyMask 4.00 07/06/22 15:10 36.6 16 109/73 (85) 99 OxyMask 6.00 07/06/22 15:10 OxyMask 6.00 07/06/22 13:00 103 07/06/22 12:07 37.1 83 18 137/88 (104) 93 Room Air I & O 07/07/22 06:59 Intake Total 610 ml Output Total 1380 ml Balance -770 ml Laboratory Tests Test 07/07/22 05:28 Range/Units White Blood Count 14.1 H 4.3-11.0 10^3/uL Red Blood Count 3.45 L 3.80-5.11 10^6/uL Hemoglobin 10.9 L 11.5-16.0 g/dL Hematocrit 33 L 35-52 % Mean Corpuscular Volume 95 80-99 fL Mean Corpuscular Hemoglobin 32 25-34 pg Mean Corpuscular Hemoglobin Concent 33 32-36 g/dL Red Cell Distribution Width 15.9 H 10.0-14.5 % Platelet Count 204 130-400 10^3/uL Mean Platelet Volume 9.8 9.0-12.2 fL Immature Granulocyte % (Auto) 1 % Neutrophils (%) (Auto) 88 H 42-75 % Lymphocytes (%) (Auto) 8 L 12-44 % Monocytes (%) (Auto) 4 0-12 % Eosinophils (%) (Auto) 0 0-10 % Basophils (%) (Auto) 0 0-10 % Neutrophils # (Auto) 12.5 H 1.8-7.8 10^3/uL Lymphocytes # (Auto) 1.1 1.0-4.0 10^3/uL Monocytes # (Auto) 0.5 0.0-1.0 10^3/uL Eosinophils # (Auto) 0.0 0.0-0.3 10^3/uL Basophils # (Auto) 0.0 0.0-0.1 10^3/uL Immature Granulocyte # (Auto) 0.1 0.0-0.1 10^3/uL Neutrophils % (Manual) 87 % Lymphocytes % (Manual) 7 % Monocytes % (Manual) 3 % Band Neutrophils 3 % Platelet Estimate NORMAL Poikilocytosis SLIGHT Anisocytosis SLIGHT Macrocytosis SLIGHT Elliptocytes SLIGHT Sodium Level 131 L 135-145 MMOL/L Potassium Level 4.3 3.6-5.0 MMOL/L Chloride Level 100 98-107 MMOL/L Carbon Dioxide Level 24 21-32 MMOL/L Anion Gap 7 5-14 MMOL/L Blood Urea Nitrogen 11 7-18 MG/DL Creatinine 0.75 0.60-1.30 MG/DL Estimat Glomerular Filtration Rate 82 BUN/Creatinine Ratio 15 Glucose Level 162 H 70-105 MG/DL Calcium Level 8.4 L 8.5-10.1 MG/DL Corrected Calcium 9.2 8.5-10.1 MG/DL Total Bilirubin 1.1 H 0.1-1.0 MG/DL Aspartate Amino Transf (AST/SGOT) 22 5-34 U/L Alanine Aminotransferase (ALT/SGPT) 15 0-55 U/L Alkaline Phosphatase 43 40-136 U/L Total Protein 5.9 L 6.4-8.2 GM/DL Albumin 3.0 L 3.2-4.5 GM/DL RLE--dressing intact intact DF and PF of toes and ankle intact sensation to light touch throughout 2 plus DP pulse with brisk cap refill s/p R hip IM keyonna PT/OT IRU Final Diagnosis no complaints Vital Signs Date Time Temp Pulse Resp B/P (MAP) Pulse Ox O2 Delivery O2 Flow Rate FiO2 07/12/22 07:00 99 07/12/22 03:33 36.8 76 18 118/74 (89) 95 Room Air 07/12/22 01:00 86 07/12/22 00:00 36.8 73 18 117/67 (84) 96 Room Air 07/11/22 20:38 37.4 100 18 100/64 (76) 95 Room Air 07/11/22 20:00 Room Air 07/11/22 19:00 96 07/11/22 16:02 37.1 99 20 115/71 (86) 96 Room Air 07/11/22 12:46 92 07/11/22 12:17 36.9 82 18 111/65 (80) 93 Room Air 07/11/22 10:51 Room Air 07/11/22 08:00 Room Air 07/11/22 08:00 35.8 86 18 109/62 (78) 93 Room Air I & O 07/12/22 07:00 Intake Total 2020 ml Balance 2020 ml Laboratory Tests Test 07/12/22 05:05 Range/Units White Blood Count 12.7 H 4.3-11.0 10^3/uL Red Blood Count 2.94 L 3.80-5.11 10^6/uL Hemoglobin 9.3 L 11.5-16.0 g/dL Hematocrit 28 L 35-52 % Mean Corpuscular Volume 97 80-99 fL Mean Corpuscular Hemoglobin 32 25-34 pg Mean Corpuscular Hemoglobin Concent 33 32-36 g/dL Red Cell Distribution Width 17.2 H 10.0-14.5 % Platelet Count 269 130-400 10^3/uL Mean Platelet Volume 9.7 9.0-12.2 fL Immature Granulocyte % (Auto) 1 % Neutrophils (%) (Auto) 71 42-75 % Lymphocytes (%) (Auto) 16 12-44 % Monocytes (%) (Auto) 10 0-12 % Eosinophils (%) (Auto) 2 0-10 % Basophils (%) (Auto) 0 0-10 % Neutrophils # (Auto) 9.0 H 1.8-7.8 10^3/uL Lymphocytes # (Auto) 2.0 1.0-4.0 10^3/uL Monocytes # (Auto) 1.2 H 0.0-1.0 10^3/uL Eosinophils # (Auto) 0.2 0.0-0.3 10^3/uL Basophils # (Auto) 0.1 0.0-0.1 10^3/uL Immature Granulocyte # (Auto) 0.1 0.0-0.1 10^3/uL Sodium Level 135 135-145 MMOL/L Potassium Level 4.0 3.6-5.0 MMOL/L Chloride Level 102 98-107 MMOL/L Carbon Dioxide Level 26 21-32 MMOL/L Anion Gap 7 5-14 MMOL/L Blood Urea Nitrogen 17 7-18 MG/DL Creatinine 0.70 0.60-1.30 MG/DL Estimat Glomerular Filtration Rate 90 BUN/Creatinine Ratio 24 Glucose Level 96 70-105 MG/DL Calcium Level 8.3 L 8.5-10.1 MG/DL Corrected Calcium 9.3 8.5-10.1 MG/DL Total Bilirubin 1.6 H 0.1-1.0 MG/DL Aspartate Amino Transf (AST/SGOT) 17 5-34 U/L Alanine Aminotransferase (ALT/SGPT) 14 0-55 U/L Alkaline Phosphatase 43 40-136 U/L Total Protein 5.2 L 6.4-8.2 GM/DL Albumin 2.8 L 3.2-4.5 GM/DL R hip incision with serosanguinous DC superiorly no erythema or warmth s/p R hip IM keyonna PT/OT await disposition CALDERON MCCALL MD Jul 12, 2022 07:59
[2022-07-12] MEDS: AtorvaSTATin TABLET 10 MG TABLET PO SCH (08:03)
[2022-07-12] MEDS: DOCUSATE SODIUM 100 MG (COLACE) CAP PO SCH ×2 (08:03→20:33)
[2022-07-12] MEDS: LOSARTAN 50 MG (COZAAR) TAB PO SCH (08:03)
[2022-07-12] MEDS: SENNOSIDES 8.6 MG (SENOKOT) TAB PO SCH ×2 (08:04→20:33)
--- NOTE | 2022-07-12 08:31 | Cardiology Progress Note ---
Subjective Date Seen by Provider: Jul 12, 2022 Time Seen by Provider: 08:31 Subjective/Events-last exam Patient was seen at bedside, laying down comfortably, feeling well. No new complaint. Objective-Cardiology Exam Last Set of Vital Signs Vital Signs 07/09/22 07/10/22 07/12/22 03:34 19:42 08:16 Temp 36.6 Pulse 62 Resp 18 B/P (MAP) 124/63 (83) Pulse Ox 96 O2 Delivery Room Air O2 Flow Rate 0.00 0.00 FiO2 21 I&O Intake and Output 07/12/22 00:00 Intake Total 1820 ml Balance 1820 ml Intake Oral 1820 ml # Voids 5 # Bowel Movements 2 General: Alert, Oriented X3 HEENT: Atraumatic, PERRLA Neck: Supple, No JVD Lungs: Clear to Auscultation Heart: Other (irregularly irregular rhythm) Abdomen: Normal Bowel Sounds, Soft Extremities: No Clubbing Skin: No Rashes, No Breakdown Neuro: Normal Speech, Normal Tone Psych/Mental Status: Mental Status NL, Mood NL Results Lab Laboratory Tests 07/12/22 05:05 A/P-Cardiology Admission Diagnosis Hip fracture Permanent atrial fibrillation Severe mitral regurgitation Hypertension Hyperlipidemia Assessment/Plan Hip fracture, s/p surgical repair with Dr. Bell on 07/06/22 Permanent atrial fibrillation Patient had multiple cardioversions in the past that has failed. She was seen by Dr. Burton, had multiple attempts to treat with antiarrhythmic medication without success. Decision was to accepted as a permanent atrial fibrillation maintained on oral anticoagulation. Patient has been stable and tolerating atrial fibrillation well. Started back on Xarelto on July 09, 2022 [id number] score 3, maintained on Xarelto Severe mitral regurgitation with flow reversal in the pulmonic vein, moderate to severe tricuspid regurgitation, normal systolic function ejection fraction 60%. Had FAREED done in June 2020. Hypertension, controlled, monitor blood pressure Hyperlipidemia, monitor lipids Mild bilateral carotid stenosis. Hypothyroidism, has history of thyroid nodule followed by Dr. Toledo History of breast cancer with lumpectomy 1997. Has been in remission CARLOS FORBES MD Jul 12, 2022 08:31
--- NOTE | 2022-07-12 09:20 | Occupational Ther Daily Note ---
OT Current Status-Daily Note Subjective Pt in recliner, alert. Pt agrees to therapy. Pt c/o no pain. Mental Status/Objective Patient Orientation: Person, Place, Time, Situation ADL-Treatment Therapist provided skilled education on use of adaptive equipment. Pt used dressing stick to lace L and R LE through underwear. Pt transferred from sit to stand with FWW to hike underwear over hips, SBA. Pt able to don/doff socks in dependently on L LE using figure 4 method and required use of dressing stick for R LE, pt was able to adhere to hip precautions while performing figure 4 method. Pt don/doffed shoes on L LE independently and required max A to don/doff shoes on R LE. Phone/call light in reach and all needs met in room. Therapy Code Descriptions/Definitions Functional [place] Measure: 0=Not Assessed/NA 4=Minimal Assistance 1=Total Assistance 5=Supervision or Setup 2=Maximal Assistance 6=Modified [place] 3=Moderate Assistance 7=Complete IndependenceSCALE: Activities may be completed with or without assistive devices. 6-Gldjdwlqkl-qplcivb completes the activity by him/herself with no assistance from a helper. 5-Set-up or Clean-up Assistance-helper sets up or cleans up; patient completes activity. [place] assists only prior to or following the activity. 4-Supervision or Touching Assistance-helper provides verbal cues and/or touching/steadying and/or contact guard assistance as patient completes activity. Assistance may be provided throughout the activity or intermittently. 3-Partial/Moderate Assistance-helper does LESS THAN HALF the effort. [place] lifts, holds or supports trunk or limbs, but provides less than half the effort. 2-Substantial/Maximal Assistance-helper does MORE THAN HALF the effort. [place] lifts or holds trunk or limbs and provides more than half the effort. 3-Lgyaxqubi-nmrkns does ALL the effort. Patient does none of the effort to complete the activity. Or, the assistance of 2 or more helpers is required for the patient to complete the activity. If activity was not attempted, code reason: 7-Patient Refused. 9-Not Applicable-not attempted and the patient did not perform the activity before the current illness, exacerbation or injury. 10-Not Attempted due to Environmental Limitations-(lack of equipment, weather restraints, etc.). 88-Not Attempted due to Medical Conditions or Safety Concerns. Eating (QC): 6 Lower Body Dressing (QC): 4 On/Off Footwear: 3 (mod A) Educated daughter on where to purchase adaptive equipment. Provided elastic shoelaces and long handled sponge. Education OT Patient Education: Home exercise program, Use of adapted equipment OT Air Analyst Goals Air Analyst Goals Time Frame: Jul 20, 2022 Eating (QC): 6 Oral Hygiene (QC): 6 Toileting Hygiene (QC): 6 Shower/Bathe Self (QC): 5 Upper Body Dressing (QC): 6 Lower Body Dressing (QC): 6 On/Off Footwear (QC): 6 Additional Goals: 1-Demonstrate ADL Tasks, 2-Verbalize Understanding, 3-ImproveStrength/Chriss 1=Demonstrate adherence to instructed precautions during ADL tasks. 2=Patient will verbalize/demonstrate understanding of assistive devices/modifications for ADL. 3=Patient will improve strength/tolerance for activity to enable patient to perform ADL's. OT Education/Plan Problem List/Assessment Assessment: Impaired Self-Care Skills Discharge Recommendations Plan/Recommendations: Continue POC Treatment Plan/Plan of Care Patient would benefit from OT for education, treatment and training to promote independence in ADL's, mobility, safety and/or upper extremity function for ADL's. Plan of Care: ADL Retraining, Caregiver Training, Functional Mobility, Group Exercise/Act as Ind, UE Funct Exercise/Act Treatment Duration: Jul 20, 2022 Frequency: 3 times per week (3-5x/week) Estimated Hrs Per Day: .25 hour per day Agreement: Yes Rehab Potential: Fair Time/GCodes Start Time: 08:34 Stop Time: 09:04 Total Time Billed (hr/min): 30 Billed Treatment Time 1 visit ADL 2 (30 min) JULES CHIRINOS Jul 12, 2022 09:20
--- NOTE | 2022-07-12 09:28 | Physical Therapy Daily Note ---
PT Daily Note-Current Subjective Patient agrees to PT. Pain Section J - Health Conditions 1. Rarely or not at all 2. Occasionally 3. Frequently 4. Almost constantly 8. Unable to answer Pain Effect on Sleep: 1 Pain Interference with Therapy: 1 Pain Interference w/Day-to-Day: 1 Transfers SCALE: Activities may be completed with or without assistive devices. 6-Yrldqgunop-pqoesmc completes the activity by him/herself with no assistance from a helper. 5-Set-up or Clean-up Assistance-helper sets up or cleans up; patient completes activity. [place] assists only prior to or following the activity. 4-Supervision or Touching Assistance-helper provides verbal cues and/or touching/steadying and/or contact guard assistance as patient completes activity. Assistance may be provided throughout the activity or intermittently. 3-Partial/Moderate Assistance-helper does LESS THAN HALF the effort. [place] lifts, holds or supports trunk or limbs, but provides less than half the effort. 2-Substantial/Maximal Assistance-helper does MORE THAN HALF the effort. [place] lifts or holds trunk or limbs and provides more than half the effort. 5-Phrdncvzq-ijrsqs does ALL the effort. Patient does none of the effort to complete the activity. Or, the assistance of 2 or more helpers is required for the patient to complete the activity. If activity was not attempted, code reason: 7-Patient Refused. 9-Not Applicable-not attempted and the patient did not perform the activity before the current illness, exacerbation or injury. 10-Not Attempted due to Environmental Limitations-(lack of equipment, weather restraints, etc.). 88-Not Attempted due to Medical Conditions or Safety Concerns. Sit to Stand (QC): 4 Weight Bearing Right Lower Extremity: Right Weight Bearing/Tolerated Left Lower Extremity: Left Full Weight Bearing Gait Training Distance: 200' Walk 10 feet (QC): 4 Walk 50 ft with 2 Turns(QC): 4 Walk 150 ft (QC): 4 Gait Assistive Device: FWW slow, steady, slightly antalgic Exercises Supine Ex: Ankle pumps, Quad Set, Heel Slides Supine Reps: 12 (in recliner) Seated Therapy Exercises: Long arc quads, Hip flexion Seated Reps: 15 Assessment Patient progressing with treatment plan. Patient is SBA with all mobility and has improved with distance with gait training. PT to continue to increase activity as tolerated by patient. PT Sky Cap Goals Shelter Goals PT Sky Cap Goals Time Frame: Jul 14, 2022 Roll Left & Right (QC): 4 Sit to Lying (QC): 4 Lying-Sitting on Side/Bed(QC): 4 Sit to Stand (QC): 4 Chair/Bua-ei-Rshlq Xfer(QC): 4 Toilet Transfer (QC): 4 Car Transfer (QC): 4 Does the Patient Walk: Yes Walk 10 feet (QC): 4 Walk 50ft with 2 Turns (QC): 3 Walk 150 ft (QC): 3 1 Step (curb) (QC): 3 4 Steps (QC): 3 12 Steps (QC): 3 PT Plan Treatment/Plan Treatment Plan: Continue Plan of Care Treatment Plan: Bed Mobility, Education, Functional Activity Chriss, Functional Strength, Group Therapy, Gait, Safety, Therapeutic Exercise, Transfers Treatment Duration: Aug 11, 2022 Frequency: 11 times per week Estimated Hrs Per Day: .25 hour per day Patient and/or Family Agrees t: Yes Time Time In: 750 Time Out: 821 Total Billed Treatment Time: 31 Total Billed Treatment 1 visit EX 13 min GT 18 min ROMA BARBOSA PT Jul 12, 2022 09:28
--- NOTE | 2022-07-12 14:36 | Physical Therapy Daily Note ---
PT Daily Note-Current Subjective Patient in recliner with family in room pre-tx, reports pain 4/10 R anterior hip, agrees to PT. Pain Numeric Pain Scale: 4 Location: Anterior Location Body Site: Hip (Right hip) Pain Description: Ache Section J - Health Conditions 1. Rarely or not at all 2. Occasionally 3. Frequently 4. Almost constantly 8. Unable to answer Pain Effect on Sleep: 1 Pain Interference with Therapy: 1 Pain Interference w/Day-to-Day: 1 Appearance Patient in recliner with nurse call, tray, water, phone, and all other needs met. Mental Status Patient Orientation: Person, Place, Situation Transfers SCALE: Activities may be completed with or without assistive devices. 7-Ingknqfwra-rduojqo completes the activity by him/herself with no assistance from a helper. 5-Set-up or Clean-up Assistance-helper sets up or cleans up; patient completes activity. [place] assists only prior to or following the activity. 4-Supervision or Touching Assistance-helper provides verbal cues and/or touching/steadying and/or contact guard assistance as patient completes activity. Assistance may be provided throughout the activity or intermittently. 3-Partial/Moderate Assistance-helper does LESS THAN HALF the effort. [place] lifts, holds or supports trunk or limbs, but provides less than half the effort. 2-Substantial/Maximal Assistance-helper does MORE THAN HALF the effort. [place] lifts or holds trunk or limbs and provides more than half the effort. 1-Dgttdqjqy-ldrqpn does ALL the effort. Patient does none of the effort to complete the activity. Or, the assistance of 2 or more helpers is required for the patient to complete the activity. If activity was not attempted, code reason: 7-Patient Refused. 9-Not Applicable-not attempted and the patient did not perform the activity before the current illness, exacerbation or injury. 10-Not Attempted due to Environmental Limitations-(lack of equipment, weather restraints, etc.). 88-Not Attempted due to Medical Conditions or Safety Concerns. Sit to Stand (QC): 4 SBA Weight Bearing Right Lower Extremity: Right Weight Bearing/Tolerated Left Lower Extremity: Left Full Weight Bearing Gait Training Does the Patient Walk?: Yes Distance: 150' Walk 10 feet (QC): 4 Walk 50 ft with 2 Turns(QC): 4 Walk 150 ft (QC): 4 Gait Persons Needed: 1 Gait Assistive Device: FWW Patient ambulates slowly needing standing breaks due to SOB due to A-fib, reciprocal step through pattern getting better, decreased foot clearance but continues to improve, standing posture is also improving while focusing to look for during ambulation. Exercises Seated Therapy Exercises: Ankle pumps, Long arc quads, Hip abd/add (Abduct manual resistance, Adduct pressing into a pillow) Seated Reps: 20 Treatments Gait Training, LE Strengthening Assessment Current Status: Fair Progress Patient needing several breaks during ambulation due to SOB due to A-fib. Patient challenges herself to do more each day, but needs some verbal cueing to stand up straight/ look forward when walking and use LE more than using UE to lean on the walker. PT Longterm Goals Longterm Goals PT Vacuum Repairer Goals Time Frame: Jul 14, 2022 Roll Left & Right (QC): 4 Sit to Lying (QC): 4 Lying-Sitting on Side/Bed(QC): 4 Sit to Stand (QC): 4 Chair/Bsd-vn-Knykn Xfer(QC): 4 Toilet Transfer (QC): 4 Car Transfer (QC): 4 Does the Patient Walk: Yes Walk 10 feet (QC): 4 Walk 50ft with 2 Turns (QC): 3 Walk 150 ft (QC): 3 1 Step (curb) (QC): 3 4 Steps (QC): 3 12 Steps (QC): 3 PT Plan Problem List Problem List: Activity Tolerance, Functional Strength, Safety, Balance, Gait, Transfer, Bed Mobility, ROM Treatment/Plan Treatment Plan: Continue Plan of Care Treatment Plan: Bed Mobility, Education, Functional Activity Chriss, Functional Strength, Group Therapy, Gait, Safety, Therapeutic Exercise, Transfers Treatment Duration: Aug 11, 2022 Frequency: 11 times per week Estimated Hrs Per Day: .25 hour per day Patient and/or Family Agrees t: Yes Safety Risks/Education Patient Education: Gait Training, Transfer Techniques, Correct Positioning, Safety Issues Teaching Recipient: Patient Teaching Methods: Demonstration, Discussion Response to Teaching: Reinforcement Needed Time Time In: 1342 Time Out: 1411 Total Billed Treatment Time: 29 Total Billed Treatment 1 visit GT 15min EX 14min ROMA BARBOSA PT Jul 12, 2022 14:36
[2022-07-12] MEDS: FERROUS SULF 325 MG (IRON) TAB PO SCH (17:10)
[2022-07-12] MEDS: RIVAROXABAN 20 MG TABLET (XARELTO) PO SCH (17:10)
--- NOTE | 2022-07-12 17:49 | Progress Note ---
Subjective Subjective/Events-last exam Patient is feeling good. working with PT. Tolerating PO diet. BM today Review of Systems Pulmonary: No Dyspnea, No Cough Cardiovascular: No: Chest Pain, Palpitations Gastrointestinal: No: Nausea, Vomiting, Abdominal Pain, Constipation Genitourinary: No Dysuria, No Frequency Neurological: Weakness, Incoordination Objective Exam Last Set of Vital Signs Vital Signs Date Time Temp Pulse Resp B/P (MAP) Pulse Ox O2 Delivery O2 Flow Rate FiO2 07/12/22 16:00 36.4 94 20 113/59 (77) 96 Room Air 07/10/22 19:42 0.00 0.00 07/09/22 03:34 21 Capillary Refill : I&O Intake and Output 07/12/22 00:00 Intake Total 1820 ml Balance 1820 ml Intake Oral 1820 ml # Voids 5 # Bowel Movements 2 General: Alert, Oriented X3, No Acute Distress Lungs: Clear to Auscultation, Normal Air Movement Heart: Regular Rate, No Murmurs Abdomen: Normal Bowel Sounds, Soft, No Tenderness, No Masses Extremities: Other (mild swelling present, compression stockings on) Neuro: Normal Speech, Cranial Nerves 3-12 NL Psych/Mental Status: Mental Status NL, Mood NL Results/Procedures Lab Laboratory Tests 07/12/22 05:05: White Blood Count 12.7H, Red Blood Count 2.94L, Hemoglobin 9.3L, Hematocrit 28L, Mean Corpuscular Volume 97, Mean Corpuscular Hemoglobin 32, Mean Corpuscular Hemoglobin Concent 33, Red Cell Distribution Width 17.2H, Platelet Count 269, Mean Platelet Volume 9.7, Immature Granulocyte % (Auto) 1, Neutrophils (%) (Auto) 71, Lymphocytes (%) (Auto) 16, Monocytes (%) (Auto) 10, Eosinophils (%) (Auto) 2, Basophils (%) (Auto) 0, Neutrophils # (Auto) 9.0H, Lymphocytes # (Auto) 2.0, Monocytes # (Auto) 1.2H, Eosinophils # (Auto) 0.2, Basophils # (Auto) 0.1, Immature Granulocyte # (Auto) 0.1, Sodium Level 135, Potassium Level 4.0, Chloride Level 102, Carbon Dioxide Level 26, Anion Gap 7, Blood Urea Nitrogen 17, Creatinine 0.70, Estimat Glomerular Filtration Rate 90, BUN/Creatinine Ratio 24, Glucose Level 96, Calcium Level 8.3L, Corrected Calcium 9.3, Total Bilirubin 1.6H, Aspartate Amino Transf (AST/SGOT) 17, Alanine Aminotransferase (ALT/SGPT) 14, Alkaline Phosphatase 43, Total Protein 5.2L, Albumin 2.8L Microbiology 07/05/22 MRSA Screen - Final, Complete MRSA not isolated Assessment/Plan Assessment/Plan (1) Intertrochanteric fracture Status: Acute Assessment & Plan: 07/09: Managed by Ortho, OT ordered today, evaluation for inpt rehab ongoing 07/10: Waiting for IRF determination, Discussed SNF vs 07/12: Waiting on insurance for IRF, patient would greatly benefit is a good candidate to get more independent Qualifiers: Qualified Codes: S72.141A - Displaced intertrochanteric fracture of right femur, initial encounter for closed fracture (2) Afib Status: Chronic Assessment & Plan: 07/09: Rate controlled, on OAC Qualifiers: Qualified Codes: I48.21 - Permanent atrial fibrillation (3) Hypothyroidism Status: Chronic Assessment & Plan: 07/09: continue home meds Qualifiers: Qualified Codes: E03.9 - Hypothyroidism, unspecified (4) HTN (hypertension) Status: Chronic Assessment & Plan: 07/09: Controlled, continue home meds Qualifiers: Qualified Codes: I10 - Essential (primary) hypertension (5) HLD (hyperlipidemia) Status: Chronic Assessment & Plan: - Continue home meds, statin Qualifiers: Qualified Codes: E78.2 - Mixed hyperlipidemia Clinical Quality Measures DVT/VTE Risk/Contraindication: Contraindications-Pharm: Other *list below* Other: surgery JANNET WATTS MD Jul 12, 2022 17:49
[2022-07-12] MEDS: VITAMIN D3 25 MCG (1,000 UNITS) TABLET PO SCH (20:26)
[2022-07-12] MEDS: meTOproloL SUCCINATE 50 MG (TOPROL XL) TAB PO SCH (20:26)
[2022-07-13 03:31] VITALS: BP 117/55
[2022-07-13 05:35] LABS: BASOPHILS # (AUTO) 0.1 10^3/uL (0.0-0.1); BASOPHILS % (AUTO) 0 % (0-10); EOSINOPHILS # (AUTO) 0.2 10^3/uL (0.0-0.3); EOSINOPHILS % (AUTO) 2 % (0-10); HEMATOCRIT 29 % (35-52); HEMOGLOBIN 9.2 g/dL (11.5-16.0); LYMPHOCYTES # (AUTO) 1.9 10^3/uL (1.0-4.0); LYMPHOCYTES % (AUTO) 16 % (12-44); MEAN CORPUSCULAR HEMOGLOBIN 31 pg (25-34); MEAN CORPUSCULAR HGB CONC 32 g/dL (32-36); MEAN CORPUSCULAR VOLUME 96 fL (80-99); MEAN PLATELET VOLUME 9.4 fL (9.0-12.2); MONOCYTES # (AUTO) 1.1 10^3/uL (0.0-1.0); MONOCYTES % (AUTO) 9 % (0-12); NEUTROPHILS # (AUTO) 8.8 10^3/uL (1.8-7.8); NEUTROPHILS % (AUTO) 72 % (42-75); PLATELET COUNT 306 10^3/uL (130-400); WHITE BLOOD COUNT 12.2 10^3/uL (4.3-11.0)
[2022-07-13 05:54] LABS: ALBUMIN 2.7 GM/DL (3.2-4.5); POTASSIUM 3.8 MMOL/L (3.6-5.0)
[2022-07-13 05:55] LABS: CALCIUM 8.3 MG/DL (8.5-10.1)
[2022-07-13 05:57] LABS: TOTAL PROTEIN 5.2 GM/DL (6.4-8.2)
[2022-07-13 05:58] LABS: BILIRUBIN,TOTAL 1.6 MG/DL (0.1-1.0)
[2022-07-13 06:00] LABS: CREATININE SERUM 0.7 MG/DL (0.60-1.30)
[2022-07-13] MEDS: LEVOTHYROXINE 112 MCG (LEVOTHROID) TAB PO SCH (06:05)
[2022-07-13] MEDS: LEVOTHYROXINE 25 MCG (LEVOTHROID) TAB PO SCH (06:05)
--- NOTE | 2022-07-13 07:02 | Progress Note ---
Standard Progress Note Progress Notes/Assess & Plan Date Seen by a Provider: Jul 13, 2022 Time Seen by a Provider: 07:01 Progress/Assessment & Plan no complaints Vital Signs Date Time Temp Pulse Resp B/P (MAP) Pulse Ox O2 Delivery O2 Flow Rate FiO2 07/07/22 08:21 36.7 79 18 129/87 (101) 91 Room Air 07/07/22 07:00 94 07/07/22 03:53 36.0 67 16 115/63 (80) 95 Room Air 07/07/22 01:00 94 07/07/22 00:00 36.2 101 16 137/80 (99) 94 Room Air 07/06/22 20:30 36.9 99 18 133/60 (84) 97 Nasal Cannula 1.00 07/06/22 20:30 97 Nasal Cannula 1.00 07/06/22 19:00 121 07/06/22 15:54 Room Air 07/06/22 15:50 36.3 14 151/84 (106) 93 Room Air 07/06/22 15:40 OxyMask 2.00 07/06/22 15:40 14 163/95 (117) 92 Room Air 07/06/22 15:30 14 153/97 (115) 99 OxyMask 2.00 07/06/22 15:25 OxyMask 4.00 07/06/22 15:20 14 135/74 (94) 100 OxyMask 4.00 07/06/22 15:10 36.6 16 109/73 (85) 99 OxyMask 6.00 07/06/22 15:10 OxyMask 6.00 07/06/22 13:00 103 07/06/22 12:07 37.1 83 18 137/88 (104) 93 Room Air I & O 07/07/22 06:59 Intake Total 610 ml Output Total 1380 ml Balance -770 ml Laboratory Tests Test 07/07/22 05:28 Range/Units White Blood Count 14.1 H 4.3-11.0 10^3/uL Red Blood Count 3.45 L 3.80-5.11 10^6/uL Hemoglobin 10.9 L 11.5-16.0 g/dL Hematocrit 33 L 35-52 % Mean Corpuscular Volume 95 80-99 fL Mean Corpuscular Hemoglobin 32 25-34 pg Mean Corpuscular Hemoglobin Concent 33 32-36 g/dL Red Cell Distribution Width 15.9 H 10.0-14.5 % Platelet Count 204 130-400 10^3/uL Mean Platelet Volume 9.8 9.0-12.2 fL Immature Granulocyte % (Auto) 1 % Neutrophils (%) (Auto) 88 H 42-75 % Lymphocytes (%) (Auto) 8 L 12-44 % Monocytes (%) (Auto) 4 0-12 % Eosinophils (%) (Auto) 0 0-10 % Basophils (%) (Auto) 0 0-10 % Neutrophils # (Auto) 12.5 H 1.8-7.8 10^3/uL Lymphocytes # (Auto) 1.1 1.0-4.0 10^3/uL Monocytes # (Auto) 0.5 0.0-1.0 10^3/uL Eosinophils # (Auto) 0.0 0.0-0.3 10^3/uL Basophils # (Auto) 0.0 0.0-0.1 10^3/uL Immature Granulocyte # (Auto) 0.1 0.0-0.1 10^3/uL Neutrophils % (Manual) 87 % Lymphocytes % (Manual) 7 % Monocytes % (Manual) 3 % Band Neutrophils 3 % Platelet Estimate NORMAL Poikilocytosis SLIGHT Anisocytosis SLIGHT Macrocytosis SLIGHT Elliptocytes SLIGHT Sodium Level 131 L 135-145 MMOL/L Potassium Level 4.3 3.6-5.0 MMOL/L Chloride Level 100 98-107 MMOL/L Carbon Dioxide Level 24 21-32 MMOL/L Anion Gap 7 5-14 MMOL/L Blood Urea Nitrogen 11 7-18 MG/DL Creatinine 0.75 0.60-1.30 MG/DL Estimat Glomerular Filtration Rate 82 BUN/Creatinine Ratio 15 Glucose Level 162 H 70-105 MG/DL Calcium Level 8.4 L 8.5-10.1 MG/DL Corrected Calcium 9.2 8.5-10.1 MG/DL Total Bilirubin 1.1 H 0.1-1.0 MG/DL Aspartate Amino Transf (AST/SGOT) 22 5-34 U/L Alanine Aminotransferase (ALT/SGPT) 15 0-55 U/L Alkaline Phosphatase 43 40-136 U/L Total Protein 5.9 L 6.4-8.2 GM/DL Albumin 3.0 L 3.2-4.5 GM/DL RLE--dressing intact intact DF and PF of toes and ankle intact sensation to light touch throughout 2 plus DP pulse with brisk cap refill s/p R hip IM keyonna PT/OT IRU Final Diagnosis no complaints Vital Signs Date Time Temp Pulse Resp B/P (MAP) Pulse Ox O2 Delivery O2 Flow Rate FiO2 07/13/22 03:31 36.7 96 18 117/55 (75) 93 Room Air 07/12/22 23:42 36.3 77 18 98/59 (72) 94 Room Air 07/12/22 23:02 Room Air 07/12/22 22:56 37.4 96 96 21 07/12/22 20:00 Room Air 07/12/22 19:27 37.4 90 20 129/58 (81) 96 Room Air 07/12/22 16:00 36.4 94 20 113/59 (77) 96 Room Air 07/12/22 11:52 36.6 65 18 125/68 (87) 95 Room Air 07/12/22 08:16 36.6 62 18 124/63 (83) 96 Room Air 07/12/22 08:10 Room Air I & O 07/13/22 07:00 Intake Total 1480 ml Balance 1480 ml Laboratory Tests Test 07/13/22 05:20 Range/Units White Blood Count 12.2 H 4.3-11.0 10^3/uL Red Blood Count 2.96 L 3.80-5.11 10^6/uL Hemoglobin 9.2 L 11.5-16.0 g/dL Hematocrit 29 L 35-52 % Mean Corpuscular Volume 96 80-99 fL Mean Corpuscular Hemoglobin 31 25-34 pg Mean Corpuscular Hemoglobin Concent 32 32-36 g/dL Red Cell Distribution Width 17.2 H 10.0-14.5 % Platelet Count 306 130-400 10^3/uL Mean Platelet Volume 9.4 9.0-12.2 fL Immature Granulocyte % (Auto) 1 % Neutrophils (%) (Auto) 72 42-75 % Lymphocytes (%) (Auto) 16 12-44 % Monocytes (%) (Auto) 9 0-12 % Eosinophils (%) (Auto) 2 0-10 % Basophils (%) (Auto) 0 0-10 % Neutrophils # (Auto) 8.8 H 1.8-7.8 10^3/uL Lymphocytes # (Auto) 1.9 1.0-4.0 10^3/uL Monocytes # (Auto) 1.1 H 0.0-1.0 10^3/uL Eosinophils # (Auto) 0.2 0.0-0.3 10^3/uL Basophils # (Auto) 0.1 0.0-0.1 10^3/uL Immature Granulocyte # (Auto) 0.1 0.0-0.1 10^3/uL Sodium Level 136 135-145 MMOL/L Potassium Level 3.8 3.6-5.0 MMOL/L Chloride Level 102 98-107 MMOL/L Carbon Dioxide Level 27 21-32 MMOL/L Anion Gap 7 5-14 MMOL/L Blood Urea Nitrogen 17 7-18 MG/DL Creatinine 0.70 0.60-1.30 MG/DL Estimat Glomerular Filtration Rate 90 BUN/Creatinine Ratio 24 Glucose Level 89 70-105 MG/DL Calcium Level 8.3 L 8.5-10.1 MG/DL Corrected Calcium 9.3 8.5-10.1 MG/DL Total Bilirubin 1.6 H 0.1-1.0 MG/DL Aspartate Amino Transf (AST/SGOT) 17 5-34 U/L Alanine Aminotransferase (ALT/SGPT) 14 0-55 U/L Alkaline Phosphatase 43 40-136 U/L Total Protein 5.2 L 6.4-8.2 GM/DL Albumin 2.7 L 3.2-4.5 GM/DL R hip dressing intact no calf tenderness neg Wood's s/p R hip IM keyonna continue PT/OT CALDERON MCCALL MD Jul 13, 2022 07:02
[2022-07-13 08:00] VITALS: BP 130/85
[2022-07-13] MEDS: AtorvaSTATin TABLET 10 MG TABLET PO SCH (09:15)
[2022-07-13] MEDS: LOSARTAN 50 MG (COZAAR) TAB PO SCH (09:15)
[2022-07-13] MEDS: oxyCODONE/APAP 5/325MG (PERCOCET 5) TABLET PO PRN ×2 (09:17→21:21)
[2022-07-13] MEDS: DOCUSATE SODIUM 100 MG (COLACE) CAP PO SCH ×2 (09:20→21:22)
[2022-07-13] MEDS: SENNOSIDES 8.6 MG (SENOKOT) TAB PO SCH ×2 (09:20→21:22)
--- NOTE | 2022-07-13 09:48 | Physical Therapy Daily Note ---
PT Daily Note-Current Subjective Patient just complete with OT. Agrees to PT. Pain Numeric Pain Scale: 4 Location: Right Location Body Site: Hip Pain Description: Acute Section J - Health Conditions 1. Rarely or not at all 2. Occasionally 3. Frequently 4. Almost constantly 8. Unable to answer Pain Effect on Sleep: 1 Pain Interference with Therapy: 1 Pain Interference w/Day-to-Day: 1 Mental Status Patient Orientation: Normal For Age Transfers SCALE: Activities may be completed with or without assistive devices. 2-Sogktpczce-shuqwim completes the activity by him/herself with no assistance from a helper. 5-Set-up or Clean-up Assistance-helper sets up or cleans up; patient completes activity. [place] assists only prior to or following the activity. 4-Supervision or Touching Assistance-helper provides verbal cues and/or touching/steadying and/or contact guard assistance as patient completes activity. Assistance may be provided throughout the activity or intermittently. 3-Partial/Moderate Assistance-helper does LESS THAN HALF the effort. [place] lifts, holds or supports trunk or limbs, but provides less than half the effort. 2-Substantial/Maximal Assistance-helper does MORE THAN HALF the effort. [place] lifts or holds trunk or limbs and provides more than half the effort. 0-Ijmjzyuqn-fkhssj does ALL the effort. Patient does none of the effort to c omplete the activity. Or, the assistance of 2 or more helpers is required for the patient to complete the activity. If activity was not attempted, code reason: 7-Patient Refused. 9-Not Applicable-not attempted and the patient did not perform the activity before the current illness, exacerbation or injury. 10-Not Attempted due to Environmental Limitations-(lack of equipment, weather restraints, etc.). 88-Not Attempted due to Medical Conditions or Safety Concerns. Sit to Stand (QC): 4 (SBA) Weight Bearing Right Lower Extremity: Right Weight Bearing/Tolerated Left Lower Extremity: Left Full Weight Bearing Gait Training Distance: 225' Walk 10 feet (QC): 4 (SBA) Walk 50 ft with 2 Turns(QC): 4 (SBA) Walk 150 ft (QC): 4 (SBA) Gait Assistive Device: FWW slow, antalgic, reciprocal pattern Exercises Seated Therapy Exercises: Ankle pumps, Long arc quads, Hip flexion, Glut set Seated Reps: 15 Assessment Patient requires time to complete all functional tasks. Patient remains up in recliner with needs met. PT educated patient and daughter on performing exercises PRN. Both voice understanding. PT Penitentiary Goals Baggage Checker Goals PT Baggage Checker Goals Time Frame: Jul 14, 2022 Roll Left & Right (QC): 4 Sit to Lying (QC): 4 Lying-Sitting on Side/Bed(QC): 4 Sit to Stand (QC): 4 Chair/Uqg-my-Kcgfg Xfer(QC): 4 Toilet Transfer (QC): 4 Car Transfer (QC): 4 Does the Patient Walk: Yes Walk 10 feet (QC): 4 Walk 50ft with 2 Turns (QC): 3 Walk 150 ft (QC): 3 1 Step (curb) (QC): 3 4 Steps (QC): 3 12 Steps (QC): 3 PT Plan Treatment/Plan Treatment Plan: Continue Plan of Care Treatment Plan: Bed Mobility, Education, Functional Activity Chriss, Functional Strength, Group Therapy, Gait, Safety, Therapeutic Exercise, Transfers Treatment Duration: Aug 11, 2022 Frequency: 11 times per week Estimated Hrs Per Day: .25 hour per day Patient and/or Family Agrees t: Yes Time Time In: 917 Time Out: 940 Total Billed Treatment Time: 23 Total Billed Treatment 1 visit EX 8 min GT 15 min ROMA BARBOSA PT Jul 13, 2022 09:48
--- NOTE | 2022-07-13 09:50 | Occupational Ther Daily Note ---
OT Current Status-Daily Note Subjective Pt in recliner, alert. Pt agrees to therapy. C/o no pain. Mental Status/Objective Patient Orientation: Person, Place, Time, Situation ADL-Treatment Pt completed upper body dressing after set up. Required the use of dressing stick to lace L/R LE into underwear/pants by self after set up. Pt transferred from sitting to standing at recliner with FWW, SBA to hike underwear/pants over hips. Used dressing stick to don shoes on L foot and required max A to don shoe on R foot. Pt sitting at recliner at end of session. Phone/call light in reach. All needs met in room. Therapy Code Descriptions/Definitions Functional [place] Measure: 0=Not Assessed/NA 4=Minimal Assistance 1=Total Assistance 5=Supervision or Setup 2=Maximal Assistance 6=Modified [place] 3=Moderate Assistance 7=Complete IndependenceSCALE: Activities may be completed with or without assistive devices. 2-Zfsizehxby-rvomexy completes the activity by him/herself with no assistance from a helper. 5-Set-up or Clean-up Assistance-helper sets up or cleans up; patient completes a ctivity. [place] assists only prior to or following the activity. 4-Supervision or Touching Assistance-helper provides verbal cues and/or touching/steadying and/or contact guard assistance as patient completes activity. Assistance may be provided throughout the activity or intermittently. 3-Partial/Moderate Assistance-helper does LESS THAN HALF the effort. [place] lifts, holds or supports trunk or limbs, but provides less than half the effort. 2-Substantial/Maximal Assistance-helper does MORE THAN HALF the effort. [place] lifts or holds trunk or limbs and provides more than half the effort. 6-Ucikvdwdk-qugjmq does ALL the effort. Patient does none of the effort to complete the activity. Or, the assistance of 2 or more helpers is required for the patient to complete the activity. If activity was not attempted, code reason: 7-Patient Refused. 9-Not Applicable-not attempted and the patient did not perform the activity before the current illness, exacerbation or injury. 10-Not Attempted due to Environmental Limitations-(lack of equipment, weather restraints, etc.). 88-Not Attempted due to Medical Conditions or Safety Concerns. Upper Body Dressing (QC): 5 Lower Body Dressing (QC): 4 (SBA) On/Off Footwear: 3 (mod A) OT Wearing Apparel Presser Goals [facility] Goals Time Frame: Jul 20, 2022 Eating (QC): 6 Oral Hygiene (QC): 6 Toileting Hygiene (QC): 6 Shower/Bathe Self (QC): 5 Upper Body Dressing (QC): 6 Lower Body Dressing (QC): 6 On/Off Footwear (QC): 6 Additional Goals: 1-Demonstrate ADL Tasks, 2-Verbalize Understanding, 3- ImproveStrength/Chriss 1=Demonstrate adherence to instructed precautions during ADL tasks. 2=Patient will verbalize/demonstrate understanding of assistive devices/modifications for ADL. 3=Patient will improve strength/tolerance for activity to enable patient to perform ADL's. OT Education/Plan Problem List/Assessment Assessment: Impaired Funct Balance, Impaired Self-Care Skills Discharge Recommendations Plan/Recommendations: Continue POC Treatment Plan/Plan of Care Patient would benefit from OT for education, treatment and training to promote independence in ADL's, mobility, safety and/or upper extremity function for A DL's. Plan of Care: ADL Retraining, Caregiver Training, Functional Mobility, Group Exercise/Act as Ind, UE Funct Exercise/Act Treatment Duration: Jul 20, 2022 Frequency: 3 times per week (3-5x/week) Estimated Hrs Per Day: .25 hour per day Agreement: Yes Rehab Potential: Fair Time/GCodes Start Time: 09:58 Stop Time: 09:18 Total Time Billed (hr/min): 20 Billed Treatment Time 1 visit, ADL 1 (20 min) JULES CHIRINOS Jul 13, 2022 09:50
[2022-07-13 12:00] VITALS: BP 105/54
[2022-07-13] MEDS ORDERED: FUROSEMIDE 40 MG (LASIX) TAB PO PRN (12:45)
--- NOTE | 2022-07-13 13:28 | Physical Therapy Daily Note ---
PT Daily Note-Current Subjective Patient in recliner pre-tx, reports no pain but just a little discomfort in anterior R hip, agrees to PT. Pain Section J - Health Conditions 1. Rarely or not at all 2. Occasionally 3. Frequently 4. Almost constantly 8. Unable to answer Pain Effect on Sleep: 1 Pain Interference with Therapy: 1 Pain Interference w/Day-to-Day: 1 Appearance Patient in recliner post-tx with nurse call, phone, tray, and all needs met. Mental Status Patient Orientation: Person, Place, Situation Transfers SCALE: Activities may be completed with or without assistive devices. 5-Vdnesazuzc-porzgil completes the activity by him/herself with no assistance from a helper. 5-Set-up or Clean-up Assistance-helper sets up or cleans up; patient completes activity. [place] assists only prior to or following the activity. 4-Supervision or Touching Assistance-helper provides verbal cues and/or touching/steadying and/or contact guard assistance as patient completes activity. Assistance may be provided throughout the activity or intermittently. 3-Partial/Moderate Assistance-helper does LESS THAN HALF the effort. [place] lifts, holds or supports trunk or limbs, but provides less than half the effort. 2-Substantial/Maximal Assistance-helper does MORE THAN HALF the effort. [place] lifts or holds trunk or limbs and provides more than half the effort. 6-Lowcihlyl-ylddvp does ALL the effort. Patient does none of the effort to complete the activity. Or, the assistance of 2 or more helpers is required for the patient to complete the activity. If activity was not attempted, code reason: 7-Patient Refused. 9-Not Applicable-not attempted and the patient did not perform the activity be fore the current illness, exacerbation or injury. 10-Not Attempted due to Environmental Limitations-(lack of equipment, weather restraints, etc.). 88-Not Attempted due to Medical Conditions or Safety Concerns. Sit to Stand (QC): 4 SBA Weight Bearing Right Lower Extremity: Right Weight Bearing/Tolerated Left Lower Extremity: Left Full Weight Bearing Gait Training Distance: 200' Walk 10 feet (QC): 4 Walk 50 ft with 2 Turns(QC): 4 Walk 150 ft (QC): 4 Gait Persons Needed: 1 Gait Assistive Device: FWW SBA, patient needs frequent standing breaks due to fatigue and decreased endurance due to A-fib. Patient improving on step length, foot clearance, gait speed, standing up straight and looking forward during ambulation. Wheelchair Training Does the Pt Use a Wheelchair?: No Exercises Seated Therapy Exercises: Ankle pumps (20 reps bilaterally), Long arc quads (20 reps each leg), Hip flexion, Hip abd/add (15 reps manual resistance for abd/add), Glut set (15 reps) Treatments Gait Training, LE Strengthening Assessment Current Status: Fair Progress Patient able to walk farther today, but still needs frequent standing breaks due to fatigue and decreased endurance due to A-fib. Patient strength, gait, and transfers continue to improve. PT Retirement Goals [employer] Goals PT Retirement Goals Time Frame: Jul 14, 2022 Roll Left & Right (QC): 4 Sit to Lying (QC): 4 Lying-Sitting on Side/Bed(QC): 4 Sit to Stand (QC): 4 Chair/Qxx-ux-Avbzt Xfer(QC): 4 Toilet Transfer (QC): 4 Car Transfer (QC): 4 Does the Patient Walk: Yes Walk 10 feet (QC): 4 Walk 50ft with 2 Turns (QC): 3 Walk 150 ft (QC): 3 1 Step (curb) (QC): 3 4 Steps (QC): 3 12 Steps (QC): 3 PT Plan Problem List Problem List: Activity Tolerance, Functional Strength, Safety, Balance, Gait, Transfer, Bed Mobility, ROM Treatment/Plan Treatment Plan: Continue Plan of Care Treatment Plan: Bed Mobility, Education, Functional Activity Chriss, Functional Strength, Group Therapy, Gait, Safety, Therapeutic Exercise, Transfers Treatment Duration: Aug 11, 2022 Frequency: 11 times per week Estimated Hrs Per Day: .25 hour per day Patient and/or Family Agrees t: Yes Safety Risks/Education Patient Education: Gait Training, Correct Positioning, Safety Issues Teaching Recipient: Patient Teaching Methods: Demonstration, Discussion Response to Teaching: Reinforcement Needed Time Time In: 1250 Time Out: 1315 Total Billed Treatment Time: 25 Total Billed Treatment 1 visit GT 14min EX 11min ROMA BARBOSA PT Jul 13, 2022 13:28
--- NOTE | 2022-07-13 14:05 | Progress Note - Hospitalist ---
HILL DOMINGUEZ 07/13/22 1404: Subjective HPI/CC On Admission Date Seen by Provider: Jul 13, 2022 Time Seen by Provider: 14:00 Chief complaint: Right hip fracture HPI: This is a 76-year-old female clinic patient of [facility] who presents with right hip fracture. She tripped at home. Dr. Bell will perform repair. Subjective/Events-last exam Pt is resting in chair comfortably with family bedside. Pt states that she feels well and that she has had minimal leg pain. Pt has been able to ambulate with PT w/o issue. Pt is eating, voiding, and having BMs. Pt does note some P/O urinary retention, stating that she is able to void but that it takes her moving around on toilet to completely empty her bladder. Otherwise pt has no complaints. Denies nausea, vomiting, CP, SOA, abd pain, palpitations, and diarrhea. Review of Systems General: No Chills, No Night Sweats HEENT: No Head Aches, No Visual Changes Pulmonary: No Dyspnea, No Cough Cardiovascular: No: Chest Pain, Palpitations Gastrointestinal: No: Nausea, Vomiting Genitourinary: No Dysuria, No Frequency; Retention Musculoskeletal: No: neck pain, shoulder pain Neurological: No: Weakness, Numbness Objective Exam Vital Signs Vital Signs Date Time Temp Pulse Resp B/P (MAP) Pulse Ox O2 Delivery O2 Flow Rate FiO2 07/13/22 12:00 36.2 60 18 105/54 (71) 95 Room Air 07/12/22 22:56 21 07/10/22 19:42 0.00 0.00 Capillary Refill : General Appearance: No Apparent Distress, WD/WN, Obese HEENT: PERRL/EOMI, Moist Mucous Membranes Neck: Normal Inspection, Supple Respiratory: Chest Non Tender, Lungs Clear, Normal Breath Sounds, No Accessory Muscle Use Cardiovascular: Regular Rate, Rhythm, No Edema, No Gallop Gastrointestinal: No Pulsatile Mass, Non Tender, Soft Back: Normal Inspection, No CVA Tenderness Extremity: Normal Inspection, No Calf Tenderness, Other (bandage present on R hip ) Neurologic/Psychiatric: Alert, Oriented x3 Skin: Normal Color, Warm/Dry Lymphatic: No Adenopathy Results/Procedures Lab Laboratory Tests 07/13/22 05:20 Patient resulted labs reviewed. Imaging: Reviewed Imaging Films, Reviewed Imaging Report Assessment/Plan Assessment and Plan Assess & Plan/Chief Complaint 1. S/P Right hip intramedullary nail following R femur fx -completed by Dr. Bell on 07/06 2. Permanent Afib on Xarleto -controlled 3. Leukocytosis of unknown source -improved from yesterday, continue to monitor 4. Hypothyroidism -takes levothyroxine 5. HTN -controlled, followed by Dr. Barr 6. 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 Barr Plan: Pt's family working with [facility] to get pt admitted to inpatient rehab PT/OT Started back on HCTZ DC pending insurance approval of inpatient rehab Clinical Quality Measures DVT/VTE Risk/Contraindication: Contraindications-Pharm: Other *list below* Other: surgery SORAYA CASTRO DO 07/14/22 0533: Subjective Subjective/Events-last exam Patient doing really well Labs doing well Assessment/Plan Assessment and Plan Assess & Plan/Chief Complaint Continue therapy Supervisory-Addendum Brief Verification & Attestation Participated in pt care: history, MDM, physical Personally performed: exam, history, MDM, supervision of care Care discussed with: Medical Student Procedures: n/a Results interpretation: Verified all documentation Verification and Attestation of Medical Student E/M Service A medical student performed and documented this service in my presence. I reviewed and verified all information documented by the medical student and made modifications to such information, when appropriate. I personally performed the physical exam and medical decision making. Soraya Castro Jul 14, 2022,05:32 HILL DOMINGUEZ Jul 13, 2022 14:04 SORAYA CASTRO DO Jul 14, 2022 05:33
[2022-07-13 16:10] VITALS: BP 124/68
[2022-07-13] MEDS: RIVAROXABAN 20 MG TABLET (XARELTO) PO SCH (17:15)
[2022-07-13 19:40] VITALS: BP 116/48
[2022-07-13] MEDS: VITAMIN D3 25 MCG (1,000 UNITS) TABLET PO SCH (21:20)
[2022-07-13] MEDS: meTOproloL SUCCINATE 50 MG (TOPROL XL) TAB PO SCH (21:20)
[2022-07-14 00:14] VITALS: BP 104/55
[2022-07-14 04:00] VITALS: BP 108/66
[2022-07-14 06:02] LABS: BASOPHILS % (AUTO) 0 % (0-10); EOSINOPHILS # (AUTO) 0.2 10^3/uL (0.0-0.3); EOSINOPHILS % (AUTO) 2 % (0-10); HEMATOCRIT 29 % (35-52); HEMOGLOBIN 8.9 g/dL (11.5-16.0); LYMPHOCYTES # (AUTO) 2.1 10^3/uL (1.0-4.0); LYMPHOCYTES % (AUTO) 19 % (12-44); MEAN CORPUSCULAR HEMOGLOBIN 31 pg (25-34); MEAN CORPUSCULAR HGB CONC 31 g/dL (32-36); MEAN CORPUSCULAR VOLUME 100 fL (80-99); MEAN PLATELET VOLUME 9.2 fL (9.0-12.2); MONOCYTES # (AUTO) 1.1 10^3/uL (0.0-1.0); MONOCYTES % (AUTO) 10 % (0-12); NEUTROPHILS # (AUTO) 7.9 10^3/uL (1.8-7.8); NEUTROPHILS % (AUTO) 68 % (42-75); PLATELET COUNT 328 10^3/uL (130-400); WHITE BLOOD COUNT 11.6 10^3/uL (4.3-11.0)
[2022-07-14 06:13] LABS: ALBUMIN 2.7 GM/DL (3.2-4.5); POTASSIUM 3.6 MMOL/L (3.6-5.0)
[2022-07-14 06:14] LABS: CALCIUM 8.4 MG/DL (8.5-10.1)
[2022-07-14 06:15] LABS: TOTAL PROTEIN 5.1 GM/DL (6.4-8.2)
[2022-07-14 06:17] LABS: BILIRUBIN,TOTAL 1.9 MG/DL (0.1-1.0)
[2022-07-14 06:19] LABS: CREATININE SERUM 0.72 MG/DL (0.60-1.30)
[2022-07-14] MEDS: LEVOTHYROXINE 25 MCG (LEVOTHROID) TAB PO SCH (06:47)
[2022-07-14] MEDS: LEVOTHYROXINE 112 MCG (LEVOTHROID) TAB PO SCH (06:49)
[2022-07-14 07:28] VITALS: BP 123/74
--- NOTE | 2022-07-14 08:04 | Progress Note - Hospitalist ---
Subjective HPI/CC On Admission Date Seen by Provider: Jul 14, 2022 Time Seen by Provider: 11:00 Chief complaint: Right hip fracture HPI: This is a 76-year-old female clinic patient of [facility] who presents with right hip fracture. She tripped at home. Dr. Bell will perform repair. Subjective/Events-last exam Patient doing well No major issues Supportive care will continue Review of Systems Musculoskeletal: leg pain Objective Exam Vital Signs Vital Signs Date Time Temp Pulse Resp B/P (MAP) Pulse Ox O2 Delivery O2 Flow Rate FiO2 07/14/22 11:20 36.3 98 20 116/53 (74) 94 Room Air 07/14/22 08:00 0.00 07/12/22 22:56 21 Capillary Refill : General Appearance: No Apparent Distress, WD/WN, Chronically ill Respiratory: Lungs Clear, Normal Breath Sounds Cardiovascular: Regular Rate, Rhythm Neurologic/Psychiatric: Alert, Oriented x3, No Motor/Sensory Deficits, Normal Mood/Affect Results/Procedures Lab Laboratory Tests 07/14/22 05:30 Patient resulted labs reviewed. Imaging: Reviewed Imaging Films, Reviewed Imaging Report Assessment/Plan Assessment and Plan Assess & Plan/Chief Complaint Continue therapy Diagnosis/Problems Diagnosis/Problems (1) Intertrochanteric fracture Status: Acute Qualifiers: Encounter type: initial encounter Fracture type: closed Fracture alignment: displaced Laterality: right Qualified Codes: S72.141A - Displaced intertrochanteric fracture of right femur, initial encounter for closed fracture (2) Afib Status: Chronic Qualifiers: Atrial fibrillation type: permanent Qualified Codes: I48.21 - Permanent atrial fibrillation Clinical Quality Measures DVT/VTE Risk/Contraindication: Contraindications-Pharm: Other *list below* Other: surgery VIKRAM CASTRO DO Jul 14, 2022 08:04
[2022-07-14] MEDS: AtorvaSTATin TABLET 10 MG TABLET PO SCH (09:57)
[2022-07-14] MEDS: SENNOSIDES 8.6 MG (SENOKOT) TAB PO SCH ×2 (09:58→22:00)
[2022-07-14] MEDS: oxyCODONE/APAP 5/325MG (PERCOCET 5) TABLET PO PRN ×2 (09:58→23:18)
[2022-07-14] MEDS: LOSARTAN 50 MG (COZAAR) TAB PO SCH (09:58)
[2022-07-14] MEDS: DOCUSATE SODIUM 100 MG (COLACE) CAP PO SCH ×2 (09:59→23:21)
--- NOTE | 2022-07-14 10:41 | Physical Therapy Daily Note ---
PT Daily Note-Current Subjective Pt sitting up in chair with friend present at bedside. Agreeable to PT treatment. Rates R hip pain at 3/10 prior to ambulation. Pain Section J - Health Conditions 1. Rarely or not at all 2. Occasionally 3. Frequently 4. Almost constantly 8. Unable to answer Pain Effect on Sleep: 1 Pain Interference with Therapy: 1 Pain Interference w/Day-to-Day: 1 Appearance Pt sitting up in chair, call light, tray table and phone within reach. All needs met and friend present at bedside. Mental Status Patient Orientation: Person, Place, Situation Transfers SCALE: Activities may be completed with or without assistive devices. 8-Ydtwnbyist-oelteqf completes the activity by him/herself with no assistance from a helper. 5-Set-up or Clean-up Assistance-helper sets up or cleans up; patient completes activity. [place] assists only prior to or following the activity. 4-Supervision or Touching Assistance-helper provides verbal cues and/or touching/steadying and/or contact guard assistance as patient completes activity. Assistance may be provided throughout the activity or intermittently. 3-Partial/Moderate Assistance-helper does LESS THAN HALF the effort. [place] lifts, holds or supports trunk or limbs, but provides less than half the effort. 2-Substantial/Maximal Assistance-helper does MORE THAN HALF the effort. [place] lifts or holds trunk or limbs and provides more than half the effort. 2-Xaxijxbqb-qcfpha does ALL the effort. Patient does none of the effort to complete the activity. Or, the assistance of 2 or more helpers is required for the patient to complete the activity. If activity was not attempted, code reason: 7-Patient Refused. 9-Not Applicable-not attempted and the patient did not perform the activity before the current illness, exacerbation or injury. 10-Not Attempted due to Environmental Limitations-(lack of equipment, weather restraints, etc.). 88-Not Attempted due to Medical Conditions or Safety Concerns. Sit to Stand (QC): 4 Weight Bearing Right Lower Extremity: Right Weight Bearing/Tolerated Left Lower Extremity: Left Full Weight Bearing Gait Training Distance: 150' Gait Assistive Device: FWW Pt ambulates with step to pattern this date. Slow, steady gait sequence. Assessment Current Status: Good Progress Pt tolerated well, good steady gait sequence. PT Mcc Goals Mcc Goals PT Post Office Manager Goals Time Frame: Jul 14, 2022 Roll Left & Right (QC): 4 Sit to Lying (QC): 4 Lying-Sitting on Side/Bed(QC): 4 Sit to Stand (QC): 4 Chair/Njf-dz-Jwxhh Xfer(QC): 4 Toilet Transfer (QC): 4 Car Transfer (QC): 4 Does the Patient Walk: Yes Walk 10 feet (QC): 4 Walk 50ft with 2 Turns (QC): 3 Walk 150 ft (QC): 3 1 Step (curb) (QC): 3 4 Steps (QC): 3 12 Steps (QC): 3 PT Plan Problem List Problem List: Activity Tolerance, Functional Strength, Safety, Balance, Gait, Transfer, Bed Mobility, ROM Treatment/Plan Treatment Plan: Continue Plan of Care Treatment Plan: Bed Mobility, Education, Functional Activity Chriss, Functional Strength, Group Therapy, Gait, Safety, Therapeutic Exercise, Transfers Treatment Duration: Aug 11, 2022 Frequency: 11 times per week Estimated Hrs Per Day: .25 hour per day Patient and/or Family Agrees t: Yes Time Time In: 947 Time Out: 1010 Total Billed Treatment 1 visit GT (15') FA (8') ELVA STEVENSON PT Jul 14, 2022 10:41
[2022-07-14 11:20] VITALS: BP 116/53
[2022-07-14 15:19] VITALS: BP 99/54
[2022-07-14] MEDS: RIVAROXABAN 20 MG TABLET (XARELTO) PO SCH (17:34)
[2022-07-14] MEDS: FERROUS SULF 325 MG (IRON) TAB PO SCH (17:34)
[2022-07-14 19:10] VITALS: BP 108/61
[2022-07-14] MEDS: VITAMIN D3 25 MCG (1,000 UNITS) TABLET PO SCH (23:17)
[2022-07-14] MEDS: meTOproloL SUCCINATE 50 MG (TOPROL XL) TAB PO SCH (23:18)
[2022-07-15] VITALS (8 sets, daily range): BP systolic 102–137; BP diastolic 54–75
--- NOTE | 2022-07-15 06:25 | Progress Note - Hospitalist ---
Subjective HPI/CC On Admission Date Seen by Provider: Jul 15, 2022 Time Seen by Provider: 12:00 Chief complaint: Right hip fracture HPI: This is a 76-year-old female clinic patient of [facility] who presents with right hip fracture. She tripped at home. Dr. Bell will perform repair. Subjective/Events-last exam Patient doing well No problems reported Check meds and labs Review of Systems Musculoskeletal: leg pain Objective Exam Vital Signs Vital Signs Date Time Temp Pulse Resp B/P (MAP) Pulse Ox O2 Delivery O2 Flow Rate FiO2 07/15/22 11:48 36.6 64 18 104/60 (75) 95 Room Air 07/15/22 08:02 21 07/15/22 08:01 0.00 Capillary Refill : General Appearance: No Apparent Distress, WD/WN, Chronically ill Respiratory: Lungs Clear, Normal Breath Sounds Cardiovascular: Regular Rate, Rhythm Neurologic/Psychiatric: Alert, Oriented x3, No Motor/Sensory Deficits, Normal Mood/Affect Results/Procedures Lab Patient resulted labs reviewed. Imaging: Reviewed Imaging Films, Reviewed Imaging Report Assessment/Plan Assessment and Plan Assess & Plan/Chief Complaint Continue therapy Diagnosis/Problems Diagnosis/Problems (1) Intertrochanteric fracture Status: Acute Qualifiers: Encounter type: initial encounter Fracture type: closed Fracture alignment: displaced Laterality: right Qualified Codes: S72.141A - Displaced intertrochanteric fracture of right femur, initial encounter for closed fracture (2) Afib Status: Chronic Qualifiers: Atrial fibrillation type: permanent Qualified Codes: I48.21 - Permanent at rial fibrillation Clinical Quality Measures DVT/VTE Risk/Contraindication: Contraindications-Pharm: Other *list below* Other: surgery VIRKAM CASTRO DO Jul 15, 2022 06:25
[2022-07-15] MEDS: LEVOTHYROXINE 25 MCG (LEVOTHROID) TAB PO SCH (06:58)
[2022-07-15] MEDS: LEVOTHYROXINE 112 MCG (LEVOTHROID) TAB PO SCH (06:59)
[2022-07-15] MEDS: oxyCODONE/APAP 5/325MG (PERCOCET 5) TABLET PO PRN (09:40)
[2022-07-15] MEDS: LOSARTAN 50 MG (COZAAR) TAB PO SCH (09:41)
[2022-07-15] MEDS: AtorvaSTATin TABLET 10 MG TABLET PO SCH (09:41)
[2022-07-15] MEDS: DOCUSATE SODIUM 100 MG (COLACE) CAP PO SCH ×2 (09:44→20:26)
[2022-07-15] MEDS: SENNOSIDES 8.6 MG (SENOKOT) TAB PO SCH ×2 (09:45→20:26)
[2022-07-15] MEDS: RIVAROXABAN 20 MG TABLET (XARELTO) PO SCH (16:54)
[2022-07-15] MEDS: VITAMIN D3 25 MCG (1,000 UNITS) TABLET PO SCH (20:25)
[2022-07-15] MEDS: meTOproloL SUCCINATE 50 MG (TOPROL XL) TAB PO SCH (20:25)
[2022-07-16] MEDS: LEVOTHYROXINE 25 MCG (LEVOTHROID) TAB PO SCH (05:35)
[2022-07-16] MEDS: LEVOTHYROXINE 112 MCG (LEVOTHROID) TAB PO SCH (05:36)
--- NOTE | 2022-07-16 05:46 | Progress Note - Hospitalist ---
Subjective HPI/CC On Admission Date Seen by Provider: Jul 16, 2022 Time Seen by Provider: 09:00 Chief complaint: Right hip fracture HPI: This is a 76-year-old female clinic patient of [facility] who presents with right hip fracture. She tripped at home. Dr. Bell will perform repair. Objective Exam Vital Signs Vital Signs Date Time Temp Pulse Resp B/P (MAP) Pulse Ox O2 Delivery O2 Flow Rate FiO2 07/16/22 15:26 36.6 76 18 108/53 94 Room Air 0.00 07/15/22 08:02 21 Capillary Refill : Results/Procedures Lab Patient resulted labs reviewed. Imaging: Reviewed Imaging Films, Reviewed Imaging Report Assessment/Plan Assessment and Plan Assess & Plan/Chief Complaint Continue therapy Diagnosis/Problems Diagnosis/Problems (1) Intertrochanteric fracture Status: Acute Qualifiers: Encounter type: initial encounter Fracture type: closed Fracture alignment: displaced Laterality: right Qualified Codes: S72.141A - Displaced intertrochanteric fracture of right femur, initial encounter for closed fracture (2) Afib Status: Chronic Qualifiers: Atrial fibrillation type: permanent Qualified Codes: I48.21 - Permanent atrial fibrillation Clinical Quality Measures DVT/VTE Risk/Contraindication: Contraindications-Pharm: Other *list below* Other: surgery VIKRAM CASTRO DO Jul 16, 2022 05:46
[2022-07-16 08:14] VITALS: BP 108/53
--- NOTE | 2022-07-16 09:12 | Occupational Ther Daily Note ---
OT Current Status-Daily Note Subjective Pt in recliner, alert. Pt agrees to therapy. Pt c/o minimal pain. Pain medication no given yet this morning per pt. Mental Status/Objective Patient Orientation: Person, Place, Time, Situation ADL-Treatment Pt donned shirt by self after set up. Pt used AE to don L/R socks. Pt was able to lift R LE independently today. Pt used dressing stick to lace L/R LE's into pants. Pt used FWW to transfer from sit to stand and hike pants over hips independently. Pt displayed better dynamic standing balance today. Pt sitting in recliner at end of session. Call light/phone in reach. All needs met in room. Therapy Code Descriptions/Definitions Functional Pierce Measure: 0=Not Assessed/NA 4=Minimal Assistance 1=Total Assistance 5=Supervision or Setup 2=Maximal Assistance 6=Modified [place] 3=Moderate Assistance 7=Complete IndependenceSCALE: Activities may be completed with or without assistive devices. 5-Lbmnzcqcms-vwhinkx completes the activity by him/herself with no assistance from a helper. 5-Set-up or Clean-up Assistance-helper sets up or cleans up; patient completes activity. [place] assists only prior to or following the activity. 4-Supervision or Touching Assistance-helper provides verbal cues and/or touching/steadying and/or contact guard assistance as patient completes activity. Assistance may be provided throughout the activity or intermittently. 3-Partial/Moderate Assistance-helper does LESS THAN HALF the effort. [place] lifts, holds or supports trunk or limbs, but provides less than half the effort. 2-Substantial/Maximal Assistance-helper does MORE THAN HALF the effort. [place] lifts or holds trunk or limbs and provides more than half the effort. 9-Bfnzpkumk-xcndeo does ALL the effort. Patient does none of the effort to complete the activity. Or, the assistance of 2 or more helpers is required for the patient to complete the activity. If activity was not attempted, code reason: 7-Patient Refused. 9-Not Applicable-not attempted and the patient did not perform the activity before the current illness, exacerbation or injury. 10-Not Attempted due to Environmental Limitations-(lack of equipment, weather restraints, etc.). 88-Not Attempted due to Medical Conditions or Safety Concerns. Upper Body Dressing (QC): 5 Lower Body Dressing (QC): 5 On/Off Footwear: 5 OT Care Home Goals Care Home Goals Time Frame: Jul 20, 2022 Eating (QC): 6 Oral Hygiene (QC): 6 Toileting Hygiene (QC): 6 Shower/Bathe Self (QC): 5 Upper Body Dressing (QC): 6 Lower Body Dressing (QC): 6 On/Off Footwear (QC): 6 Additional Goals: 1-Demonstrate ADL Tasks, 2-Verbalize Understanding, 3- ImproveStrength/Chriss 1=Demonstrate adherence to instructed precautions during ADL tasks. 2=Patient will verbalize/demonstrate understanding of assistive devices/modifications for ADL. 3=Patient will improve strength/tolerance for activity to enable patient to perform ADL's. OT Education/Plan Problem List/Assessment Assessment: Decreased Activ Tolerance, Impaired Funct Balance, Impaired Self- Care Skills Discharge Recommendations Plan/Recommendations: Continue POC Treatment Plan/Plan of Care Patient would benefit from OT for education, treatment and training to promote independence in ADL's, mobility, safety and/or upper extremity function for ADL's. Plan of Care: ADL Retraining, Caregiver Training, Functional Mobility, Group Exercise/Act as Ind, UE Funct Exercise/Act Treatment Duration: Jul 20, 2022 Frequency: 3 times per week (3-5x/week) Estimated Hrs Per Day: .25 hour per day Agreement: Yes Rehab Potential: Fair Time/GCodes Start Time: 08:15 Stop Time: 08:35 Total Time Billed (hr/min): 20 Billed Treatment Time 1 visit ADL 1 (20 min) JULES CHIRINOS Jul 16, 2022 09:12
[2022-07-16] MEDS: LOSARTAN 50 MG (COZAAR) TAB PO SCH (09:13)
[2022-07-16] MEDS: DOCUSATE SODIUM 100 MG (COLACE) CAP PO SCH (09:14)
[2022-07-16] MEDS: AtorvaSTATin TABLET 10 MG TABLET PO SCH (09:14)
[2022-07-16] MEDS: SENNOSIDES 8.6 MG (SENOKOT) TAB PO SCH (09:14)
--- NOTE | 2022-07-16 09:35 | Cardiology Progress Note ---
Subjective Date Seen by Provider: Jul 16, 2022 Time Seen by Provider: 08:05 Subjective/Events-last exam Patient sitting up in chair, no new complaints. Denies any chest pain Objective-Cardiology Exam Last Set of Vital Signs Vital Signs 07/15/22 07/16/22 07/16/22 08:02 08:00 08:14 Temp 36.6 Pulse 76 Resp 18 B/P (MAP) 108/53 (71) Pulse Ox 94 O2 Delivery Room Air O2 Flow Rate 0.00 FiO2 21 I&O Intake and Output 07/16/22 00:00 Intake Total 1570 ml Balance 1570 ml Intake Oral 1570 ml # Voids 6 # Bowel Movements 2 General: Alert, Oriented X3, No Acute Distress HEENT: Atraumatic, PERRLA Neck: Supple, No JVD Lungs: Clear to Auscultation, Normal Air Movement Heart: Regular Rate, No Murmurs Abdomen: Normal Bowel Sounds, Soft, No Tenderness, No Masses Skin: No Rashes, No Breakdown Neuro: Normal Speech, Cranial Nerves 3-12 NL Psych/Mental Status: Mental Status NL, Mood NL A/P-Cardiology Admission Diagnosis Hip fracture Permanent atrial fibrillation Severe mitral regurgitation Hypertension Hyperlipidemia Assessment/Plan Hip fracture, s/p surgical repair with Dr. Bell on 07/06/22 Permanent atrial fibrillation Patient had multiple cardioversions in the past that has failed. She was seen by Dr. Burton, had multiple attempts to treat with antiarrhythmic medication without success. Decision was to accepted as a permanent atrial fibrillation maintained on oral anticoagulation. Patient has been stable and tolerating atrial fibrillation well. Started back on Xarelto on July 09, 2022 [id number] score 3, maintained on Xarelto Severe mitral regurgitation with flow reversal in the pulmonic vein, moderate to severe tricuspid regurgitation, normal systolic function ejection fraction 60%. Had FAREED done in June 2020. Hypertension, controlled, monitor blood pressure Hyperlipidemia, monitor lipids Mild bilateral carotid stenosis. Hypothyroidism, has history of thyroid nodule followed by Dr. Toledo History of breast cancer with lumpectomy 1997. Has been in remission Patient was seen and evaluated with Emili, examination performed, management plan was discussed, agree with the current scribed note, I made few changes to the note using Italic font Patient was seen at bedside, sitting comfortably No chest pain or shortness of breath Blood pressure stable Okay for discharge from cardiology standpoint Supervisory-Addendum Brief Supervisory Addendum Participated in pt care: history, MDM, physical Personally performed: exam, history, MDM Care discussed with: PA Results interpretation: Verified all documentation EMILI HARPER Jul 16, 2022 09:35 CARLOS FORBES MD Jul 16, 2022 11:25
--- NOTE | 2022-07-16 10:02 | Physical Therapy Daily Note ---
PT Daily Note-Current Subjective Patient agrees to PT. Pain Numeric Pain Scale: 4 Location: Right Location Body Site: Hip Section J - Health Conditions 1. Rarely or not at all 2. Occasionally 3. Frequently 4. Almost constantly 8. Unable to answer Pain Effect on Sleep: 1 Pain Interference with Therapy: 1 Pain Interference w/Day-to-Day: 1 Mental Status Patient Orientation: Normal For Age Transfers SCALE: Activities may be completed with or without assistive devices. 0-Hpwkgnxtqf-wgyiywg completes the activity by him/herself with no assistance from a helper. 5-Set-up or Clean-up Assistance-helper sets up or cleans up; patient completes activity. [place] assists only prior to or following the activity. 4-Supervision or Touching Assistance-helper provides verbal cues and/or touching/steadying and/or contact guard assistance as patient completes activity. Assistance may be provided throughout the activity or intermittently. 3-Partial/Moderate Assistance-helper does LESS THAN HALF the effort. [place] lifts, holds or supports trunk or limbs, but provides less than half the effort. 2-Substantial/Maximal Assistance-helper does MORE THAN HALF the effort. [place] lifts or holds trunk or limbs and provides more than half the effort. 5-Dbjxnfckb-ncxzal does ALL the effort. Patient does none of the effort to complete the activity. Or, the assistance of 2 or more helpers is required for the patient to complete the activity. If activity was not attempted, code reason: 7-Patient Refused. 9-Not Applicable-not attempted and the patient did not perform the activity before the current illness, exacerbation or injury. 10-Not Attempted due to Environmental Limitations-(lack of equipment, weather restraints, etc.). 88-Not Attempted due to Medical Conditions or Safety Concerns. Sit to Stand (QC): 5 Weight Bearing Right Lower Extremity: Right Weight Bearing/Tolerated Left Lower Extremity: Left Full Weight Bearing Gait Training Distance: 250' Walk 10 feet (QC): 4 Walk 50 ft with 2 Turns(QC): 4 Walk 150 ft (QC): 4 Gait Assistive Device: FWW slow, steady gait sequence Exercises Supine Ex: Ankle pumps, Quad Set, Heel Slides Supine Reps: 15 (in recliner with bilateral LE elevated) Seated Therapy Exercises: Ankle pumps, Long arc quads Seated Reps: 15 Assessment Patient is SBA to independent with all functional mobility but requires time to complete all functional tasks. Patient demonstrates reciprocal pattern with gait training. Multiple standing recovery periods due to SOA. SAO2 >90% RA. PT Credit Operations Processor Goals Credit Operations Processor Goals PT Group Home Goals Time Frame: Jul 14, 2022 Roll Left & Right (QC): 4 Sit to Lying (QC): 4 Lying-Sitting on Side/Bed(QC): 4 Sit to Stand (QC): 4 Chair/Qcu-zz-Tutlt Xfer(QC): 4 Toilet Transfer (QC): 4 Car Transfer (QC): 4 Does the Patient Walk: Yes Walk 10 feet (QC): 4 Walk 50ft with 2 Turns (QC): 3 Walk 150 ft (QC): 3 1 Step (curb) (QC): 3 4 Steps (QC): 3 12 Steps (QC): 3 PT Plan Treatment/Plan Treatment Plan: Continue Plan of Care Treatment Plan: Bed Mobility, Education, Functional Activity Chriss, Functional Strength, Group Therapy, Gait, Safety, Therapeutic Exercise, Transfers Treatment Duration: Aug 11, 2022 Frequency: 11 times per week Estimated Hrs Per Day: .25 hour per day Patient and/or Family Agrees t: Yes Time Time In: 856 Time Out: 919 Total Billed Treatment Time: 23 Total Billed Treatment 1 visit GT 15 min EX 8 min ROMA BARBOSA PT Jul 16, 2022 10:02
[2022-07-16] MEDS ORDERED: OXYC1TAB87 PO (10:06)
--- NOTE | 2022-07-16 10:07 | D/C HH Face to Face Order ---
D/C Face to Face Orders Reconcile Patient Problems Problems Reviewed?: Yes Instructions for Patient Via [employer], Patient Instructions/FollowUp: PCP 1 week Physician to follow Patient: [facility] Discharge Diet for Home: No Restrictions Patient Problems: Hip fracture Patient Data-Allergies,Ht & Wt Patient Allergies: Coded Allergies: No Known Allergies (Verified Allergy, Unknown, 07/05/22) Height (Feet): 5 Height (Inches): 2.00 Weight (Pounds): 189 Weight (Ounces): 8.5 Home Health Need/Face to Face Date of Face to Face: Jul 16, 2022 Clinical Findings: Generalized weakness and fatigue, Instability, Muscle weakness, Non or partial weight bearing, Pain with ambulation I have seen Pt usin-gd-wrvx: Yes Discharged To: Home Diagnosis/Conditions: Hip fracture Patient is Homebound due to: Muscle weakness, Pain w/ambulation Homebound Status Due to the above stated illness, injury or surgical procedure (medical condition or diagnosis) and associated clinical findings, the patient is homebound because of his/her inability to leave home except with aid of a supportive device and/or person AND leaving the home requires a considerable and taxing effort or is medically contraindicated. Pt req the following assistanc: Walker Home Health Nursing Orders Home Health Services Order: Nursing Services, Plastic Outfitter-Evaluate & Treat, Physical Therapy-Evaluate & Treat Home Health Infusion Therapy Line Start Date: Jul 05, 2022 Certify Stmt I certify that this patient is under my care and that I, a nurse practitioner or a physician; a assistant professor of radiology working with me, had a face to face encounter that - meets the physician face to face encounter requirements with this patient as dated. VIKRAM CASTRO DO Jul 16, 2022 10:07
--- NOTE | 2022-07-16 10:07 | Discharge Summary ---
Discharge Summary Hospital Course Was the Problem List Reviewed?: Yes Problems/Dx: (1) Intertrochanteric fracture Status: Acute Qualifiers: Qualified Codes: S72.141A - Displaced intertrochanteric fracture of right femur, initial encounter for closed fracture (2) Afib Status: Chronic Qualifiers: Qualified Codes: I48.21 - Permanent atrial fibrillation Hospital Course Date of Admission: Jul 05, 2022 at 14:43 Admission Diagnosis : Family Physician/Provider: Date of Discharge: 07/16/22 Discharge Diagnosis: [ ] Hospital Course: Pt had an uneventful hospital course for 12 days after she was admitted for hip fracture. Cardiology was consulted due to afib. Xarelto was held until shortly after surgery, when it was restarted. She had a long course. Her insurance refused in-patient rehab. She was maintained on aggressive therapy on 4th floor and was deemed stable for discharge on home health. Labs and Pending Lab Test: Microbiology 07/05/22 MRSA Screen - Final, Complete MRSA not isolated Home Meds Active Percocet 5-325 mg Tablet (Oxycodone HCl/Acetaminophen) 1 Each Tablet 1 Tab PO Q3HR PRN Reported Potassium Gluconate 595 Mg (99 Mg) Tablet.er 99 Mg PO DAILY PRN Xarelto (Rivaroxaban) 20 Mg Tablet 20 Mg PO HS Vitamin D3 (Cholecalciferol (Vitamin D3)) 50 Mcg (2000 Unit) Tablet 50 Mcg PO HS Iron (Ferrous Sulfate) 325 Mg (65 Mg Iron) Tablet 325 Mg PO MO,WE,FR @HS Diltiazem 24Hr ER (Diltiazem HCl) 240 Mg Cap.er.24h 240 Mg PO DAILY Hydrochlorothiazide 25 Mg Tablet 25 Mg PO DAILY Losartan Potassium 50 Mg Tablet 50 Mg PO DAILY Levothyroxine Sodium 137 Mcg Tablet 137 Mcg PO DAILY Atorvastatin Calcium 10 Mg Tablet 10 Mg PO DAILY Furosemide 40 Mg Tablet 40 Mg PO DAILY PRN Vitamin E (Vitamin E Acetate) 268 Mg (400 Unit) Capsule 268 Mg PO HS Metoprolol Succinate 50 Mg Tab.er.24h 50 Mg PO HS Oxybutynin Chloride 5 Mg Tablet 5 Mg PO DAILY PRN Assessment/Pt Instructions PCP in 1 week Discharge Planning: <30 minutes discharge planning Discharge Instructions Discharge Diet: No Restrictions Activity as Tolerated: Yes Discharge Physical Examination Vital Signs Vital Signs Date Time Temp Pulse Resp B/P (MAP) Pulse Ox O2 Delivery O2 Flow Rate FiO2 07/16/22 08:14 36.6 76 18 108/53 (71) 94 Room Air 07/15/22 08:02 21 07/15/22 08:01 0.00 General Appearance: No Apparent Distress, WD/WN, Chronically ill Respiratory: Lungs Clear Cardiovascular: Regular Rate, Rhythm Allergies: Coded Allergies: No Known Allergies (Verified Allergy, Unknown, 07/05/22) Discharge Summary Date of Admission Jul 05, 2022 at 14:43 Date of Discharge Discharge Date: Jul 16, 2022 Admission Diagnosis Assessment: Right hip fracture Atrial fibrillation On anticoagulants Plan: Surgical benefits outweigh medical risk it would be prudent to proceed on with surgical repair Discharge Diagnosis Continue therapy (1) Intertrochanteric fracture Status: Acute Qualifiers: Qualified Codes: S72.141A - Displaced intertrochanteric fracture of right femur, initial encounter for closed fracture (2) Afib Status: Chronic Qualifiers: Qualified Codes: I48.21 - Permanent atrial fibrillation Clinical Quality Measures DVT/VTE Risk/Contraindication: Contraindications-Pharm: Other *list below* Other: surgery VIKRAM CASTRO DO Jul 16, 2022 10:07
--- NOTE | 2022-07-16 13:59 | Physical Therapy Daily Note ---
PT Daily Note-Current Subjective Patient reports she is going home today. Agrees to PT. Pain Numeric Pain Scale: 3 Location: Right Location Body Site: Hip Section J - Health Conditions 1. Rarely or not at all 2. Occasionally 3. Frequently 4. Almost constantly 8. Unable to answer Pain Effect on Sleep: 1 Pain Interference with Therapy: 1 Pain Interference w/Day-to-Day: 1 Transfers SCALE: Activities may be completed with or without assistive devices. 7-Hqvewmsldw-nzulcas completes the activity by him/herself with no assistance from a helper. 5-Set-up or Clean-up Assistance-helper sets up or cleans up; patient completes activity. [place] assists only prior to or following the activity. 4-Supervision or Touching Assistance-helper provides verbal cues and/or touching/steadying and/or contact guard assistance as patient completes activity. Assistance may be provided throughout the activity or intermittently. 3-Partial/Moderate Assistance-helper does LESS THAN HALF the effort. [place] lifts, holds or supports trunk or limbs, but provides less than half the effort. 2-Substantial/Maximal Assistance-helper does MORE THAN HALF the effort. [place] lifts or holds trunk or limbs and provides more than half the effort. 2-Zqiftwlgc-fqfumd does ALL the effort. Patient does none of the effort to complete the activity. Or, the assistance of 2 or more helpers is required for the patient to complete the activity. If activity was not attempted, code reason: 7-Patient Refused. 9-Not Applicable-not attempted and the patient did not perform the activity before the current illness, exacerbation or injury. 10-Not Attempted due to Environmental Limitations-(lack of equipment, weather restraints, etc.). 88-Not Attempted due to Medical Conditions or Safety Concerns. Sit to Stand (QC): 5 Toilet Transfer (QC): 5 Weight Bearing Right Lower Extremity: Right Weight Bearing/Tolerated Left Lower Extremity: Left Full Weight Bearing Gait Training Distance: 200' Walk 10 feet (QC): 5 Walk 50 ft with 2 Turns(QC): 5 Walk 150 ft (QC): 5 Gait Assistive Device: FWW slow, slightly antalgic, reciprocal pattern Stair Training Stair Training: Handrails/: uses walker #of Steps: 1 1 Step (curb) (QC): 3 Stairs: Pattern: Step to Assessment Patient toileted self independently. Performed platform step with minimal assist due to no handrail. Patient progressing with gross motor skills and will continue to benefit from PT in home or placement. PT Optical Glass Sawyer Goals Optical Glass Sawyer Goals PT Optical Glass Sawyer Goals Time Frame: Jul 14, 2022 Roll Left & Right (QC): 4 Sit to Lying (QC): 4 Lying-Sitting on Side/Bed(QC): 4 Sit to Stand (QC): 4 Chair/Yuo-ii-Unzhv Xfer(QC): 4 Toilet Transfer (QC): 4 Car Transfer (QC): 4 Does the Patient Walk: Yes Walk 10 feet (QC): 4 Walk 50ft with 2 Turns (QC): 3 Walk 150 ft (QC): 3 1 Step (curb) (QC): 3 4 Steps (QC): 3 12 Steps (QC): 3 PT Plan Treatment/Plan Treatment Plan: Continue Plan of Care Treatment Plan: Bed Mobility, Education, Functional Activity Chriss, Functional Strength, Group Therapy, Gait, Safety, Therapeutic Exercise, Transfers Treatment Duration: Aug 11, 2022 Frequency: 11 times per week Estimated Hrs Per Day: .25 hour per day Patient and/or Family Agrees t: Yes Time Time In: 1330 Time Out: 1353 Total Billed Treatment Time: 23 Total Billed Treatment 1 visit FA x 2 23 min ROMA BARBOSA PT Jul 16, 2022 13:59
[2022-07-16 15:26] VITALS: BP 108/53
== END 2022-07-16 15:23 | disposition home health service (06) | DRG 481 ==
LOC: EDUNIT# 12:58 → ER 12:59 → 4TH 14:43
PROVIDERS: ADMIT Internal Medicine; ATTEND Internal Medicine
PROC: 0QS636Z Reposition Right Upper Femur with Intramedullary Internal Fixation Device, Percutaneous Approach (ICD-10-PCS; principal; 2022-07-06 14:09)
DX: S72.141A Displaced intertrochanteric fracture of right femur, initial encounter for closed fracture (principal); E87.1 Hypo-osmolality and hyponatremia; I48.21 Permanent atrial fibrillation; E03.9 Hypothyroidism, unspecified; E87.8 Other disorders of electrolyte and fluid balance, not elsewhere classified; E87.6 Hypokalemia; I08.1 Rheumatic disorders of both mitral and tricuspid valves; I10 Essential (primary) hypertension; E78.5 Hyperlipidemia, unspecified; I65.23 Occlusion and stenosis of bilateral carotid arteries; Z79.01 Long term (current) use of anticoagulants; Z86.73 Personal history of transient ischemic attack (TIA), and cerebral infarction without residual deficits; Z85.3 Personal history of malignant neoplasm of breast; W01.0XXA Fall on same level from slipping, tripping and stumbling without subsequent striking against object, initial encounter; Y92.017 Garden or yard in single-family (private) house as the place of occurrence of the external cause
CPT/HCPCS: 36415; 70450; 71045; 72125; 73552; 76000; 80053; 81000; 83880; 85007; 85025; 85027; 85610; 85730; 87081; 93005; 94664; 94760; 96374; 96375

== ENCOUNTER → 2023-01-31 | Outpatient (CLI) | payer MEDICARE ==
[~2023-01-31] MED LIST changes: +CHOL200059 PO; +DILT240C91 PO; +ENAL-70 PO; -ENAL20TA16 PO; +FERR-84 PO; +FURO40TA4 PO; +HYDR25TA4 PO; +LEVO137T2 PO; +LOSA50TA63 PO; +OXYC1TAB87 PO; +POTA99TA18 PO; +RIVA20TA PO; +VITA400C64 PO
== END ==
LOC: CARD 09:28
PROVIDERS: ATTEND Physician Assistant
DX: I08.3 Combined rheumatic disorders of mitral, aortic and tricuspid valves (principal); I11.9 Hypertensive heart disease without heart failure
CPT/HCPCS: 93306